=== PATIENT | female | born 1960 | race Caucasian/White ===

== ENCOUNTER 2022-03-18 08:56 | Outpatient (REF) | payer MEDICAID, SELFPAY ==
[2022-03-24 23:27] LABS: HPV mRNA E6/E7 rflx Not Detected (Not Detected)
== END 2022-03-18 08:57 | disposition home or self-care (01) ==
LOC: HO.LAB 08:56
PROVIDERS: Visit Provider Obstetrics & Gynecology
DX: Z01.411 Encounter for gynecological examination (general) (routine) with abnormal findings (principal); Z11.51 Encounter for screening for human papillomavirus (HPV); N95.0 Postmenopausal bleeding; N90.4 Leukoplakia of vulva
CPT/HCPCS: 87624; 88142; 99202

== ENCOUNTER → 2022-03-26 11:15 | Outpatient (REF) | payer MEDICAID, SELFPAY | LOC: HO.CARD 11:15 | PROVIDERS: Visit Provider Internal Medicine | DX: Z13.89 Encounter for screening for other disorder (principal) ==

== ENCOUNTER 2022-03-26 11:23 | Outpatient (REF) | payer MEDICAID, SELFPAY ==
--- NOTE | ~2022-03-26 | MM_ITS ---
EXAMINATION: MM SCREENING DIGITAL BREAST TOMOSYNTHESIS, BILATERAL CLINICAL INFORMATION: Screening. Asymptomatic. The lifetime risk of breast cancer based on the Tyrer-Cuzick Model is 8%. COMPARISON: Mammography: 09/06/2019, 11/09/2015, 10/29/2015 TECHNIQUE: Digital breast tomosynthesis is performed in both the craniocaudal and mediolateral oblique views along with computer-aided detection (CAD). Synthesized 2D images are generated from the tomosynthesis. FINDINGS: There are scattered areas of fibroglandular density (ACR BI-RADS breast composition Category b). There are no significant masses, abnormal calcifications, or other abnormalities. Indication Parenchymal pattern is similar to prior studies. The axilla and skin contours are unremarkable. MM/MM tomosynthesis screening BI IMPRESSION: No mammographic evidence of malignancy. ASSESSMENT: BI-RADS 1: Negative RECOMMENDATION: Routine annual mammography screening. This patient's information was entered into a reminder system with a target due date for their next mammogram.
== END 2022-03-26 11:24 | disposition home or self-care (01) ==
LOC: HO.MAMMO 11:23
PROVIDERS: PCP Family Medicine; Visit Provider Obstetrics & Gynecology
DX: Z12.31 Encounter for screening mammogram for malignant neoplasm of breast (principal); I48.19 Other persistent atrial fibrillation; I10 Essential (primary) hypertension
CPT/HCPCS: 77063; 77067; 93005; 99202

== ENCOUNTER → 2022-04-16 08:44 | Outpatient (REF) | payer MEDICAID, SELFPAY | LOC: HO.SL 08:44 | PROVIDERS: Visit Provider Internal Medicine | DX: Z13.89 Encounter for screening for other disorder (principal) ==

== ENCOUNTER 2022-04-17 09:45 | Outpatient (REF) | payer MEDICAID, SELFPAY | END 2022-04-17 09:46 | disposition home or self-care (01) | LOC: HO.LAB 09:45 | PROVIDERS: PCP Family Medicine; Visit Provider Obstetrics & Gynecology | DX: N95.0 Postmenopausal bleeding (principal); N90.4 Leukoplakia of vulva | CPT/HCPCS: 56605; 58100; 88305 ==

== ENCOUNTER → 2022-05-05 10:54 | Outpatient (REF) | payer MEDICAID, SELFPAY ==
--- NOTE | ~2022-05-05 | US_ITS ---
EXAMINATION: US PELVIS CLINICAL INFORMATION: Postmenopausal bleeding. COMPARISON: Pelvic ultrasound dated 01/10/2022. TECHNIQUE: Ultrasound of the pelvis is performed using both transabdominal and transvaginal transducers along with Doppler. Transvaginal imaging is performed due to inadequate visualization transabdominally. FINDINGS: Uterus: The uterus is anteverted and measures 9.6 x 3.8 x 5.5 cm. The uterus is anteverted and retroflexed. A complex, hypoechoic nabothian cyst is seen measuring 0.8 x 0.6 x 1.0 cm. This is sharply circumscribed and shows no associated color Doppler flow. The double wall endometrial thickness is 1.0 mm. The uterus is smooth in contour and has normal myometrial echogenicity. No visible fibroid. Adnexa: Both ovaries are visualized. There is normal color flow to the adnexa. There is no ovarian torsion. There is no pelvic ascites or fluid collection. Right ovary measures 1.9 x 1.2 x 1.7 cm (volume 2.0 mL). Left ovary measures 1.8 x 1.2 x 1.8 cm (volume 2.0 mL). US/US pelvic and transvaginal IMPRESSION: 1. There is again abnormal postmenopausal thickening of the endometrial stripe. Gynecology evaluation and management are recommended, with consideration for tissue sampling. 2. A complex, hypoechoic nabothian cyst is seen within the cervix, as detailed.
== END ==
LOC: HO.SL 10:54
PROVIDERS: PCP Family Medicine; Visit Provider Obstetrics & Gynecology
DX: N95.0 Postmenopausal bleeding (principal)
CPT/HCPCS: 76830; 76856

== ENCOUNTER → 2022-05-16 10:26 | Outpatient (REF) | payer MEDICAID, SELFPAY ==
--- NOTE | 2022-05-16 10:28 | ECG_ITS ---
Hook-up date: 2022-05-16 10:33:00 Duration: 47:59:00 Test Indications: PALPITATIONS Medications: [id number] QRS complexes 731 Ventricular ectopics which represent <1 % of total QRS comp. * Supraventricular ectopics which represent % of total QRS comp. * Paced QRS complexs which represent % of total QRS comp. VENTRICULAR ECTOPY 709 Isolated 0 Bigeminal Cycles 11 Couplets 0 Runs 0 Beats in Runs * Beats LONGEST at * BPM at :: -- * Beats FASTEST at * BPM at :: -- SUPRAVENTRICULAR ECTOPY * Isolated * Couplets * Runs * Beats in Runs * Beats LONGEST at * BPM at :: -- * Beats FASTEST at * BPM at :: -- HEART RATES 41 MIN at 00:20:26 2022-05-17 92 AVG 217 MAX at 07:02:17 2022-05-17 LONGEST RR 2.2720 secs at 00:03:42 2022-05-18 S-T LEVELS Channel 1 - 128 mm at 10:33:00 2022-05-16 - 128 mm at 10:33:00 2022-05-16 Channel 2 - 128 mm at 10:33:00 2022-05-16 - 128 mm at 10:33:00 2022-05-16 Channel 3 - 128 mm at 02:95:21 -- - 128 mm at 02:95:21 Basic rhythm Atrial fibrillation Average HR of 92 bpm with maximum HR of 217 bpm, with borderline rate control No significant pauses. Occasional Premature ventricular complexes Patient did not report any symptoms in the diary Referred By: Daryn Nair Overread By: CARMEL HUDDLESTON MD
--- NOTE | 2022-05-16 10:28 | CA_ITS ---
Transthoracic Echocardiogram Patient (Last, First, Middle): Kavita Gil M Gender: Female Date of : 1960 Age: 61 Procedure Date: 05/16/2022 Procedure Type: Transthoracic Echocardiogram Location: OP Height: 165.1 cm Weight: 121.56 kg BSA: 2.24 m2 Heart Rate: bpm BP: 145 / 84 mmHg Steam Flattener: Referring MD: Daryn Nair MD Symptoms: I48.19 - Other persistent atrial fibrillation Study Quality: Fair ECG Rhythm: Atrial Fibrillation with rapid rate Conclusions: - LVEF difficult to assess due to atrial fibrillation with rapid rate, but suspect >50%. - No obvious valvular pathology seen on this study. - There is mild dilatation of the ascending aorta measuring 4.20 cm. Findings Left Ventricle Normal left ventricular cavity size. There is moderately increased left ventricular wall thickness. Regional wall motion abnormalities can not be excluded due to suboptimal endocardial definition. Diastolic function is indeterminate on the basis of available data. LVEF difficult to assess due to atrial fibrillation with rapid rate, but suspect >50%. Right Ventricle Normal right ventricular cavity size and systolic function. Atria The left atrium is mildly dilated. The right atrium is normal in size. Aortic Valve The aortic valve was not well visualized. There is no aortic valve stenosis. There is no aortic valve regurgitation. Mitral Valve The mitral valve appears normal. There is trace mitral valve regurgitation. There is no mitral valve stenosis. Pulmonic Valve The pulmonic valve is likely normal. Tricuspid Valve There is trace tricuspid valve regurgitation. There is no evidence of pulmonary hypertension. Great Vessels There is mild dilatation of the ascending aorta measuring 4.20 cm. Venous The inferior vena cava is normal in size and collapses greater than 50% with inspiration. Pericardium/Pleural There is no evidence of pericardial effusion. Prior Study Comparison No prior study available for comparison. Recommendations, Care & Conclusions No obvious valvular pathology seen on this study. Measurements 2D Linear Measurements IVSd: 1.33 0.6-0.9/0.6-1.0 cm LVIDd: 4.85 3.9-5.3/4.2-5.9 cm LVIDd Index: 2.17 2.4-3.2/2.2-3.1 cm/m2 LVIDs: 3.03 2.0-3.6 cm LVPWd: 1.33 0.7-1.1 cm Ao Root: 3.40 2.1-3.5 cm LA Diam: 4.40 2.7-3.8/3.0-4.0 cm LAIDs Index: 1.96 1.5-2.3 cm/m2 LV Mass: 321.86 67-162/88-224 g LV Mass Index: 143.69 43-95/49-115 g/m2 LVOT Diam: 2.10 3.0+(-)1.3 cm 2D Systolic Function EF 4C: 53.30 >55% EF 2C: 47.60 >55% EF BiP: 49.20 >55% Mitral Valve MV Pk E: 1.16 MV Decel Time: 137.00 E'Lateral: 10.10 E'Medial: 8.05 E/E' Med: 14.40 E/E' Lat: 11.50 PHT: 40.00 MVA PHT: 5.50 Decel Mills: 8.42 Aortic Valve AoV Pk Rohit: 1.31 AoV Mn Rohit: 0.95 AoV VTI: 0.31 AoV Pk Grad: 7.00 Aov Mn Grad: 4.00 ELIZ Cont.VTI: 1.94 LVOT LVOT Pk Rohit: 0.90 LVOT Mn Rohit: 0.61 LVOT VTI: 0.18 LVOT Pk Grad: 3.00 LVOT Mn Grad: 2.00 LVOT Diam: 2.10 LVOT Area: 3.46 Diastolic Function MV Pk E: 1.16 E'Medial: 8.05 E/E' Med: 14.40 E' Laterial: 10.10 E/E' Lat: 11.50 Right Ventricle TAPSE (mm): 18.00 Tricuspid Valve TR Pk Rohit: 2.05 TR Pk Grad: 17.00 RA Press: 3.00 RVSP: 20.00 Great Vessels Aorta Ao Root-2D: 3.40 2.0-3.7 cm Ao Asc: 4.20 2.1-3.4 cm Pulmonary Valve PV Pk Rohit: 0.97 Peak PV Grad: 4.00 Updated in Other Vendor System with Status of Final Daryn Nair MD electronically signed on 05/17/2022 1:22:21 PM with status of Final
--- NOTE | 2022-05-16 11:36 | ECG_ITS ---
Test Reason : afib, sob, fatigue Blood Pressure : / mmHG Vent. Rate : 143 BPM Atrial Rate : 000 BPM P-R Int : 000 ms QRS Dur : 074 ms QT Int : 256 ms P-R-T Axes : 000 -04 002 degrees QTc Int : 395 ms Atrial fibrillation with rapid ventricular response with premature ventricular or aberrantly conducted complexes ST & T wave abnormality, consider inferior ischemia Abnormal ECG When compared with ECG of 28-OCT-2011, Atrial fibrillation with rapid ventricular response has replaced Sinus rhythm Heart rate has increased Referred By: Daryn Nair Electronically Signed By:PEÑA ESCALERA
== END ==
LOC: HO.CARD 10:26
PROVIDERS: PCP Family Medicine; Visit Provider Internal Medicine
DX: I48.19 Other persistent atrial fibrillation (principal); R00.2 Palpitations
CPT/HCPCS: 36415; 80053; 83880; 84484; 85025; 87635; 93005; 93225; 93226; 93306; 96374; 99284

== ENCOUNTER 2022-05-16 12:00 | Emergency (ER) | payer MEDICAID, SELFPAY ==
--- NOTE | 2022-05-16 12:02 | ECG_ITS ---
Test Reason : palpitations Blood Pressure : / mmHG Vent. Rate : 123 BPM Atrial Rate : 000 BPM P-R Int : 000 ms QRS Dur : 076 ms QT Int : 354 ms P-R-T Axes : 000 -09 -13 degrees QTc Int : 506 ms Atrial fibrillation with rapid ventricular response with premature ventricular or aberrantly conducted complexes Abnormal ECG When compared with ECG of 16-MAY-2022 11:32, Heart rate has decreased Referred By: Generic ED Physician Electronically Signed By:PEÑA ESCALERA
[2022-05-16 12:04] VITALS: BP 133/81; PULSE 88; RESP 18; TEMP 36.6; O2SAT 97; BMI 52.1
[2022-05-16 12:26] LABS: MANUAL DIFF FLAG NO
[2022-05-16 12:28] VITALS: BP 156/78; PULSE 124; RESP 18; TEMP 36.5; O2SAT 97
[2022-05-16 12:28] LABS: Basophils Percent Auto 0.2 % (0-2); Eosinophils Absolute Auto 0.1 X10*3/uL (0.0-0.4); Eosinophils Percent Auto 0.8 % (0-4); Hematocrit 44.3 % (37.0-47.0); Hemoglobin 13.8 g/dl (12.0-16.0); Imm Gran Abs Auto 0.04 X10*3/uL (0.00-0.03); Imm Gran Pct Auto 0.4 % (0.0-0.4); Lymphocytes Absolute Auto 2.3 X10*3/uL (1.2-4.9); Lymphocytes Percent Auto 21.2 % (20-40); Mean Corpuscular HGB Conc 31.2 g/dl (31.0-35.0); Mean Corpuscular Hemoglobin 26.6 pg (27.0-33.0); Mean Corpuscular Volume 85.5 fL (80.0-98.0); Mean Platelet Volume 10.1 fL (9.4-12.3); Monocytes Absolute Auto 0.8 X10*3/uL (0.1-1.2); Monocytes Percent Auto 7.2 % (2-11); Neutrophils Absolute Auto 7.5 x10*3/uL (2.0-8.3); Neutrophils Percent Auto 70.2 % (45-73); Platelet Count 342 X10*3/uL (160-400); Red Blood Count 5.18 X10*6/uL (4.20-5.50); Red Cell Distribution Width 15.9 % (11.0-16.0); White Blood Count 10.6 X10*3/uL (4.8-10.8)
--- NOTE | 2022-05-16 12:36 | ED_ITS ---
HPI - Arrhythmia/Palpitations General Chief Complaint: Arrhythmia/Palpitations Stated Complaint: heart rate high Time Seen by Provider: 05/16/22 12:19 Source: patient, family and old records reviewed Mode of arrival: ambulatory History of Present Illness HPI narrative: Patient with the relatively recent diagnosis of atrial fibrillation about 2-3 months ago. She is on metoprolol and Eliquis. Today she went for an echocardiogram and Holter monitor placement in her cardiology office and was found have a heart rate in the 160s to 180s range maximum. She was sent to the emergency department for further workup and treatment. She denies chest pain. She does describe palpitations and can feel when her heart is racing. She does not know of any precipitating factors that cause her heart to race today other than social stressors at home. No recent illnesses. No cough. Some dyspnea with exertion. No history of thromboembolic disease. She denies missing medications Related Data Home Medications Medication Instructions Recorded Confirmed albuterol sulfate 90 mcg/actuation 2 puff PO Q4-6H PRN 03/18/22 03/26/22 aerosol inhaler (ProAir HFA) allopurinol 100 mg tablet 100 mg PO 03/18/22 03/26/22 amlodipine 5 mg tablet 5 mg PO QAM 03/18/22 03/26/22 apixaban 5 mg tablet (Eliquis) 5 mg PO BID 03/18/22 03/26/22 atorvastatin 40 mg tablet 40 mg PO BEDTIME 03/18/22 03/26/22 calcium carbonate 600 mg-vitamin 1 tab PO 03/18/22 03/26/22 D3 10 mcg (400 unit) tablet sertraline 25 mg tablet 25 mg PO QAM 03/18/22 03/26/22 valsartan 320 mg tablet 320 mg PO QAM 03/18/22 03/26/22 metoprolol tartrate 50 mg tablet 50 mg PO BID 03/26/22 03/26/22 Previous Rx's Medication Instructions Recorded diltiazem HCl 120 mg 120 mg PO DAILY #30 caps 05/16/22 capsule,extended release 24 hr Allergies Allergy/AdvReac Type Severity Reaction Status Date / Time No Known Allergies Allergy Verified 03/26/22 11:04 Review of Systems Constitutional: Comments: No fevers or chills Cardiovascular: Comments: Palpitations. No chest pain Respiratory: Comments: Dyspnea on exertion only. No cough Gastrointestinal: Comments: No nausea vomiting diarrhea or abdominal pain Musculoskeletal: Comments: No musculoskeletal pain or injuries Integumentary/Breasts: Comments: No rash Neurologic: Comments: No focal neurologic deficits [facility] Past Medical History Medical History (Updated 05/16/22 @ 12:40 by Trae Ziegler MD) HTN (hypertension) Hyperlipidemia Persistent atrial fibrillation Surgical History History of section Hx of tubal ligation Family History Family History Father HTN (hypertension) Mother Epilepsia Alzheimer disease Paternal Uncle HTN (hypertension) Sister HTN (hypertension) Social History Social History Household Members: Spouse Housing: House Alcohol intake: former Patient Tobacco Use Status: Former Tobacco user Advance Directives: No Advance Directives Information Provided: No Physical Exam Vital Signs: Vital Signs: Last Vital Signs Temp 97.7 F 05/16/22 12:28 Pulse 89 05/16/22 12:59 Resp 16 05/16/22 12:59 BP 156/78 H 05/16/22 12:28 Pulse Ox 99 05/16/22 12:59 O2 Del Method 05/16/22 12:59 BMI result Body Mass Index 52.1 Const: Other: Awake alert. No acute distress. Ambulated to room without difficulty Resp: Other: Diminished but clear and equal Cardio: Other: Irregularly irregular and tachycardic to approximately 130 beats per minute on my exam GI: Other: Soft nontender nondistended Skin: Other: Warm pink and dry without rash Neuro: Other: Nonfocal neuro exam Course Course Course Narrative: Atrial fibrillation with RVR Rule out ischemia Patient is on metoprolol but had been on that prior to her diagnosis of atrial fibrillation. Will medicate with calcium channel licha for rate control. Blood pressure is elevated and should tolerate dual therapy without difficulty. Await lab work. EKG shows atrial fibrillation with RVR without evidence of acute ischemia 13:03. Diltiazem, 10 mg IV with good rate control now in the 80-90 range. Will add diltiazem p.o., 30 mg. Will discuss with her clinical data specialist. 13:11. Cardiology agrees with plan. Recommends we stop amlodipine. Stable for discharge home MDM - Arrhythmia/Palpitations Lab Data Result diagrams: 05/16/22 12:21 05/16/22 12:21 Labs: Lab Results 05/16/22 05/16/22 05/16/22 Range/Units 12:21 12:21 12:21 WBC 10.6 (4.8-10.8) X10*3/uL RBC 5.18 (4.20-5.50) X10*6/uL Hgb 13.8 (12.0-16.0) g/dl Hct 44.3 (37.0-47.0) % MCV 85.5 (80.0-98.0) fL MCH 26.6 L (27.0-33.0) pg MCHC 31.2 (31.0-35.0) g/dl RDW 15.9 (11.0-16.0) % Plt Count 342 (160-400) X10*3/uL MPV 10.1 (9.4-12.3) fL Immature Gran % (Auto) 0.4 (0.0-0.4) % Neut % (Auto) 70.2 (45-73) % Lymph % (Auto) 21.2 (20-40) % Dougherty % (Auto) 7.2 (2-11) % Eos % (Auto) 0.8 (0-4) % Baso % (Auto) 0.2 (0-2) % Lymph # (Auto) 2.3 (1.2-4.9) X10*3/uL Dougherty # (Auto) 0.8 (0.1-1.2) X10*3/uL Eos # (Auto) 0.1 (0.0-0.4) X10*3/uL Baso # (Auto) 0.0 (0.0-0.2) X10*3/uL Abs Immat Gran (auto) 0.04 H (0.00-0.03) X10*3/uL Absolute Neuts (auto) 7.5 (2.0-8.3) x10*3/uL Absolute Nucleated RBC 0.000 (0.0-0.012) X10*3/uL Nucleated RBC % (auto) 0.0 (0.0-0.2) /100WBC Sodium 141 (135-145) mmol/L Potassium 3.8 (3.3-5.1) mmol/L Chloride 106 (96-108) mmol/L Carbon Dioxide 24 (22-29) mmol/L Anion Gap 15 (12-20) BUN 12 (9-16) mg/dL Creatinine 1.07 (0.5-1.4) mg/dL Estim Creat Clear Calc 64.3 Estimated GFR 52 Random Glucose 85 (60-115) mg/dL Calcium 9.2 (8.4-10.2) mg/dL Total Bilirubin 0.6 (0.0-1.0) mg/dL AST 15 (5-31) U/L ALT 15 (0-31) U/L Alkaline Phosphatase 90 (39-117) U/L Troponin I High Sens < 3.5 (<3.5-17.0) ng/L Total Protein 7.3 (6.5-8.0) g/dL Albumin 3.9 (3.5-5.0) g/dL COVID-19 ([facility]) (Negative) COVID-19 Clin Com 05/16/22 Range/Units 12:21 WBC (4.8-10.8) X10*3/uL RBC (4.20-5.50) X10*6/uL Hgb (12.0-16.0) g/dl Hct (37.0-47.0) % MCV (80.0-98.0) fL MCH (27.0-33.0) pg MCHC (31.0-35.0) g/dl RDW (11.0-16.0) % Plt Count (160-400) X10*3/uL MPV (9.4-12.3) fL Immature Gran % (Auto) (0.0-0.4) % Neut % (Auto) (45-73) % Lymph % (Auto) (20-40) % Dougherty % (Auto) (2-11) % Eos % (Auto) (0-4) % Baso % (Auto) (0-2) % Lymph # (Auto) (1.2-4.9) X10*3/uL Dougherty # (Auto) (0.1-1.2) X10*3/uL Eos # (Auto) (0.0-0.4) X10*3/uL Baso # (Auto) (0.0-0.2) X10*3/uL Abs Immat Gran (auto) (0.00-0.03) X10*3/uL Absolute Neuts (auto) (2.0-8.3) x10*3/uL Absolute Nucleated RBC (0.0-0.012) X10*3/uL Nucleated RBC % (auto) (0.0-0.2) /100WBC Sodium (135-145) mmol/L Potassium (3.3-5.1) mmol/L Chloride (96-108) mmol/L Carbon Dioxide (22-29) mmol/L Anion Gap (12-20) BUN (9-16) mg/dL Creatinine (0.5-1.4) mg/dL Estim Creat Clear Calc Estimated GFR Random Glucose (60-115) mg/dL Calcium (8.4-10.2) mg/dL Total Bilirubin (0.0-1.0) mg/dL AST (5-31) U/L ALT (0-31) U/L Alkaline Phosphatase (39-117) U/L Troponin I High Sens (<3.5-17.0) ng/L Total Protein (6.5-8.0) g/dL Albumin (3.5-5.0) g/dL COVID-19 ([facility]) Negative (Negative) COVID-19 Clin Com See Note Discharge Plan Discharge Clinical Impression: Atrial fibrillation Patient Disposition: Home, Self-Care Instructions: A-fib (Atrial Fibrillation) (ED), Blood Thinners (ED) Additional Instructions: We are prescribing Cardizem to help keep your heart rate slow. Stop taking amlodipine in the meantime. Follow-up with your clinical data specialist as scheduled Prescriptions: New diltiazem HCl 120 mg capsule,extended release 24hr 120 mg PO DAILY Qty: 30 0RF No Action valsartan 320 mg tablet 320 mg PO QAM amlodipine 5 mg tablet 5 mg PO QAM atorvastatin 40 mg tablet 40 mg PO BEDTIME calcium carbonate-vitamin D3 600 mg-10 mcg (400 unit) tablet 1 tab PO allopurinol 100 mg tablet 100 mg PO Eliquis 5 mg tablet 5 mg PO BID sertraline 25 mg tablet 25 mg PO QAM albuterol sulfate [ProAir HFA] 90 mcg/actuation HFA aerosol inhaler 2 puff PO Q4-6H PRN metoprolol tartrate 50 mg tablet 50 mg PO BID
[2022-05-16 12:43] LABS: COVID-19 Test Negative (Negative); IDNOW Serial# 9DB6401D
[2022-05-16] MEDS: dilTIAZem HCL 50 MG/10 ML VIAL 10 MG IVPUSH (12:45)
[2022-05-16 12:48] LABS: Alanine Aminotransferase 15 U/L (0-31); Albumin Level 3.9 g/dL (3.5-5.0); Alkaline Phosphatase 90 U/L (39-117); Anion Gap 15 (12-20); Aspartate Amino Transferase 15 U/L (5-31); Bilirubin Total 0.6 mg/dL (0.0-1.0); Blood Urea Nitrogen 12 mg/dL (9-16); Calcium 9.2 mg/dL (8.4-10.2); Carbon Dioxide 24 mmol/L (22-29); Chloride 106 mmol/L (96-108); Creatinine Clr Calc Pharmacy 64.3; Estimated Glomerular Filt Rate 52; Glucose Random 85 mg/dL (60-115); Potassium 3.8 mmol/L (3.3-5.1); Sodium 141 mmol/L (135-145); Total Protein 7.3 g/dL (6.5-8.0)
[2022-05-16 12:52] LABS: Troponin-I High Sensitivity < 3.5 ng/L (<3.5-17.0)
[2022-05-16 12:59] VITALS: PULSE 89; RESP 16; O2SAT 99
[2022-05-16] MEDS: dilTIAZem HCL 30 MG TABLET PO (13:18)
[2022-05-16 13:52] LABS: B Type Natriuretic Peptide 128 pg/mL (<100)
== END 2022-05-18 22:40 | disposition home or self-care (01) ==
PROVIDERS: Emergency Provider Emergency Medicine
DX: I48.91 Unspecified atrial fibrillation (principal); R00.2 Palpitations; R06.02 Shortness of breath; Z20.822 Contact with and (suspected) exposure to COVID-19; Z79.899 Other long term (current) drug therapy; Z87.891 Personal history of nicotine dependence
CPT/HCPCS: 36415; 80053; 83880; 84484; 85025; 87635; 93005; 96374; 99284

== ENCOUNTER → 2022-05-19 10:26 | Outpatient (BNVA) | payer MEDICAID, SELFPAY | PROVIDERS: PCP Family Medicine; Visit Provider Obstetrics & Gynecology | DX: N95.0 Postmenopausal bleeding (principal) | CPT/HCPCS: 99212 ==

== ENCOUNTER → 2022-05-27 10:52 | Outpatient (BNVA) | payer MEDICAID, SELFPAY | PROVIDERS: PCP Family Medicine; Visit Provider Internal Medicine | DX: I48.19 Other persistent atrial fibrillation (principal); I10 Essential (primary) hypertension; G47.33 Obstructive sleep apnea (adult) (pediatric); Z79.01 Long term (current) use of anticoagulants; Z79.899 Other long term (current) drug therapy | CPT/HCPCS: 99212 ==

== ENCOUNTER → 2022-09-25 12:59 | Outpatient (REF) | payer MEDICAID, SELFPAY ==
--- NOTE | 2022-09-25 13:03 | HM_ITS ---
* Total monitoring time 2 days. * Underlying rhythm is atrial fibrillation. Average ventricular rate 67/Min. Range 42 to 121/Min. * Most to the ventricular rates are within range. * Rare PVCs with low burden. * No significant pauses or AV blocks. * No patient marker or diary events. * Overall, well controlled atrial fibrillation. MTDD
== END ==
LOC: HO.CARD 12:59
PROVIDERS: Visit Provider Internal Medicine
DX: I48.19 Other persistent atrial fibrillation (principal)
CPT/HCPCS: 93242

== ENCOUNTER 2023-02-23 10:46 | Outpatient (REF) | payer MEDICAID, SELFPAY | END 2023-02-23 10:47 | disposition home or self-care (01) | LOC: HO.HHCX 10:46 | PROVIDERS: Visit Provider Student in an Organized Health Care Education/Training Program | DX: M25.562 Pain in left knee (principal) | CPT/HCPCS: 73560 ==

== ENCOUNTER 2023-03-18 09:23 | Outpatient (REF) | payer MEDICAID, SELFPAY ==
[2023-03-18 11:28] LABS: MANUAL DIFF FLAG NO
[2023-03-18 11:38] LABS: Basophils Percent Auto 0.4 % (0-2); Eosinophils Absolute Auto 0.1 X10*3/uL (0.0-0.4); Eosinophils Percent Auto 1.5 % (0-4); Hematocrit 43.9 % (37.0-47.0); Imm Gran Abs Auto 0.03 X10*3/uL (0.00-0.03); Imm Gran Pct Auto 0.4 % (0.0-0.4); Lymphocytes Absolute Auto 2.2 X10*3/uL (1.2-4.9); Lymphocytes Percent Auto 27.1 % (20-40); Mean Corpuscular HGB Conc 31.9 g/dl (31.0-35.0); Mean Corpuscular Hemoglobin 28.4 pg (27.0-33.0); Mean Platelet Volume 11.4 fL (9.4-12.3); Monocytes Absolute Auto 0.5 X10*3/uL (0.1-1.2); Monocytes Percent Auto 6.1 % (2-11); Neutrophils Absolute Auto 5.3 x10*3/uL (2.0-8.3); Neutrophils Percent Auto 64.5 % (45-73); Platelet Count 287 X10*3/uL (160-400); Red Blood Count 4.93 X10*6/uL (4.20-5.50); Red Cell Distribution Width 13.4 % (11.0-16.0); White Blood Count 8.2 X10*3/uL (4.8-10.8)
[2023-03-18 11:44] LABS: Estimated Average Glucose 108 mg/dL; Hemoglobin A1c % 5.4 %
[2023-03-18 12:02] LABS: Alanine Aminotransferase 12 U/L (0-31); Albumin Level 3.5 g/dL (3.5-5.0); Alkaline Phosphatase 78 U/L (39-117); Anion Gap 10 (12-20); Aspartate Amino Transferase 12 U/L (5-31); Bilirubin Direct 0.2 mg/dL (0.0-0.5); Bilirubin Total 0.6 mg/dL (0.0-1.0); Blood Urea Nitrogen 16 mg/dL (9-16); Calcium 9.2 mg/dL (8.4-10.2); Carbon Dioxide 28 mmol/L (22-29); Chloride 108 mmol/L (96-108); Cholesterol 194 mg/dL; Estimated Glomerular Filt Rate 48; Glucose Random 102 mg/dL (60-115); HDL Cholesterol 42 mg/dL; LDL Cholesterol Calculated 132 mg/dl; Potassium 3.9 mmol/L (3.3-5.1); Sodium 142 mmol/L (135-145); Triglycerides 102 mg/dL
[2023-03-18 12:08] LABS: HIV AB/AG Nonreactive (Nonreactive); HIV Num 1 0.05 S/CO (0.00-0.99)
[2023-03-18 12:14] LABS: ~HepC Num1 0.12 S/CO (0.00-0.79); ~Hepatitis C Antibody Nonreactive (Nonreactive)
[2023-03-18 12:21] LABS: TSH reflex Free T4 0.89 uIU/mL (0.32-4.0)
[2023-03-20 02:48] LABS: Rubella IgG Antibody <0.90 Index
[2023-03-20 10:30] LABS: Rubeola IgG (Measles) >300.00 AU/mL
== END 2023-03-18 09:24 | disposition home or self-care (01) ==
LOC: HO.HHCL 09:23
PROVIDERS: Visit Provider Family Medicine
DX: Z11.4 Encounter for screening for human immunodeficiency virus [HIV] (principal); Z11.3 Encounter for screening for infections with a predominantly sexual mode of transmission; E11.65 Type 2 diabetes mellitus with hyperglycemia; E66.01 Morbid (severe) obesity due to excess calories; I10 Essential (primary) hypertension; Z78.9 Other specified health status
CPT/HCPCS: 36415; 80048; 80061; 80076; 83036; 84443; 85025; 86735; 86762; 86765; 86803; 87389

== ENCOUNTER → 2023-06-03 21:13 | Outpatient (REF) | payer MEDICAID, SELFPAY | LOC: HO.SL 21:13 | PROVIDERS: PCP Family Medicine; Visit Provider Internal Medicine | DX: I48.19 Other persistent atrial fibrillation (principal) | CPT/HCPCS: 95810 ==

== ENCOUNTER → 2023-06-03 21:22 | Outpatient (BNV) | payer MEDICAID, SELFPAY | PROVIDERS: PCP Family Medicine; Visit Provider Internal Medicine | DX: G47.33 Obstructive sleep apnea (adult) (pediatric) (principal) | CPT/HCPCS: 95810 ==

== ENCOUNTER 2023-07-07 12:53 | Outpatient (AMB) | payer MEDICAID, SELFPAY ==
--- NOTE | 2023-07-07 12:59 | A.OFFVIS_ITS ---
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 She has a history of persistent atrial fibrillation, HTN, and now sleep apnea. She reports occasional fast heart rates/palpitations. Denies SOB, swelling, or bleeding issues. Tolerating meds. BPs at home have been 120-130 systolic. [facility] Medical History Persistent atrial fibrillation Hyperlipidemia HTN (hypertension) Surgical History Hx of tubal ligation History of section Family History Father HTN (hypertension) Mother Epilepsia Alzheimer disease Paternal Uncle HTN (hypertension) Sister HTN (hypertension) Social History Household Members: Spouse Housing: House Alcohol intake: former Patient Tobacco Use Status: Former Tobacco user Review of Systems Const Denies chills, Denies fatigue, Denies fever(s), Denies frequent falls, Denies weakness, Denies weight gain and Denies weight loss ENT Denies dizziness Card Denies chest pain, Denies chest pain with activity, Denies syncope, Denies rapid heart rate, Denies pedal edema, Denies irregular heart rhythm, Denies leg edema, Denies lightheadedness, Denies palpitations, Denies dyspnea, Denies dyspnea on exertion, Denies orthopnea and Denies other (LOC) Resp Denies cough, Denies dyspnea and Denies dyspnea on exertion GI Denies hematochezia and Denies change in bowel habits Musc Denies abnormal gait, Denies arthralgias, Denies muscle weakness, Denies numbness, Denies radiating pain into limb and Denies tingling Neuro Denies abnormal gait, Denies dizziness, Denies syncope, Denies frequent falls, Denies numbness, Denies tingling and Denies weakness Endo Denies fatigue and Denies palpitations Physical Exam Vital Signs: Last Vital Signs Pulse 76 07/07/23 13:00 BP 118/60 07/07/23 13:00 BMI result Body Mass Index 52.6 Const General: healthy appearing and no acute distress Orientation/consciousness: patient oriented x3 HEENT Other: Unremarkable Head: Yes normal to inspection Eyes General: appearance normal, both eyes and all related structures Neck Neck: Yes normal visual inspection Chest Chest palpation & inspection: normal inspection of the chest Resp Effort & Inspection: normal respiratory effort Auscultation: clear to auscultation bilaterally Cardio Jugular venous distension: no JVD Palpation: normal PMI Rate: regular rate Rhythm: regular rhythm Heart sounds: S1 normal heart sound present, S2 normal heart sound present, no click, no gallops, no murmurs and no rubs GI Inspection: Yes normal to inspection Palpation (GI): Soft to palpation Back/Spine/Pelvis Other: unremarkable Skin General skin exam: no rashes or lesions noted Neuro General: patient oriented x3 Extrem General: Yes normal to inspection Psych Appearance: grossly normal Mental Status: mental status grossly normal Office Procedures EKG Details: EKG today, Atrial Fibrillation. Rate: 72 bpm QTc 457ms. No significant changes. [id number], Complete Assessment & Plan Assessment & Plan (1) ELENI (obstructive sleep apnea): Code(s): G47.33 - Obstructive sleep apnea (adult) (pediatric) (2) Essential (primary) hypertension: Code(s): I10 - Essential (primary) hypertension (3) Persistent atrial fibrillation: Code(s): I48.19 - Other persistent atrial fibrillation Plan Will refer to pulmonology for CPAP use. Discuss the importance of CPAP use and the effects of poor quality sleep on the heart and body. She agreed. Continue heart healthy diet, reduction of weight. and medications as currently prescribed. Report any new or worsening sysmptoms Will have her return in 6 months to meet with Dr. Nair for a follow-up. Orders: Referrals Pulmonary Medicine Referral G47.33 - Obstructive sleep apnea (adult) (pediatric), I10 - Essential (primary) hypertension, I48.19 - Other persistent atrial fibrillation Coding Level of Care Code Est Pt Level 3 (36596) Diagnoses ELENI (obstructive sleep apnea) G47.33 Essential (primary) hypertension I10 Persistent atrial fibrillation I48.19 CPT Codes EKG - CPT: 34705-[id number], Complete ([id number])
[2023-07-07 13:00] VITALS: BP 118/60; PULSE 76; BMI 52.6
== END 2023-07-07 13:19 | disposition home or self-care (01) ==
PROVIDERS: PCP Family Medicine; Visit Provider Nurse Practitioner
DX: G47.33 Obstructive sleep apnea (adult) (pediatric) (principal); I10 Essential (primary) hypertension; I48.19 Other persistent atrial fibrillation
CPT/HCPCS: 93010; 99213

== ENCOUNTER → 2023-07-07 12:53 | Outpatient (BNVA) | payer MEDICAID, SELFPAY | PROVIDERS: PCP Family Medicine; Visit Provider Nurse Practitioner | DX: I48.19 Other persistent atrial fibrillation (principal); I10 Essential (primary) hypertension; G47.33 Obstructive sleep apnea (adult) (pediatric) | CPT/HCPCS: 93005; 99212 ==

== ENCOUNTER 2023-07-22 14:40 | Outpatient (REF) | payer MEDICARE, MEDICAID, SELFPAY ==
--- NOTE | ~2023-07-22 | XR_ITS ---
EXAMINATION: XR THORACOLUMBAR SPINE CLINICAL INFORMATION: Back pain for 2 days COMPARISON: 03/12/2016 TECHNIQUE: 2 views thoracic spine FINDINGS: Mild degenerative changes are noted throughout the spine with fusion of the anterior longitudinal ligament. There is mild anterior wedging of a midthoracic vertebral body which is unchanged when compared to 2016. No bony destructive lesions or acute fractures. Paraspinal soft tissues appear normal. 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 No interval change when compared to 2016. No acute finding.
== END 2023-07-22 14:41 | disposition home or self-care (01) ==
LOC: HO.HHCX 14:40
PROVIDERS: Visit Provider Internal Medicine Geriatric Medicine
DX: M54.6 Pain in thoracic spine (principal); M25.512 Pain in left shoulder
CPT/HCPCS: 72070

== ENCOUNTER 2023-08-04 13:56 | Outpatient (AMB) | payer MEDICARE, MEDICAID, SELFPAY ==
--- NOTE | 2023-08-04 14:24 | A.OFFVIS_ITS ---
Intake Vital Signs 08/04/23 14:25 Height 5 ft Weight 271 lb 2.697 oz BMI 53.0 BP 124/82 Blood Pressure Location Rt brachial Position Sitting Pulse 76 Pulse Source Doppler Pulse Oximetry (%) 96 Oxygen Delivery Method Room Air Intake Visit Reasons: eleni Health Researcher Required: Yes Health Researcher Name: Iwona MooreRayneEmmett Allergies No Known Allergies Allergy (Verified 08/04/23 14:31) Medication List - Last Reconciled 08/04/23 by Lloyd Anderson MD allopurinol 100 mg PO apixaban (Eliquis) 5 mg PO BID atorvastatin 40 mg PO BEDTIME diltiazem HCl (Cartia XT) 120 mg PO QAM metoprolol tartrate 100 mg PO BID sertraline 25 mg PO QAM valsartan 320 mg PO QAM Do you need a note to return to daycare/school/sports/work: No HPI eleni HPI Details 63 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 PATIENT HAS BEEN REFERRED FOR MANAGEMENT OF HER SLEEP APNEA. SHE HAS HAD RECENT ONSET OF ATRIAL FIBRILLATION AND WAS SEEN BY CARDIOLOGY SERVICE, WHO REFERRED HER FOR SLEEP STUDY. THE PATIENT HAS PUT ON SOME WEIGHT IN DURING THE PAST 1 YEAR BECAUSE SHE HAS DIFFICULTY IN WALKING DUE TO KNEE PROBLEMS. ACCORDING TO HER SHE HAS BEEN SNORING VERY LOUDLY AT NIGHT. HER SLEEP HAS BEEN FRAGMENTED WITH FREQUENT AWAKENINGS , AND SHE HAS HAD DAYTIME SLEEPINESS. SHE DENIES HAVING ANY CHRONIC PULMONARY PROBLEMS. SHE IS NONSMOKER . DURING THE PAST FEW YEARS HER WEIGHT HAS BEEN GRADUALLY GOING UP. [facility] Medical History (Updated 08/04/23 @ 15:00 by Lloyd Anderson MD) Morbid obesity Persistent atrial fibrillation Hyperlipidemia HTN (hypertension) Surgical History Hx of tubal ligation History of section Family History Father HTN (hypertension) Mother Epilepsia Alzheimer disease Paternal Uncle HTN (hypertension) Sister HTN (hypertension) Social History Household Members: Spouse Housing: House Alcohol intake: former Patient Tobacco Use Status: Former Tobacco user Review of Systems Const All systems reviewed & are unremarkable except as noted in HPI and below Reports snoring Eyes Reports no additional complaints ENT Reports no additional complaints Card Denies chest pain, Denies irregular heart rhythm, Denies leg edema and Denies dyspnea Resp Denies cough, Denies dyspnea, Reports snoring and Denies wheezing GI Reports no additional complaints Reports no additional complaints Musc Reports arthralgias (BOTH KNEES) Skin/Breast Reports system reviewed and no additional complaints, except as documented Neuro Reports no additional complaints Psych Reports depression (BEING TREATED WITH MEDS) Endo Reports no additional complaints Chris/Lymph Reports no additional complaints Aller/Immun Reports no additional complaints and Denies wheezing Physical Exam Const General: comfortable, no acute distress, alert and awake Orientation/consciousness: patient oriented x3 HEENT Head: Yes normal to inspection General nose exam: No nasal polyps present and No nasal discharge present Face and sinus: Yes sinuses nontender Mouth: oropharynx abnormals (NARROW AND CROWDED, MALLAMPATI CLASS 4) Teeth and gingiva: other (MILD RETROGANTHIA OF LOWER JAW) Throat: Yes posterior oropharynx normal Eyes General: appearance normal, both eyes and all related structures Neck Neck: Yes normal visual inspection, Yes no lymphadenopathy, Yes trachea midline, Yes no JVD and Yes other (NECK CIRCUMFERENCE 18 IN) Thyroid: Thyroid normal Chest Chest palpation & inspection: normal inspection of the chest, normal palpation of entire chest wall and no tenderness Resp Effort & Inspection: normal respiratory effort Auscultation: clear to auscultation bilaterally, no crackles and no wheezes Cardio Palpation: normal PMI Rate: regular rate Rhythm: regular rhythm Heart sounds: no gallops and no murmurs GI Palpation (GI): Soft to palpation, Tenderness to palpation present (GI), No hepatosplenomegaly present, Palpable mass present and Other GI palpation findings present (ABDOMEN IS MODERATELY OBESE AND PROTUBERANT) Auscultation: normal bowel sounds Back/Spine/Pelvis Thoracic/Lumbar Spine: thoracic and lumbar spine normal to inspection and thoraco-lumbar ROM limited Skin General skin exam: no rashes or lesions noted Neuro General: patient oriented x3 and no focal motor deficits Cranial nerves: Yes CN's II-XII intact bilaterally Extrem General: Yes normal to inspection, Yes no clubbing, cyanosis or edema and Yes no calf tenderness Psych Appearance: grossly normal and well kempt Speech and movement: Normal speech and movement present Results Reviewed Results Reviewed: POLYSOMNOGRAM STUDY ON 06/03/2023 c/w MODERATELY SEVERE OBSTRUCTIVE SLEEP APNEA WITH TOTAL SLEEP TIME AHI 17. THE SLEEP EFFICIENCY AND QUALITY WERE POOR. 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 Code(s): G47.33 - Obstructive sleep apnea (adult) (pediatric) Plan: EXPLAINED TO THE PATIENT AND SHOWED HER THE NUMBERS. PATIENT EDUCATED ABOUT THE USE OF CPAP. WE WILL ORDER A CPAP DEVICE AND PRESSURE SETTING OF 6-20 CM USING FULLFACE MASK. PATIENT UNDERSTANDS WELL. (3) Essential (primary) hypertension: Comment: PATIENT DOES HAVE HYPERTENSION AND USE OF CPAP WOULD MAKE IT EASY TO CONTROL Code(s): I10 - Essential (primary) hypertension Plan: PATIENT BEING FOLLOWED BY PCP AND CARDIOLOGY (4) Persistent atrial fibrillation: Comment: PATIENT BEING TREATED FOR ATRIAL FIBRILLATION, SHE IS ON ANTICOAGULATION Code(s): I48.19 - Other persistent atrial fibrillation Plan: ADVISED TO CONTINUE FOLLOW-UP WITH CARDIOLOGY Coding Level of Care Code New Pt Level 4 (32735) Diagnoses Morbid obesity E66.01 ELENI (obstructive sleep apnea) G47.33 Essential (primary) hypertension I10 Persistent atrial fibrillation I48.19
[2023-08-04 14:25] VITALS: BP 124/82; PULSE 76; O2SAT 96; BMI 53.0
== END 2023-08-04 14:41 | disposition home or self-care (01) ==
PROVIDERS: PCP Family Medicine; Referring Provider Nurse Practitioner; Visit Provider Internal Medicine
DX: G47.33 Obstructive sleep apnea (adult) (pediatric) (principal); E66.01 Morbid (severe) obesity due to excess calories; I10 Essential (primary) hypertension; I48.19 Other persistent atrial fibrillation
CPT/HCPCS: 99214

== ENCOUNTER → 2023-08-04 13:56 | Outpatient (BNVA) | payer MEDICARE, MEDICAID, SELFPAY | PROVIDERS: PCP Family Medicine; Referring Provider Nurse Practitioner; Visit Provider Internal Medicine | DX: G47.33 Obstructive sleep apnea (adult) (pediatric) (principal); I48.19 Other persistent atrial fibrillation; I10 Essential (primary) hypertension; E66.01 Morbid (severe) obesity due to excess calories; Z68.43 Body mass index [BMI] 50.0-59.9, adult | CPT/HCPCS: 99212 ==

== ENCOUNTER 2023-12-28 13:24 | Outpatient (AMB) | payer MEDICARE, MEDICAID, SELFPAY ==
--- NOTE | 2023-12-28 13:33 | A.OFFVIS_ITS ---
Vital Signs 12/28/23 13:34 Height 5 ft Weight 271 lb 2.697 oz BMI 53.0 BP 140/82 H Blood Pressure Location Lt brachial Position Sitting Pulse 68 Pulse Source Pulse Oximeter Pulse Oximetry (%) 98 Oxygen Delivery Method Room Air Intake Visit Reasons: Obstructive sleep apnea Intake Note: pt is here for follow up and a decision needs to be made for compliance to keep cpap. Waste Chopper Required: Yes Allergies No Known Allergies Allergy (Verified 12/28/23 13:37) Medication List - Last Reconciled 12/28/23 by Lloyd Anderson MD allopurinol 100 mg PO apixaban (Eliquis) 5 mg PO BID diltiazem HCl CD (Cartia XT) 120 mg PO QAM metoprolol tartrate 100 mg PO BID rosuvastatin 20 mg PO DAILY sertraline 25 mg PO QAM valsartan 320 mg PO QAM Do you need a note to return to daycare/school/sports/work: No HPI HPI Obstructive sleep apnea: Details: THIS 63 YEARS OLD FEMALE WITH SUPER MORBID OBESITY, IS A CASE OF MODERATELY SEVERE OBSTRUCTIVE SLEEP APNEA ALONG WITH HYPERTENSION AND ATRIAL FIBRILLATION. SHE HAD POLYSOMNOGRAM STUDY IN THE SLEEP LAB ON 06/10/23 AND WAS FOUND TO HAVE SAYS MODERATELY SEVERE OBSTRUCTIVE SLEEP APNEA WITH TOTAL SLEEP TIME AHI 17. CPAP DEVICE WITH AUTO PAP MODE WAS ORDERED, SHE TRIED IN THE BEGINNING BUT AFTER THAT HAS NOT BEEN USING THE CPAP, EXCEPT ON RARE NIGHTS. SO PRACTICALLY SHE HAS BEEN NONCOMPLIANT AND SHE HAS COME TODAY TO DISCUSS THE NEXT STEP. WITHOUT CPAP SHE HAS DIFFICULTY IN SLEEPING, SHE WAKES UP AND REMAINS TIRED DURING THE DAYTIME. SHE DOES SNORE EVERY. SHE DENIES ANY WHEEZING COUGH OR EXPECTORATION. SHE HAS NOT BEEN ABLE TO LOSE ANY WEIGHT AND DID NOT IN ANY ORGANIZED WEIGHT MANAGEMENT PROGRAM. [facility] [place] Medical History (Updated 12/28/23 @ 13:57 by Lloyd Anderson MD) Morbid obesity Persistent atrial fibrillation Hyperlipidemia HTN (hypertension) Surgical History Hx of tubal ligation History of section Family History Father HTN (hypertension) Mother Epilepsia Alzheimer disease Paternal Uncle HTN (hypertension) Sister HTN (hypertension) Social History Household Members: Spouse Housing: House Alcohol intake: former Patient Tobacco Use Status: Former Tobacco user Review of Systems Const All systems reviewed & are unremarkable except as noted in HPI and below Reports snoring Eyes Reports no additional complaints ENT Reports no additional complaints Card Denies chest pain, Denies irregular heart rhythm, Denies leg edema and Denies dyspnea Resp Denies cough, Denies dyspnea, Reports snoring and Denies wheezing GI Reports no additional complaints Reports no additional complaints Musc Reports arthralgias (BOTH KNEES) Skin/Breast Reports system reviewed and no additional complaints, except as documented Neuro Reports no additional complaints Psych Reports depression (BEING TREATED WITH MEDS) Endo Reports no additional complaints Chris/Lymph Reports no additional complaints Aller/Immun Reports no additional complaints and Denies wheezing Physical Exam Vital Signs: Last Vital Signs Pulse 68 12/28/23 13:34 BP 140/82 H 12/28/23 13:34 Pulse Ox 98 12/28/23 13:34 Oxygen Delivery Method Room Air 12/28/23 13:34 BMI result Body Mass Index 53.0 Const General: comfortable, no acute distress, alert and awake Orientation/consciousness: patient oriented x3 HEENT Head: Yes normal to inspection General nose exam: No nasal polyps present and No nasal discharge present Face and sinus: Yes sinuses nontender Mouth: oropharynx abnormals (NARROW AND CROWDED, MALLAMPATI CLASS 4) Teeth and gingiva: other (MILD RETROGANTHIA OF LOWER JAW) Throat: Yes posterior oropharynx normal Eyes General: appearance normal, both eyes and all related structures Neck Neck: Yes normal visual inspection, Yes no lymphadenopathy, Yes trachea midline, Yes no JVD and Yes other (NECK CIRCUMFERENCE 18 IN) Thyroid: Thyroid normal Chest Chest palpation & inspection: normal inspection of the chest, normal palpation of entire chest wall and no tenderness Resp Effort & Inspection: normal respiratory effort Auscultation: clear to auscultation bilaterally, no crackles and no wheezes Cardio Palpation: normal PMI Rate: regular rate Rhythm: regular rhythm Heart sounds: no gallops and no murmurs GI Palpation (GI): Soft to palpation, Tenderness to palpation present (GI), No hepatosplenomegaly present, Palpable mass present and Other GI palpation findings present (ABDOMEN IS MODERATELY OBESE AND PROTUBERANT) Auscultation: normal bowel sounds Back/Spine/Pelvis Thoracic/Lumbar Spine: thoracic and lumbar spine normal to inspection and thoraco-lumbar ROM limited Skin General skin exam: no rashes or lesions noted Neuro General: patient oriented x3 and no focal motor deficits Cranial nerves: Yes CN's II-XII intact bilaterally Extrem General: Yes normal to inspection, Yes no clubbing, cyanosis or edema and Yes no calf tenderness Psych Appearance: grossly normal and well kempt Speech and movement: Normal speech and movement present Results Reviewed Results Reviewed: WE PRINTED THE COMPLIANCE DATA FOR THE LAST 30 NIGHTS AND SHE HAS USED ONLY 5 NIGHTS OUT OF 120 NIGHTS. ON THE NIGHTS THAT SHE USED THE CPAP HER RESIDUAL AHI WAS ONLY 0.5 Assessment & Plan Assessment & Plan (1) Morbid obesity: Comment: BMI= 53 HE HAS NOT BEEN ABLE TO LOSE ANY WEIGHT. Code(s): E66.01 - Morbid (severe) obesity due to excess calories Category: Medical Plan: DISCUSS ABOUT THE WEIGHT, THAT BEING THE MAIN PROBLEM. SHE NEEDS TO JOIN. A WEIGHT MANAGEMENT PROGRAM IN THE MEANTIME SHE SHOULD RESTRICT THE CALORIES INTAKE AND ALSO TRY TO WALK AROUND DURING THE DAYTIME MUCH POSSIBLE. (2) ELENI (obstructive sleep apnea): Comment: PATIENT HAS MODERATELY SEVERE OBSTRUCTIVE SLEEP APNEA CAUSING FRAGMENTED AND POOR SLEEP, WITH DAYTIME SLEEPINESS. HAS BEEN NON COMPLIANT TO THE USE OF CPAP. NO SPECIAL REASON. SHE SAY IS SHE JUST CAN NOT TOLERATE THE CPAP. Code(s): G47.33 - Obstructive sleep apnea (adult) (pediatric) Category: Medical Plan: I HAD A DETAILED DISCUSSION WITH HER THROUGH THE PLATER HELPER, MADE HER FULLY AWARE THAT IT IS RISKY FOR HER HEALTH NOT USE THE CPAP. ALSO TO LOSE WEIGHT SHE SHOULD THINK ABOUT JOINING A WEIGHT MANAGEMENT PROGRAM. BECAUSE SHE HAS BEEN NONCOMPLIANT, SO THE NEXT STEP IS TO ORDER A CPAP TITRATION STUDY IN THE SLEEP LAB. AFTER DISCUSSION SHE HAS AGREED TO UNDERGO THE REPEAT SLEEP STUDY. (3) Essential (primary) hypertension: Comment: PATIENT DOES HAVE HYPERTENSION AND USE OF CPAP WOULD MAKE IT EASY TO CONTROL Code(s): I10 - Essential (primary) hypertension Category: Medical Plan: ABOVE (4) Persistent atrial fibrillation: Comment: PATIENT BEING TREATED FOR ATRIAL FIBRILLATION, SHE IS ON ANTICOAGULATION USE OF CPAP IS IMPORTANT IN HER CASE. Code(s): I48.19 - Other persistent atrial fibrillation Category: Medical Plan: AGAIN FOR HER TO KEEP HER CPAP DEVICE AT HOME, I A.M. GOING TO ORDER A SLEEP LAB BASED CPAP TITRATION STUDY. AND WILL CONTINUE TO MONITOR HER , TO MAKE SURE THAT SHE STARTS USING THE CPAP REGULARLY. Orders: Orders RT PSG in-lab sleep titration Today E66.01 - Morbid (severe) obesity due to excess calories, G47.33 - Obstructive sleep apnea (adult) (pediatric), I10 - Essential (primary) hypertension, I48.19 - Other persistent atrial fibrillation Coding Level of Care Code Est Pt Level 3 (22522) Diagnoses Morbid obesity E66.01 ELENI (obstructive sleep apnea) G47.33 Essential (primary) hypertension I10 Persistent atrial fibrillation I48.19
[2023-12-28 13:34] VITALS: BP 140/82; PULSE 68; O2SAT 98; BMI 53.0
== END 2023-12-28 13:49 | disposition home or self-care (01) ==
PROVIDERS: PCP Family Medicine; Visit Provider Internal Medicine
DX: E66.01 Morbid (severe) obesity due to excess calories (principal); G47.33 Obstructive sleep apnea (adult) (pediatric); I10 Essential (primary) hypertension; I48.19 Other persistent atrial fibrillation
CPT/HCPCS: 99213

== ENCOUNTER → 2023-12-28 13:24 | Outpatient (BNVA) | payer MEDICARE, MEDICAID, SELFPAY | PROVIDERS: PCP Family Medicine; Visit Provider Internal Medicine | DX: G47.33 Obstructive sleep apnea (adult) (pediatric) (principal); E66.01 Morbid (severe) obesity due to excess calories; I10 Essential (primary) hypertension; I48.19 Other persistent atrial fibrillation; Z68.43 Body mass index [BMI] 50.0-59.9, adult | CPT/HCPCS: 99212 ==

== ENCOUNTER 2024-01-07 13:10 | Outpatient (AMB) | payer MEDICARE, MEDICAID, SELFPAY ==
[2024-01-07 13:54] VITALS: BP 140/62; PULSE 61; O2SAT 97; BMI 52.4
--- NOTE | 2024-01-07 13:54 | MHC.OFFVIS ---
Vital Signs 01/07/24 13:54 Height 5 ft Weight 268 lb 1.314 oz BMI 52.4 BP 140/62 H Blood Pressure Location Lt brachial Position Sitting Pulse 61 Pulse Source Pulse Oximeter Pulse Oximetry (%) 97 Intake Visit Reasons: 6 mth f/up Eye Technician Required: Yes Eye Technician Name: [email or web address] Accompanied by: Self / Same As Patient Allergies No Known Allergies Allergy (Verified 12/28/23 13:37) Medication List - Last Reconciled 01/07/24 by Daryn Nair MD allopurinol 100 mg PO apixaban (Eliquis) 5 mg PO BID diltiazem HCl CD (Cartia XT) 120 mg PO QAM metoprolol tartrate 100 mg PO BID rosuvastatin 20 mg PO DAILY sertraline 25 mg PO QAM valsartan 320 mg PO QAM HPI Comments Details: Kavita is here for follow up regarding atrial fibrillation. In the past, a routine EKG had showed atrial fibrillation. She denies any known cardiac issues like coronary artery disease or myocardial infarction. Otherwise, described to have type 2 diabetes, hypertension, chronic kidney disease. Morbid obesity. Nonspecific tiredness but otherwise, no clear-cut cardiac symptoms. No angina, shortness of breath or palpitations. [facility] Medical History (Updated 01/07/24 @ 14:21 by Daryn Nair MD) Morbid obesity Persistent atrial fibrillation Hyperlipidemia HTN (hypertension) Surgical History Hx of tubal ligation History of section Family History Father HTN (hypertension) Mother Epilepsia Alzheimer disease Paternal Uncle HTN (hypertension) Sister HTN (hypertension) Social History Household Members: Spouse Housing: House Alcohol intake: former Patient Tobacco Use Status: Former Tobacco user Review of Systems Const Denies chills, Denies fatigue, Denies fever(s), Denies frequent falls, Denies weakness, Denies weight gain and Denies weight loss ENT Denies dizziness Card Denies chest pain, Denies leg edema, Denies lightheadedness, Denies palpitations, Denies dyspnea and Denies dyspnea on exertion Resp Denies cough, Denies dyspnea and Denies dyspnea on exertion GI Denies hematochezia Musc Denies abnormal gait, Denies muscle weakness, Denies numbness, Denies radiating pain into limb and Denies tingling Neuro Denies abnormal gait, Denies dizziness, Denies frequent falls, Denies numbness, Denies tingling and Denies weakness Endo Denies fatigue and Denies palpitations Physical Exam Vital Signs: Last Vital Signs Pulse 61 01/07/24 13:54 BP 140/62 H 01/07/24 13:54 Pulse Ox 97 01/07/24 13:54 BMI result Body Mass Index 52.4 Const General: comfortable and no acute distress Orientation/consciousness: patient oriented x3 HEENT Other: Unremarkable Head: Yes normal to inspection Neck Neck: Yes normal visual inspection Chest Chest palpation & inspection: normal inspection of the chest Resp Auscultation: clear to auscultation bilaterally Cardio Palpation: normal PMI Heart sounds: S1 normal heart sound present, S2 normal heart sound present, no gallops, no murmurs and no rubs GI Palpation (GI): Soft to palpation Back/Spine/Pelvis Other: unremarkable Skin General skin exam: no rashes or lesions noted Neuro General: patient oriented x3 Extrem General: Yes normal to inspection Psych Mental Status: mental status grossly normal Assessment & Plan Assessment & Plan (1) Persistent atrial fibrillation: Code(s): I48.19 - Other persistent atrial fibrillation Category: Medical Plan: With obesity and poorly treated sleep apnea, unlikely she would be a candidate for rhythm control. Continue rate control meds. Continue anticoagulation. Recheck Holter before next visit. (2) Essential (primary) hypertension: Code(s): I10 - Essential (primary) hypertension Category: Medical Plan: Borderline high blood pressures. Stable. (3) ELENI (obstructive sleep apnea): Code(s): G47.33 - Obstructive sleep apnea (adult) (pediatric) Category: Medical Plan: Noncompliant with CPAP. She already goes to pulmonary. Because of this, will be difficult to manage atrial fibrillation. Most likely, just rate control only. Orders: Orders ECG 3 day holter monitor 6 Months I48.19 - Other persistent atrial fibrillation CA echo transthoracic complete 6 Months I48.19 - Other persistent atrial fibrillation Coding Level of Care Code Est Pt Level 4 (57041) Diagnoses Persistent atrial fibrillation I48.19 Essential (primary) hypertension I10 ELENI (obstructive sleep apnea) G47.33
== END 2024-01-07 14:10 | disposition home or self-care (01) ==
PROVIDERS: PCP Family Medicine; Visit Provider Internal Medicine
DX: I48.19 Other persistent atrial fibrillation (principal); I10 Essential (primary) hypertension; G47.33 Obstructive sleep apnea (adult) (pediatric)
CPT/HCPCS: 99214

== ENCOUNTER → 2024-01-07 13:10 | Outpatient (BNVA) | payer MEDICARE, MEDICAID, SELFPAY | PROVIDERS: PCP Family Medicine; Visit Provider Internal Medicine | DX: I48.19 Other persistent atrial fibrillation (principal); I10 Essential (primary) hypertension; G47.33 Obstructive sleep apnea (adult) (pediatric) | CPT/HCPCS: 99212 ==

== ENCOUNTER → 2024-02-28 19:30 | Outpatient (REF) | payer MEDICARE, MEDICAID, SELFPAY | LOC: HO.SL 19:30 | PROVIDERS: PCP Family Medicine; Visit Provider Internal Medicine | DX: G47.33 Obstructive sleep apnea (adult) (pediatric) (principal); E66.01 Morbid (severe) obesity due to excess calories | CPT/HCPCS: 95811 ==

== ENCOUNTER → 2024-02-28 20:55 | Outpatient (BNV) | payer MEDICARE, MEDICAID, SELFPAY | PROVIDERS: PCP Family Medicine; Visit Provider Psychiatry & Neurology Neurology | DX: G47.33 Obstructive sleep apnea (adult) (pediatric) (principal) | CPT/HCPCS: 95811 ==

== ENCOUNTER 2024-03-02 13:16 | Outpatient (AMB) | payer MEDICARE, MEDICAID, SELFPAY ==
[2024-03-02 13:51] VITALS: BP 110/82; PULSE 55; O2SAT 96; BMI 52.7
--- NOTE | 2024-03-02 13:51 | A.OFFVIS_ITS ---
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 SHE HAS SYMPTOMS OF LOUD SNORING AT NIGHT AND FREQUENT AWAKENINGS, . WITH DAYTIME SLEEPINESS THIS PATIENT HAD BEEN STARTED ON CPAP THERAPY AFTER A HOME-BASED SLEEP STUDY, BUT AFTER A WHILE SHE WAS NONCOMPLIANT. HENCE SHE COULD NOT GET SUPPLIES FOR HER CPAP. NOW SHE UNDERWENT CPAP TITRATION STUDY IN THE SLEEP LAB, AND COMES HERE FOR FOLLOW-UP. TITRATION WAS SUCCESSFUL WITH PRESSURE OF 11 CM. [facility] Medical History Morbid obesity Persistent atrial fibrillation Hyperlipidemia HTN (hypertension) Surgical History Hx of tubal ligation History of section Family History Father HTN (hypertension) Mother Epilepsia Alzheimer disease Paternal Uncle HTN (hypertension) Sister HTN (hypertension) Social History Household Members: Spouse Housing: House Alcohol intake: former Patient Tobacco Use Status: Former Tobacco user Review of Systems Const All systems reviewed & are unremarkable except as noted in HPI and below Reports snoring Eyes Reports no additional complaints ENT Reports no additional complaints Card Denies chest pain, Denies irregular heart rhythm, Denies leg edema and Denies dyspnea Resp Denies cough, Denies dyspnea, Reports snoring and Denies wheezing GI Reports no additional complaints Reports no additional complaints Musc Reports arthralgias (BOTH KNEES) Skin/Breast Reports system reviewed and no additional complaints, except as documented Neuro Reports no additional complaints Psych Reports depression (BEING TREATED WITH MEDS) Endo Reports no additional complaints Chris/Lymph Reports no additional complaints Aller/Immun Reports no additional complaints and Denies wheezing Physical Exam Vital Signs: Last Vital Signs Pulse 55 03/02/24 13:51 BP 110/82 03/02/24 13:51 Pulse Ox 96 03/02/24 13:51 Oxygen Delivery Method Room Air 03/02/24 13:51 BMI result Body Mass Index 52.7 Const General: comfortable, no acute distress, alert and awake Orientation/consciousness: patient oriented x3 HEENT Head: Yes normal to inspection General nose exam: No nasal polyps present and No nasal discharge present Face and sinus: Yes sinuses nontender Mouth: oropharynx abnormals (NARROW AND CROWDED, MALLAMPATI CLASS 4) Teeth and gingiva: other (MILD RETROGANTHIA OF LOWER JAW) Throat: Yes posterior oropharynx normal Eyes General: appearance normal, both eyes and all related structures Neck Neck: Yes normal visual inspection, Yes no lymphadenopathy, Yes trachea midline, Yes no JVD and Yes other (NECK CIRCUMFERENCE 18 IN) Thyroid: Thyroid normal Chest Chest palpation & inspection: normal inspection of the chest, normal palpation of entire chest wall and no tenderness Resp Effort & Inspection: normal respiratory effort Auscultation: clear to auscultation bilaterally, no crackles and no wheezes Cardio Palpation: normal PMI Rate: regular rate Rhythm: regular rhythm Heart sounds: no gallops and no murmurs GI Palpation (GI): Soft to palpation, Tenderness to palpation present (GI), No hepatosplenomegaly present, Palpable mass present and Other GI palpation findings present (ABDOMEN IS MODERATELY OBESE AND PROTUBERANT) Auscultation: normal bowel sounds Back/Spine/Pelvis Thoracic/Lumbar Spine: thoracic and lumbar spine normal to inspection and thoraco-lumbar ROM limited Skin General skin exam: no rashes or lesions noted Neuro General: patient oriented x3 and no focal motor deficits Cranial nerves: Yes CN's II-XII intact bilaterally Extrem General: Yes normal to inspection, Yes no clubbing, cyanosis or edema and Yes no calf tenderness Psych Appearance: grossly normal and well kempt Speech and movement: Normal speech and movement present Results Reviewed Results Reviewed: RESULTS OF CPAP TITRATION STUDY REVIEWED. SHE DID VERY WELL AND ALL THE OBSTRUCTIVE EVENTS WERE ELIMINATED WITH PRESSURE OF 11 CM. A FULLFACE MASK OF MEDIUM SIZE WAS USED IN THE SLEEP LAB. Assessment & Plan Assessment & Plan (1) Morbid obesity: Comment: BMI= 52.7 HE HAS NOT BEEN ABLE TO LOSE ANY WEIGHT. Code(s): E66.01 - Morbid (severe) obesity due to excess calories Category: Medical Plan: PATIENT ENCOURAGED TO MAKE APPOINTMENT WITH THE WEIGHT MANAGEMENT . OR WITH THE DIETITIAN (2) ELENI (obstructive sleep apnea): Comment: PATIENT DOES HAVE HISTORY OF OBSTRUCTIVE SLEEP APNEA AND INITIALLY DID WELL WITH USE OF CPAP. THEN SHE WAS NONCOMPLIANT, AND COULD NOT GET THE SUPPLIES. TO QUALIFY HER FOR THE SUPPLIES SHE HAD TO UNDERGO CPAP TITRATION IN THE SLEEP LAB. THE CPAP TITRATION WAS SUCCESSFUL AND, OPTIMAL RESULTS OBTAINED WITH PRESSURE OF 11 CM Code(s): G47.33 - Obstructive sleep apnea (adult) (pediatric) Category: Medical Plan: EXPLAINED THE RESULTS. TO THE PATIENT SHE UNDERSTANDS VERY WELL ALSO EXPLAINED THAT SHE HAS TO BE COMPLIANT, BY USING EVERY NIGHT FOR AT LEAST 4-5 HOURS. ORDER FOR SUPPLIES IS BEING SENT TO HER DME PROVIDER. Medications: Discontinued diltiazem HCl CD (Cartia XT) Discontinued Reason: Patient Completed Course 120 mg PO QAM 90 caps 3RF Coding Level of Care Code Est Pt Level 3 (87000) Diagnoses Morbid obesity E66.01 ELENI (obstructive sleep apnea) G47.33
== END 2024-03-02 14:10 | disposition home or self-care (01) ==
PROVIDERS: PCP Family Medicine; Visit Provider Internal Medicine
DX: E66.01 Morbid (severe) obesity due to excess calories (principal); G47.33 Obstructive sleep apnea (adult) (pediatric)
CPT/HCPCS: 99213

== ENCOUNTER → 2024-03-02 13:16 | Outpatient (BNVA) | payer MEDICARE, MEDICAID, SELFPAY | PROVIDERS: PCP Family Medicine; Visit Provider Internal Medicine | DX: G47.33 Obstructive sleep apnea (adult) (pediatric) (principal); E66.01 Morbid (severe) obesity due to excess calories; Z68.43 Body mass index [BMI] 50.0-59.9, adult | CPT/HCPCS: 99212 ==

== ENCOUNTER 2024-06-24 15:12 | Outpatient (REF) | payer MEDICARE, MEDICAID, SELFPAY | END 2024-06-24 15:13 | disposition home or self-care (01) | LOC: HO.HHCL 15:12 | PROVIDERS: Visit Provider Family Medicine | DX: I10 Essential (primary) hypertension (principal) | CPT/HCPCS: 36415 ==

== ENCOUNTER 2024-08-04 12:54 | Outpatient (REF) | payer MEDICARE, MEDICAID, SELFPAY | END 2024-08-04 12:55 | disposition home or self-care (01) | LOC: HO.MAMMO 12:54 | PROVIDERS: PCP Family Medicine; Visit Provider Family Medicine | DX: Z12.31 Encounter for screening mammogram for malignant neoplasm of breast (principal) | CPT/HCPCS: 77063; 77067 ==

== ENCOUNTER → 2024-08-04 13:45 | Outpatient (BNV) | payer MEDICARE, MEDICAID, SELFPAY | PROVIDERS: PCP Family Medicine; Visit Provider Internal Medicine | DX: Z12.31 Encounter for screening mammogram for malignant neoplasm of breast (principal) | CPT/HCPCS: 77063; 77067 ==

== ENCOUNTER → 2025-01-30 12:34 | Outpatient (REF) | payer MEDICARE, MEDICAID, SELFPAY ==
--- NOTE | 2025-01-30 12:38 | CA_ITS ---
Transthoracic Echocardiogram Amended Patient (Last, First, Middle): Kavita Gil M Gender: Female Date of : 1960 Age: 64 Procedure Date: 01/30/2025 Procedure Type: Transthoracic Echocardiogram Location: OP Height: 152.4 cm Weight: 122.47 kg BSA: 2.12 m2 Heart Rate: 71 bpm BP: 116 / 74 mmHg Harnessmaker: ANGELITA Referring MD: Magdy Galo TANK CLEANING SUPERVISOR Business Development Officer: Harshal Hagan MD Symptoms: I48.19 - Other persistent atrial fibrillation Study Quality: Adequate w contrast ECG Rhythm: Atrial Fibrillation Conclusions: - 1. Hyperdynamic LV ejection fraction greater than 70% 2. Cardiac valvular Dopplers within normal limits 3. Mildly dilated ascending aorta at 4.2 cm 4. No gross pericardial effusion Findings Procedure Information Contrast agent, definity, is being given per protocol without apparent complications. Left Ventricle Normal left ventricular cavity size. There is normal left ventricular wall thickness. The left ventricular systolic function is hyperdynamic. The visually estimated ejection fraction is >70%. Diastolic function is indeterminate on the basis of available data. Right Ventricle Normal right ventricular cavity size and systolic function. Atria The left atrium was not well visualized. Interatrial shunt cannot be excluded. The right atrium was not well visualized. Aortic Valve The aortic valve was not well visualized. There is no aortic valve stenosis. There is no aortic valve regurgitation. Mitral Valve Normal mitral valve structure and function. There is no mitral valve regurgitation. There is no mitral valve stenosis. Pulmonic Valve The pulmonic valve was not well visualized. Tricuspid Valve The tricuspid valve was not well visualized. Tricuspid regurgitation envelope is inadequate for calculation of right ventricular systolic pressure. Mildly elevated right atrial pressure. Great Vessels The pulmonary artery was not well visualized. There is mild dilatation of the ascending aorta measuring 4.20 cm. Small plaque is seen in the sino tubular ridge. Venous The inferior vena cava is mildly dilated and collapses less than 50% with inspiration. Pericardium/Pleural There is no evidence of pericardial effusion. Prior Study Comparison No significant change compared to prior study dated: 05/16/2022. Measurements 2D Linear Measurements IVSd: 0.82 0.6-0.9/0.6-1.0 cm LVIDd: 3.76 3.9-5.3/4.2-5.9 cm LVIDd Index: 1.77 2.4-3.2/2.2-3.1 cm/m2 LVIDs: 2.85 2.0-3.6 cm LVPWd: 0.98 0.7-1.1 cm LA Diam: 4.40 2.7-3.8/3.0-4.0 cm LAIDs Index: 2.08 1.5-2.3 cm/m2 LV Mass: 124.05 67-162/88-224 g LV Mass Index: 58.51 43-95/49-115 g/m2 LVOT Diam: 2.20 3.0+(-)1.3 cm 2D Volumes LA Vol: 34.10 2D Systolic Function EF 4C: 71.00 >55% EF 2C: 71.20 >55% EF BiP: 71.60 >55% Mitral Valve MV Pk E: 1.00 E'Lateral: 9.94 E'Medial: 6.59 E/E' Med: 15.20 E/E' Lat: 10.10 Aortic Valve AoV Pk Rohit: 1.09 AoV Pk Grad: 5.00 ELIZ: 3.52 LVOT LVOT Pk Rohit: 1.01 LVOT Mn Rohit: 0.66 LVOT VTI: 0.21 LVOT Pk Grad: 4.00 LVOT Mn Grad: 2.00 LVOT Diam: 2.20 LVOT Area: 3.80 Diastolic Function MV Pk E: 1.00 E'Medial: 6.59 E/E' Med: 15.20 E' Laterial: 9.94 E/E' Lat: 10.10 Right Ventricle TAPSE (mm): 22.50 TVS' Rohit: 11.40 Great Vessels Aorta Sinus of Valsalva: 3.20 2.0-3.5 cm Ao Asc: 4.20 2.1-3.4 cm Ao Arch: 3.10 Ao Desc: 2.10 Pulmonary Valve PV Pk Rohit: 0.66 Peak PV Grad: 2.00 Updated in Other Vendor System with Status of Final Harshal Hagan MD electronically signed on 01/31/2025 5:25:58 PM with status of Final
--- OUTSIDE RECORDS SUMMARY | 2025-01-30 14:11 | XMS_ITS | Encounter Summary ---
Author Organization [employer] Address [address] [address] Care Team Providers Care Advanced Practice Provider Name Role Phone Nilda Chew MD Primary Care Provider +- [phone] Zayra Cooley PharmD Unavailable Reason for Visit * Reason Onset Date Comments Referral 01/12/2023 Encounter Details Date Type Department Care Team (Late st Contact Info) Description 01/12/2023 Telephone [facility] MEDICINE [address] [place], [place] [phone] Nilda Chew MD [address] [place], [place] [phone] Referral Social History Tobacco Use Types Packs/Day Years Used Date Smoking Tobacco: Never Smokeless Tobacco: Never Depression Answer Date Recorded Patient Health Questionnaire-9 Score 5 10/30/2022 Depression Answer Date Recorded Patient Health Questionnaire-2 Score 2 10/30/2022 Comments Unknown Sex and Gender Information Value Date Recorded Sex Assigned at Female 06/23/2022 10:14 AM EDT Legal Sex Female 10:14 AM EDT Gender Identity Female 06/23/2022 10:14 AM EDT Sexual Orientation Straight 06/23/2022 10 :14 AM EDT COVID-19 Exposure Response Date Recorded In the last 10 days, have yo u been in contact with someone who was confirmed or suspected to have Coronavirus/COVID-19? No / Unsure 12/29/2022 1:56 PM EDT documented as of this encounter Miscellaneous Notes * Telephone Encounter - Francisco Aleman - 01/12/2023 11:14 AM EDT Tc from pt requesting a [facility]. Please contact pt at [phone] documented in this encounter Plan of Treatment Upcoming Encounters Date Type Department Care Team (Late st Contact Info) Description 03/08/2025 2:00 PM EDT Office Visit [facility] [address] [place] [address] Nilda Chew MD [address] [place] [address] 05/16/2025 1:00 PM EDT Office Visit [facility] OPTOMETRY [address] [place] [address] Milton, Shellie, OD [address] [place] [address] documented as of this encounter Goals Goal Patient Goal Type Associated Problems Recent Progress Patient-Stated? Author Blood Pressure < 140/90 Blood Pressure 128/80( 025 1:30 PM EDT) No Zayra Schneider PharmD documented as of this encounter Visit Diagnoses Diagnosis Routine adult health maintenance documented in this encounter Additional Health Concerns Assessment Noted Time PHQ-9 Depression Total Score: 5 10/31/19 23 2:24 PM EST documented as of this encounter Care Teams Advanced Practice Provider Relationship Specialty Start Date End Date Nilda Chew MD [address] [place] [address] PCP - General Family Medicine 08/06/12 Zayra Cooley PharmD [address] [place] [id number] Pharmacist Internal Medicine 11/20/22 11/18/24 documented as of this encounter
== END ==
LOC: HO.CARD 12:34
PROVIDERS: PCP Family Medicine; Visit Provider Internal Medicine
DX: I48.19 Other persistent atrial fibrillation (principal)
CPT/HCPCS: 93242; 93306; Q9957

== ENCOUNTER → 2025-01-30 12:38 | Outpatient (BNV) | payer MEDICARE, MEDICAID, SELFPAY | PROVIDERS: PCP Family Medicine; Visit Provider Internal Medicine Cardiovascular Disease | DX: I77.810 Thoracic aortic ectasia (principal); I48.19 Other persistent atrial fibrillation; I70.0 Atherosclerosis of aorta | CPT/HCPCS: 93306 ==

== ENCOUNTER 2025-02-21 08:26 | Outpatient (AMB) | payer MEDICARE, MEDICAID, SELFPAY ==
--- OUTSIDE RECORDS SUMMARY | 2025-02-21 08:31 | XMS_ITS | Clinical Summary ---
Author Organization [employer] [facility] Address [address] [place] [address] Care Team Providers Care Debt Management Counselor Name Role Phone Unavailable Primary Care Provider Unavailabl e Social History Tobacco Use Types Packs/Day Years Used Date Smoking Tobacco: Never Assessed Comments Unknown Sex and Gender Information Value Date Recorded Sex Assigned at Not on file Legal Sex Female 6:34 AM EST Gender Identity Not on file Sexual Orientation Not on file Plan of Treatment Health Maintenance Due Date Last Done Comments Breast Cancer Screening 1960 DTaP,Tdap,and Td Vaccines (1 - Tdap) 1977 Pneumococcal Vaccine: 50+ Ye ars (1 of 1 - PCV) 2008 Zoster Vaccines (1 of 2) 2008 Colorectal Cancer Screening: Colonoscopy 09/22/2023 Depression Screening 09/22/2023 Falls Risk Assessment 09/22/2023 Hepatitis C Screening 09/22/2023 Osteoporosis Screening (Bone Density Screening) 09/22/2023 Social Influencers of Health Screening 09/22/2023 COVID-19 Vaccine ( - 2023-2 5 season) 2024 Influenza Vaccine (Season Ended) 2025 RSV Immunization Adult Patie nts (1 - 1-dose 75+ series) 2033 HIB Vaccines Aged Out No longer eligi ble based on patient's age to complete this topic HPV Vaccines Aged Out No longer eligi ble based on patient's age to complete this topic Hepatitis A Vaccines Aged Out No long er eligible based on patient's age to complete this topic Hepatitis B Vaccines Aged Out No long er eligible based on patient's age to complete this topic IPV Vaccines Aged Out No longer eligi ble based on patient's age to complete this topic MMR Vaccines Aged Out No longer eligi ble based on patient's age to complete this topic Meningococcal ACWY Vaccine Aged Out N o longer eligible based on patient's age to complete this topic Meningococcal B Vaccine Aged Out No l onger eligible based on patient's age to complete this topic RSV Immunization Patients Un osman 20 months Aged Out No longer eligible b ased on patient's age to complete this topic Varicella Vaccines Aged Out No longer eligible based on patient's age to complete this topic
--- OUTSIDE RECORDS SUMMARY | 2025-02-21 08:31 | XMS_ITS | Encounter Summary ---
Author Organization [employer] Address [address] [facility] [address], [place] [address] Care Team Providers Care Communications Marketing Intern Name Role Phone Nilda Chew MD Primary Care Provider +- [phone] Zayra Cooley PharmD Unavailable Reason for Visit * Reason Onset Date Comments Referral 01/12/2023 Encounter Details Date Type Department Care Team (Late st Contact Info) Description 01/12/2023 Telephone [facility] MEDICINE [address] [place], [place] [phone] Nilda Chew MD [address] [place], [place] [phone] Referral Social History Tobacco Use Types Packs/Day [...] [facility]. Please contact pt at [phone] documented in this encounter Plan of Treatment Upcoming Encounters Date Type Department Care Team (Late st Contact Info) Description 03/08/2025 2:00 PM EDT Office Visit [facility] MEDICINE [address] [place] [address] Nilda Chew MD [address] [place] [address] 05/16/2025 1:00 PM EDT Office Visit [facility] OPTOMETRY [address] [place] [address] Milton, Shellie, OD [address] [place] [address] documented as of this encounter Goals Goal [...] documented as of this encounter Care Teams Communications Marketing Intern Relationship Specialty Start Date End Date Nilda Chew MD [address] [place] [address] PCP - General Family Medicine 08/06/12 Zayra Cooley PharmD [address] [place] [address] Pharmacist Internal Medicine 11/20/22 11/18/24 documented as of this encounter
--- NOTE | 2025-02-21 08:43 | MHC.OFFVIS ---
Vital Signs 02/21/25 08:46 Height 5 ft Weight 267 lb 3.204 oz BMI 52.2 BP 120/72 Blood Pressure Location Lt brachial Position Sitting Pulse 68 Pulse Source Monitor Intake Visit Reasons: follow up echo holter Secure Software Assessor Required: Yes Secure Software Assessor Language: Compressor Station Engineer Chief Name: rich/ann marie/[id number] Accompanied by: Self / Same As Patient Allergies No Known Allergies Allergy (Verified 03/02/24 16:14) Medication List - Last Reconciled 02/21/25 by Daryn Nair MD allopurinol 100 mg PO apixaban (Eliquis) 5 mg PO BID diltiazem HCl 60 mg PO BID metoprolol tartrate 100 mg PO BID rosuvastatin 20 mg PO DAILY sertraline 25 mg PO QAM valsartan 320 mg PO QAM HPI Comments Details: Kavita is here for follow up regarding atrial fibrillation. In the past, a routine EKG had showed atrial fibrillation. No known issues like coronary artery disease or myocardial infarction. Has many comorbidities including obesity, hypertension, dyslipidemia, obstructive sleep apnea. Overall, she states she feels well. No clear-cut complaints like chest pains or shortness of breath or palpitations extra. Noncompliant with CPAP. [facility] Medical History Morbid obesity Persistent atrial fibrillation Hyperlipidemia HTN (hypertension) Surgical History Hx of tubal ligation History of section Family History Father HTN (hypertension) Mother Epilepsia Alzheimer disease Paternal Uncle HTN (hypertension) Sister HTN (hypertension) Social History Household Members: Spouse Housing: House Alcohol intake: former Patient Tobacco Use Status: Former Tobacco user Review of Systems Const Denies chills, Denies fatigue, Denies fever(s), Denies frequent falls, Denies weakness, Denies weight gain and Denies weight loss ENT Denies dizziness Card Denies chest pain, Denies leg edema, Denies lightheadedness, Denies palpitations, Denies dyspnea and Denies dyspnea on exertion Resp Denies cough, Denies dyspnea and Denies dyspnea on exertion GI Denies hematochezia Musc Denies abnormal gait, Denies muscle weakness, Denies numbness, Denies radiating pain into limb and Denies tingling Neuro Denies abnormal gait, Denies dizziness, Denies frequent falls, Denies numbness, Denies tingling and Denies weakness Endo Denies fatigue and Denies palpitations Physical Exam Vital Signs: Last Vital Signs Pulse 68 02/21/25 08:46 BP 120/72 02/21/25 08:46 BMI result Body Mass Index 52.2 Const General: comfortable and no acute distress Orientation/consciousness: patient oriented x3 HEENT Other: Unremarkable Head: Yes normal to inspection Neck Neck: Yes normal visual inspection Chest Chest palpation & inspection: normal inspection of the chest Resp Auscultation: clear to auscultation bilaterally Cardio Palpation: normal PMI Heart sounds: S1 normal heart sound present, S2 normal heart sound present, no gallops, no murmurs and no rubs GI Palpation (GI): Soft to palpation Back/Spine/Pelvis Other: unremarkable Skin General skin exam: no rashes or lesions noted Neuro General: patient oriented x3 Extrem General: Yes normal to inspection Psych Mental Status: mental status grossly normal Office Procedures EKG Details: EKG with atrial fibrillation at a rate of 68/Min. [id number], Complete Assessment & Plan Assessment & Plan (1) Persistent atrial fibrillation: Code(s): I48.19 - Other persistent atrial fibrillation Category: Medical Plan: Because of obesity, noncompliance with CPAP, treated by rate control only. Clinically, she has got no symptoms. Continue diltiazem/metoprolol. Continue anticoagulation. There is no recent lab work in our system. We will need to contact PCP. If none, then needs CBC/BMP. Discussed about this today. Echocardiogram-LVEF > 70%. No significant valvular issues. Holter-well controlled atrial fibrillation with an average rate of 67/Min. (2) Essential (primary) hypertension: Code(s): I10 - Essential (primary) hypertension Category: Medical Plan: Stable. No changes. (3) Ascending aorta dilatation: Code(s): I77.810 - Thoracic aortic ectasia Category: Medical Plan: Ascending aortic size 4.2 cm. Can be monitored on echocardiogram. (4) ELENI (obstructive sleep apnea): Code(s): G47.33 - Obstructive sleep apnea (adult) (pediatric) Category: Medical Plan: Intermittent news. Advised to use it regularly. Plan Discussion Notes I discussed with the patient the importance of regular blood work to monitor her condition, especially due to her use of blood thinners. We talked about the necessity of using the CPAP mask daily to prevent complications related to sleep apnea and its impact on heart health. I advised her to contact us if she experiences any symptoms such as chest pain or breathing difficulties. Patient was informed and verbally consented to the use of an ambient scribe for clinic note documentation during this visit. Patient Instructions: - Use the CPAP mask daily to help with sleep apnea and heart health. - Contact the clinic if you experience chest pain or breathing difficulties. - Follow up in one year or sooner if needed. - We will contact your PCP for recent labs. If none, then you will need lab work. Coding Level of Care Code Est Pt Level 4 (50556) Complex EM visit Add On G2211 Diagnoses Persistent atrial fibrillation I48.19 Essential (primary) hypertension I10 Ascending aorta dilatation I77.810 ELENI (obstructive sleep apnea) G47.33 CPT Codes EKG - CPT: 10606-[id number], Complete ([id number])
[2025-02-21 08:46] VITALS: BP 120/72; PULSE 68; BMI 52.2
== END 2025-02-21 09:05 | disposition home or self-care (01) ==
LOC: HO.HCS 08:27
PROVIDERS: PCP Family Medicine; Visit Provider Internal Medicine
DX: I48.19 Other persistent atrial fibrillation (principal); I10 Essential (primary) hypertension; I77.810 Thoracic aortic ectasia; G47.33 Obstructive sleep apnea (adult) (pediatric)
CPT/HCPCS: 93010; 99214; G2211

== ENCOUNTER → 2025-02-21 08:26 | Outpatient (BNVA) | payer MEDICARE, MEDICAID, SELFPAY | PROVIDERS: PCP Family Medicine; Visit Provider Internal Medicine | DX: I48.19 Other persistent atrial fibrillation (principal); I10 Essential (primary) hypertension; I77.810 Thoracic aortic ectasia; G47.33 Obstructive sleep apnea (adult) (pediatric); Z99.89 Dependence on other enabling machines and devices; Z79.01 Long term (current) use of anticoagulants | CPT/HCPCS: 93005; 99212 ==

== ENCOUNTER 2025-06-26 09:04 | Outpatient (REF) | payer MEDICARE, MEDICAID, SELFPAY ==
--- OUTSIDE RECORDS SUMMARY | 2025-06-26 09:45 | XMS_ITS | Encounter Summary ---
Author Organization [employer] Address [address] [facility] 7 [place] [address] Care Team Providers Care Bottle Dealer Name Role Phone Nilda Chew MD Primary Care Provider [phone]- [phone] Daryn Nair MD Unavailable [phone] Encounter Details Date Type Department Care Team (Late st Contact Info) Description 06/26/2025 9:45 AM EST Office Visit [facility] MEDICINE [address] [place], [place] [phone] Nilda Chew MD [address] [place], [place] [phone] Arrived Social History Tobacco Use Types Packs/Day Years Used Date Smoking Tobacco: Former Cigarettes Passive Smoke Exposure: Never Smokeless Tobacco: Never Depression Answer Date Recorded Patient Health Questionnaire-9 Score 0 01/26/2025 Patient Health Questionnaire-9 Score 0 01/26/2025 Last PHQ-9: Questionnaire Data Not on file 0 01/26/2025 Housing Stability Answer Date Recorded What is your housing situation today? I have ernie zambrano 01/26/[address] you li ve. Do you have problems with any of the following? None of the above 01/26/2025 Food Insecurity Answer Date Recorded Within the past 12 months, y ou worried that your food would run out before you got money to buy more: Never True 01/26/2025 Within the past 12 months,th e food you bought just didn't last and you didn't have enough money to get more: Never True 12/2024 Transportation Answer Date Recorded In the past 12 months, has l ack of transportation kept you from medical appts, meetings, work or from getting things needed for daily living? No 01/26/2025 Utilities Answer Date Recorded In the past 12 months, has t he electric, gas, oil or water company threatened to shut off services in your home? No 01/26/2025 Depression Answer Date Recorded Patient Health Questionnaire-2 Score 0 01/26/2025 Internet Access Answer Date Recorded Internet Access Q1 Yes 08/19/2024 Internet Access Q2 Not on file 08/19/2024 Comments No Sex and Gender Information Value Date Recorded Sex Assigned at Female 06/23/2022 10:14 AM EDT Legal Sex Female 10:14 AM EDT Gender Identity Female 06/23/2022 10:14 AM EDT Sexual Orientation Straight 06/23/2022 10 :14 AM EDT documented as of this encounter Last Filed Vital Signs Vital Sign Reading Time Taken Comments Blood Pressure 146/90 06/26/2025 9:27 AM EST Pulse 99 06/26/2025 9:27 AM EST Temperature 35.4 C (95.7 F) 06/26/2025 9:27 AM EST Respiratory Rate 16 06/26/2025 9:27 AM EST Oxygen Saturation - - Inhaled Oxygen Concentration - - Weight 123 kg (271 lb 1.6 oz) 06/26/2025 9:27 AM EST Height 152.4 cm (5') 06/26/2025 9:27 AM EST Body Mass Index 52.95 06/26/2025 9:27 AM EST documented in this encounter Plan of Treatment Upcoming Encounters Date Type Department Care Team (Late st Contact Info) Description 10/25/2025 11:00 AM EST Office Visit [facility] OPTOMETRY [address] [place], [place] [phone] Shellie Rose, OD [address] [place] [address] documented as of this encounter Goals Goal Patient Goal Type Associated Problems Recent Progress Patient-Stated? Author Blood Pressure < 140/90 Blood Pressure 146/90( 025 9:27 AM EST) No Zayra Schneider PharmD Record your blood pressure once per day Blood Pressure No Zayra Schneider PharmD documented as of this encounter Visit Diagnoses Not on filedocumented in this encounter Additional Health Concerns Assessment Noted Time PHQ-9 Depression Total Score: 0 01/27/20 25 1:31 PM EDT documented as of this encounter Care Teams Bottle Dealer Relationship Specialty Start Date End Date Nilda Chew MD [address] [place] [address] PCP - General Family Medicine 08/06/12 Daryn Nair MD [address] [place] [address] 3rd [place] [address] Cardiology 02/23/25 documented as of this encounter
--- OUTSIDE RECORDS SUMMARY | 2025-06-26 10:02 | XMS_ITS | Encounter Summary ---
Author Organization [employer] Address [address] [facility] 7 [place] [address] Care Team Providers Care Business Instructor Name Role Phone Nilda Chew MD Primary Care Provider [phone] Daryn Nair MD Unavailable Reason for Visit * Reason Onset Date Comments blood work before the appt 06/23/2025 Encounter Details Date Type Department Care Team (Late st Contact Info) Description 06/23/2025 Telephone [facility] MEDICINE [address] [place] [address] Nilda Chew MD [address] [place], [place] [phone] blood work before the appt Social History Tobacco Use Types Packs/Day Years [...] AM EDT documented as of this encounter Miscellaneous Notes * Telephone Encounter - Isela Ellis MA - 06/23/2025 1:41 PM EDT I spoke with the pt to do blood work before the appointment 06/26/2025. documented in this encounter Plan of Treatment Upcoming Encounters Date Type Department Care Team (Late st Contact Info) Description 10/25/2025 11:00 AM EST Office Visit [facility] OPTOMETRY [address] [place] [address] Shellie Rose, OD [address] [place] [address] documented as of this encounter Goals Goal Patient Goal Type Associated Problems Recent Progress Patient-Stated? Author Blood Pressure < 140/90 Blood Pressure 146/90( 025 9:27 AM EST) No Piers-Gambl e, Zayra, PharmD Record your blood pressure once per day Blood Pressure No Piers-Gambl e, Zayra, PharmD documented as of this encounter Visit Diagnoses Not on filedocumented in this encounter Additional Health Concerns Assessment Noted Time PHQ-9 Depression Total Score: 0 01/27/20 25 1:31 PM EDT documented as of this encounter Care Teams Business Instructor Relationship Specialty Start Date End Date Nilda Chew MD [address] [place] [id number] PCP - General Family Medicine 08/06/12 Daryn Nair MD [address] [place] [address] 3rd [place] [address] Cardiology 02/23/25 documented as of this encounter
--- OUTSIDE RECORDS SUMMARY | 2025-06-26 10:02 | XMS_ITS | Encounter Summary ---
Author Organization [employer] Address [address] [facility] 7t [place] [address] Care Team Providers Care Inspector Casing Name Role Phone Nilda Chew MD Primary Care Provider +1- [phone] Daryn Nair MD Unavailable [phone] Encounter Details Date Type Department Care Team (Late st Contact Info) Description 06/22/2025 Telephone [facility] [address] [place], [place] [phone] Nilda Chew MD [address] [place], [place] [phone] Social History Tobacco Use Types Packs/Day Years [...] encounter Miscellaneous Notes * Telephone Encounter - Nilda Chew MD - 06/22/2025 2:57 PM EDT Please remind pt we ordered fasting labs she can get them done at [facility] if she canonly go on Saturdays. Or can come to [facility] if can come tomorrow. Thank you. documented in this encounter Plan of Treatment Upcoming Encounters Date Type Department Care Team (Late st Contact Info) Description 10/25/2025 11:00 AM EST Office Visit [facility] OPTOMETRY [address] [place] [address] Shellie Rose, OD [address] [place] [address] documented as of this encounter Goals Goal Patient Goal Type Associated Problems Recent Progress Patient-Stated? Author Blood Pressure < 140/90 Blood Pressure 146/90( 025 9:27 AM EST) No Zayra Schneider, PharmHector Record your blood pressure once per day Blood Pressure No Zayra Schneider PharmD documented as of this encounter Visit Diagnoses Not on filedocumented in this encounter Additional Health Concerns Assessment Noted Time PHQ-9 Depression Total Score: 0 01/27/20 25 1:31 PM EDT documented as of this encounter Care Teams Inspector Casing Relationship Specialty Start Date End Date Nilda Chew MD [address] [place] [address] PCP - General Family Medicine 08/06/12 Daryn Nair MD [address] [place] [address] 3rd [place] [address] Cardiology 02/23/25 documented as of this encounter
--- OUTSIDE RECORDS SUMMARY | 2025-06-26 10:02 | XMS_ITS | Encounter Summary ---
Author Organization [place] Address [address] [facility] [address] [place] [address] Care Team Providers Care [place] Name Role Phone Nilda Chew MD Primary Care Provider [phone] Daryn Nair MD Unavailable [phone] Encounter Details Date Type Department Care Team (Latest Contact Info) Description 06/26/2025 Travel Social History Tobacco Use Types Packs/Day Years [...] AM EDT documented as of this encounter Plan of Treatment Upcoming Encounters Date Type Department Care Team (Late st Contact Info) Description 10/25/2025 11:00 AM EST Office Visit [facility] [address] [place] [address] MiltonShellie jimenez, OD [address] [place] [address] documented as of this encounter Goals Goal [...] documented as of this encounter Care Teams [place] Relationship Specialty Start Date End Date Nilda Chew MD [address] [place] [address] PCP - General Family Medicine 08/06/12 Daryn Nair MD [address] [place] [address] Cardiology 02/23/25 documented as of this encounter
--- OUTSIDE RECORDS SUMMARY | 2025-06-26 10:02 | XMS_ITS | Clinical Summary ---
Author Organization [employer] Address [address] [facility] 7 [place] [address] Care Team Providers Care Supervisor Dental Laboratory Name Role Phone Nilda Chew MD Primary Care Provider [phone] Daryn Nair MD Unavailable [phone] Allergies No known active allergies Medications valsartan (Diovan) 320 MG tabletIndications :Primary hypertension TAKE 1 TABLET BY MOUTH ONCE DAILY 90 tablet 4 Active allopurinol (Zyloprim) 100 MG tabletIndications :History of gout TAKE 1 TABLET BY MOUTH TWICE DAILY IN THE MORNING AND IN THE EVENING 180 tablet 3 4 Active apixaban (Eliquis) 5 MG tabletIndications :Paroxysmal atrial fibrillation (CMS/HCC) (HCC) Take 1 tablet (5 mg) by mouth 2 times daily. 180 tablet 3 4 Active metoprolol tartrate (Lopressor) 100 MG tabletIndications :Paroxysmal atrial fibrillation (CMS/HCC) (HCC) Take 100 mg by mouth 2 times daily. Active rosuvastatin (Crestor) 20 MG tabletIndications :Dyslipidemia,Typ e 2 diabetes mellitus with hyperglycemia, without long-term current use of insulin (HCC) TAKE 1 TABLET BY MOUTH EVERY EVENING 60 tablet 5 5 Active sertraline (Zoloft) 50 MG tabletIndications :Depression, unspecified depression type TAKE 1 TABLET BY MOUTH EVERY MORNING 30 tablet 3 5 Active Calcium Carb-Cholecalcife rol 600-10 MG-MCG tabletIndications :Adequate nutrition TAKE 1 TABLET BY MOUTH TWICE DAILY IN THE MORNING AND IN THE EVENING 180 tablet 5 Active dilTIAZem SR (Cardizem SR) 60 MG 12 hr capsuleIndication s:Paroxysmal atrial fibrillation (CMS/HCC) (HCC) TAKE 1 CAPSULE BY MOUTH TWICE DAILY IN THE MORNING AND IN THE EVENING 120 capsule 2 5 Active Ventolin HFA 108 (90 Base) MCG/ACT inhaler inhale 2 puffs by mouth every 4 hours as needed for wheezing or shortness of breath 5 Active Active Problems Patient Care Coordination No te Formatting of this note migh t be different from the original. 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 [facility] [phone] Problem Noted Date Diagnosed Date Preoperative examination 01/26/2025 Assessment & Plan (01/26/2025 1:40 PM EDT): Patient is here for a preoperative exam Patient is scheduled for: Cataracts Right Eye Date of Surgery: 02/02/25 Type of anesthesia: MAC Lab needed: No EKG: No Surgeon's name: Mehul Amaya Facility name: [facility] Surgeon's office number: [phone] ext [phone] Surgeon's office fax number: [phone] After careful review of patient's most recent laboratory tests: And today's Physical examination I do not see any contraindication for patient to undergo this: low Risk surgical intervention. Patient has been advised to follow up after the procedure has been completed In regards to her HTN, pt is to take her Blood pressure medications with a small sip of water prior to the procedure to prevent her Blood pressure from going up. Encounter for screening mamm ogram for malignant neoplasm of breast 08/31/2024 Overview (08/31/2024): 08/04/24 BI-RADS 1 - Negative, continue annual screening. Assessment & Plan (08/31/2024 2:45 PM EST): 08/04/24 BI-RADS 1 - Negative, continue annual screening. Anxiety 08/31/2024 Overview (08/31/2024): recently about 3 months ago. Needs her dog to live with her to keep her company. Discussed going to Medical Records to get letter since this will help control pt's anxiety and BP. Assessment & Plan (08/31/2024 2:55 PM EST): recently about 3 months ago. Needs her dog to live with her to keep her company. Discussed going to Medical Records to get letter since this will help control pt's anxiety and BP. Obstructive sleep apnea 12/29/2023 Overview (12/29/2023): Followed by concrete vibrator operator, Dr. Anderson. Sleep study 06/10/23 noted moderately severe ELENI with total sleep time AHI 17. CPAP was ordered but she was not compliant -sleep study reordered by Dr. Anderson 12/29/23 to assist in insurance cover as pt very symptomatic Assessment & Plan (08/31/2024 2:49 PM EST): Followed by concrete vibrator operator, Dr. Anderson. Sleep study 06/10/23 noted moderately severe ELENI with total sleep time AHI 17. CPAP was ordered but she was not compliant -sleep study reordered by Dr. Anderson 12/29/23 to assist in insurance cover as pt very symptomatic Other specified health status 03/25/2023 Overview (08/31/2024): -next comprehensive annual evaluation due after 08/31/25 -eye care facilitated by [facility], referral done 01/12/2023. -dental home is [place]. -Health care proxy filed 11/25/2023 Assessment & Plan (08/31/2024 2:46 PM EST): -next comprehensive annual evaluation due after 08/31/25 -eye care facilitated by [facility], referral done 01/12/2023. -dental home is [place]. -Health care proxy filed 11/25/2023 Assessment & Plan (11/25/2023 3:45 PM EDT): -next physical exam due after 03/25/2024. -eye care facilitated by [facility], referral done 01/12/2023. -dental home is [place]. -Health care proxy filed 11/25/2023 Assessment & Plan (03/25/2023 3:45 PM EDT): -next physical exam due after 03/25/2024. -eye care facilitated by [facility], referral done 01/12/2023. -dental home is [place]. Right knee pain 03/25/2023 Overview (03/25/2023): Referral for PT done 03/25/2023. Assessment & Plan (03/25/2023 3:49 PM EDT): Referral for PT done 03/25/2023. Colon cancer screening 12/25/2022 Overview (03/08/2025): Pt did not get the colo guard. She agrees to GI referral done 03/25/2023. Number given to call on 11/25/2023. Re-referred to GI for colonoscopy 08/31/24, apt scheduled for 03/10/25 Assessment & Plan (08/31/2024 2:44 PM EST): Pt did not get the colo guard. She agrees to GI referral done 03/25/2023. Number given to call on 11/25/2023. Re-referred to GI for colonoscopy 08/31/24 Assessment & Plan (11/25/2023 3:42 PM EDT): Pt did not get the colo guard. She agrees to GI referral done 03/25/2023. Number given to call on 11/25/2023 Assessment & Plan (03/25/2023 3:52 PM EDT): Pt did not get the colo guard. She agrees to GI referral done 03/25/2023. Assessment & Plan (12/25/2022 3:28 PM EDT): Pt agrees to ColoGaurd. Fibromyalgia 12/25/2022 Overview (12/25/2022): Pt is going to medical records to requst a a WET END SUPERVISOR. Assessment & Plan (03/25/2023 2:23 PM EDT): Pt is going to medical records to requst a a WET END SUPERVISOR. Assessment & Plan (12/25/2022 3:32 PM EDT): Pt is going to medical records to requst a a WET END SUPERVISOR. Paroxysmal atrial fibrillation (CMS/HCC) 023 Overview (02/23/2025): Diagnosed on 02/12/22 when she reported SOB on her routine visit, irregular heart beat found on exam. Because of obesity, noncompliance with CPAP, treated by rate control only. -EKG on 02/12/22 shows A FIB -[id number] 3. -Eliquis 5mg PO BID started 02/12/2022 -Currently rate controlled on beta licha Metoprolol 50mg BID also on Amlodipine 5mg, Valsartan 320 daily, diltiazem 60mg -Followed by Dr. Daryn Nair of [facility], note from 02/21/25 reviewed, Clinically, she has got no symptoms. Continue diltiazem/metoprolol. Continue anticoagulation. -Echocardiogram-LVEF > 70%. No significant valvular issues. -Holter-well controlled atrial fibrillation with an average rate of 67/Min. -She does have a h/o bradycardia with increasing her betablocker. Assessment & Plan (01/26/2025 1:55 PM EDT): Pt with A.fib, cataract surgery is considered a low bleeding risk procedure and the use of MAC anesthesia does not significantly increase bleeding risk. Based on current clinical guidelines and expert consensus continuation of Eliquis is appropriate and recommended in a patient with no Hx of bleeding complications, no coagulopathy or other risk factors Assessment & Plan (08/31/2024 2:48 PM EST): Diagnosed on 02/12/22 when she reported SOB on her routine visit, irregular heart beat found on exam. -EKG on 02/12/22 shows A FIB -[id number] 3. - Eliquis 5mg PO BID started 02/12/2022 -Currently rate controlled on beta licha Metoprolol 50mg BID also on Amlodipine 5mg, Valsartan 320 daily, diltiazem 60mg -Followed by Dr. Daryn Nair of [facility], note from 01/07/24 reviewed, Holtor monitor ordered before 6 month follow up -She does have a h/o bradycardia with increasing her betablocker. Assessment & Plan (03/25/2023 2:23 PM EDT): Diagnosed on 02/12/22 when she reported SOB on her routine visit, irregular heart beat found on exam. -EKG on 02/12/22 shows A FIB -[id number] 3. - Eliquis 5mg PO BID started 02/12/2022 -Currently rate controlled on beta licha Metoprolol 50mg BID also on Amlodipine 5mg, Valsartan 320 daily. -Seen by cardiology 03/26/2022, and was in NSR at that time. echo, Holter and sleep study ordered -She does have a h/o bradycardia with increasing her betablocker. Assessment & Plan (10/30/2022 2:33 PM EST): Diagnosed on 02/12/22 when she reported SOB on her routine visit, irregular heart beat found on exam. -EKG on 02/12/22 shows A FIB -[id number] 3. - Eliquis 5mg PO BID started 02/12/2022 -Currently rate controlled on beta licha Metoprolol 50mg BID also on Amlodipine 5mg, Valsartan 320 daily. -Seen by cardiology 03/26/2022, and was in NSR at that time. echo, Holter and sleep study ordered -She does have a h/o bradycardia with increasing her betablocker. 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 -Has biopsy of the vulva scheduled for 03/[address] Garcia to r/o ELISE given continued leukoplakea of the vulva -Pt had biopsy of the vulve with dr Garcia. No neoplasm. Assessment & Plan (03/25/2023 3:39 PM EDT): -Biopsy done on 10/23/2017 consistent with partially treated lichen sclerosus, no evidence of malignancy or neoplasm. -Has biopsy of the vulva scheduled for 03/[address] Garcia to r/o ELISE given continued leukoplakea of the vulva. -Pt had biopsy of the vulve with dr Garcia. No neoplasm. Post-menopausal bleeding 09/30/2022 Overview (03/25/2023): On 12/29/2021 pt reproted bleeding requiring 5 pads a day for 10 days, she under went menopause at age 56. She had a normal pap in 2017. Pt had a transvaginal ultrasound in 12/2021 that showed endometrial stripe upper limits normal of age. -no longer bleeding. Pt seen Dr Garcia on 05/19/22, endometrial biopsy had no atypia and vulva biopsy no neoplasm. She had a polyp in endometrium and offered hysteroscopy and possible polypectomy verses expected management. Advised to follow up if bleeding occurs. Assessment & Plan (03/25/2023 3:38 PM EDT): On 12/29/2021 pt reproted bleeding requiring 5 pads a day for 10 days, she under went menopause at age 56. She had a normal pap in 2017. Pt had a transvaginal ultrasound in 12/2021 that showed endometrial stripe upper limits normal of age. -no longer bleeding. -She was referred to a Dance Master but they were not able to get in touch with her. Apt scheduled today and given to pt for later this month Pt seen Dr Garcia on 05/19/22, endometrial biopsy had no atypia and vulva biopsy no neoplasm. She had a polyp in endometrium and offered hysteroscopy and possible polypectomy verses expected management. Advised to follow up if bleeding occurs. Does mobilize using cane 09/30/2022 History of gout 09/30/2022 Right hip pain 09/30/2022 Morbid (severe) obesity due to excess calories ( [facility]) 03/25/2022 Cyst of kidney, acquired 03/12/2022 Overview (03/25/2023): On 01/08/2022 pt reproted right flank pain. CT on 01/10/22 showed a small right kidney, bilateral kidney stones, mild right hydronephrosis and ureteral dilation, left renal cyst, and small right plural effusion. -She was referred to Urology and referral was faxed on 01/21/2022. left sided Assessment & Plan (03/25/2023 2:23 PM EDT): On 01/08/2022 pt reproted right flank pain. CT on 01/10/22 showed a small right kidney, bilateral kidney stones, mild right hydronephrosis and ureteral dilation, left renal cyst, and small right plural effusion. -She was referred to Urology and referral was faxed on 01/21/2022. left sided Dyslipidemia 03/12/2022 Overview (08/31/2024): Lab Results Component Value Date CHOL 194 03/18/2023 TRIG 102 03/18/2023 HDL 42 03/18/2023 LDLCHOLCAL 132 03/18/2023 -continue lifestyle modification -ordered repeat FLP 08/31/24 Assessment & Plan (08/31/2024 2:45 PM EST): Lab Results Component Value Date CHOL 194 03/18/2023 TRIG 102 03/18/2023 HDL 42 03/18/2023 LDLCHOLCAL 132 03/18/2023 -continue lifestyle modification -ordered repeat FLP 08/31/24 Assessment & Plan (03/25/2023 2:28 PM EDT): Lab Results Component Value Date CHOLESTEROL 175 08/08/2020 LDLCHOL 108 (H) 08/08/2020 TRIG 102 03/18/2023 HDLCHOL 46 (L) 08/08/2020 CHOLHDLRAT 3.8 08/08/2020 -continue lifestyle modifications Mild intermittent asthma 11/18/2021 Overview (10/30/2022): Well controlled on albuterol prn alone. Assessment & Plan (08/31/2024 2:49 PM EST): Well controlled on albuterol prn alone. Assessment & Plan (03/25/2023 2:23 PM EDT): Well controlled on albuterol prn alone. Assessment & Plan (10/30/2022 11:32 AM EST): Well controlled on albuterol prn alone. Major depressive disorder 11/18/2021 Renal calculus 07/12/2021 Stage 2 chronic kidney disease 07/07/2012 Overview (03/08/2025): -Ma/Cr ration 05/2021 1,454 ug/mg/cr -Cr 1.05 10/04/2021 -PT thought she had nepthrology but it was urology Will refer to nephrology. -She had a nephrology appointment on 03/25/22 and we will request the note. -She saw , notes requested 03/31/22. Assessment & Plan (03/25/2023 2:24 PM EDT): -Ma/Cr ration 05/2021 1,454 ug/mg/cr -Cr 1.05 10/04/2021 -PT thought she had nepthrology but it was urology Will refer to nephrology. -She had a nephrology appointment on 03/25/22 and we will request the note. -She saw , notes requested 03/31/22. Assessment & Plan (10/30/2022 2:20 PM EST): -Ma/Cr ration 05/2021 1,454 ug/mg/cr -Cr 1.05 10/04/2021 -PT thought she had nepthrology but it was urology Will refer to nephrology. -She had a nephrology appointment on 03/25/22 and we will request the note. -She saw , notes requested 03/31/22. Hypertension 07/07/2012 Overview (11/18/2024): Well controlled. -Graduated from CDTM program 11/18/24 -continue Valsartan 320mg once daily -continue Metoprolol tartrate 100mg bid -continue Diltiazem ER 120mg once daily decreased to 60mg 01/06/24 due to bradycardia -Ordered labs 08/31/24 Assessment & Plan (08/31/2024 2:49 PM EST): Well controlled. -Followed by CDTM. -continue Valsartan 320mg once daily -continue Metoprolol tartrate 100mg bid -continue Diltiazem ER 120mg once daily decreased to 60mg 01/06/24 due to bradycardia -Due to patient report of not taking hydralazine for more than one week and BP within goal along with improvement in home BP readings, hydralazine to remain off of treatment plan and discontinued; patient agrees with plan. -Ordered labs 08/31/24 Assessment & Plan (03/25/2023 2:23 PM EDT): Well controlled. -Followed by CDTM. -continue Valsartan 320mg once daily -continue Metoprolol tartrate 100mg bid -continue Diltiazem ER 120mg once daily -Due to patient report of not taking hydralazine for more than one week and BP within goal along with improvement in home BP readings, hydralazine to remain off of treatment plan and discontinued; patient agrees with plan. Assessment & Plan (12/25/2022 3:33 PM EDT): Well controlled. -Followed by CDTM. -continue Valsartan 320mg once daily -continue Metoprolol tartrate 100mg bid -continue Diltiazem ER 120mg once daily -Due to patient report of not taking hydralazine for more than one week and BP within goal along with improvement in home BP readings, hydralazine to remain off of treatment plan and discontinued; patient agrees with plan. Assessment & Plan (10/30/2022 2:19 PM EST): Not controlled. Followed br DR. Multani Continue dilt CD 180 daily. Continue metoprolol 50mg daily. Cont valsartan 320mg daily. Start Hydralazine 50mg QHS. She will check home BP. Will f/u with cardiology. Type 2 diabetes mellitus 04/20/2012 Overview (03/08/2025): Diabetes is controlled. Lab Results Component Value Date HGBA1C 5.6 08/31/2024 HGBA1C 5.4 11/25/2023 HGBA1C 5.4 03/18/2023 Lab Results Component Value Date MICROALBUR 110.5 05/31/2021 CREATININE 1.14 03/18/2023 -Abdoulaye/Arb:valsartan 320mg -Statin therapy: Atorvastatin 40mg daily. -Diabetic eye exam: Referral done 01/12/2023. -Diabetic foot exam: done 08/31/24 -Continue lifestyle modifications -Continue current medications -Continue ARB calsartan 160mg daily -Ordered labs 08/31/24 Assessment & Plan (01/26/2025 1:53 PM EDT): In terms of her DM She is diet controlled, currently on no meds Assessment & Plan (08/31/2024 2:48 PM EST): Diabetes is controlled. - Lab Results Component Value Date HGBA1C 5.6 08/31/2024 HGBA1C 5.4 11/25/2023 HGBA1C 5.4 03/18/2023 -No results found for: POCA1C - Lab Results Component Value Date MICROALBUR 110.5 05/31/2021 CREATININE 1.14 03/18/2023 -Abdoulaye/Arb:valsartan 320mg -Statin therapy: Atorvastatin 40mg daily. -Diabetic eye exam: Referral done 01/12/2023. -Diabetic foot exam: done 08/31/24 -Continue lifestyle modifications -Continue current medications -Continue ARB calsartan 160mg daily -Ordered labs 08/31/24 Assessment & Plan (03/25/2023 3:45 PM EDT): Diabetes is controlled. - Lab Results Component Value Date HGBA1C 5.4 03/18/2023 HGBA1C 5.7 10/30/2022 HGBA1C 5.6 05/31/2021 -No results found for: POCA1C - Lab Results Component Value Date MICROALBUR 110.5 05/31/2021 CREATININE 1.14 03/18/2023 -Changes: -Abdoulaye/Arb: -Statin therapy: Atorvastatin 40mg daily. -Diabetic eye exam: Referral done 01/13/23. -Diabetic foot exam: -Continue lifestyle modifications -Continue current medications -Continue ARB calsartan 160mg daily Assessment & Plan (12/25/2022 3:25 PM EDT): - Diabetes is controlled on diet alone. Hemoglobin A1c is at goal of <7. - Urine microalbumin/creatinine ratio is NOT at goal of <35ug/mg/cr. foot - Flu shot and pneumovax are up-to-date. - Continue Atorvastatin 40mg daily. - Continue ARB calsartan 160mg daily - Yearly foot exam done/current - Yearly ophthalmologic exam done/current - Importance of low-fat, low cholesterol, ADA diet discussed. Importance of moderate physical activity discussed. Assessment & Plan (10/30/2022 3:51 PM EST): - Diabetes is controlled on diet alone. Hemoglobin A1c is at goal of <7. - Urine microalbumin/creatinine ratio is NOT at goal of <35ug/mg/cr. foot - Flu shot and pneumovax are up-to-date. - Continue Atorvastatin 40mg daily. - Continue ARB calsartan 160mg daily - Yearly foot exam done/current - Yearly ophthalmologic exam done/current - Importance of low-fat, low cholesterol, ADA diet discussed. Importance of moderate physical activity discussed. -A1c 5.7% 10/30/2022. Resolved Problems Problem Noted Date Diagnosed Date Resolved Date Weakness 10/30/2022 10/30/2022 Paresthesias 10/30/2022 10/30/2022 Walker as ambulation aid 10/30/202204/2023 Pleural effusion 09/30/2022 08/18/2024 Overview (09/30/2022): CT scan 01/12/22 done for flank pain showed a small right pleural effusion. Check CXR. Chest X-ray ordered but not done yet. Assessment & Plan (03/25/2023 2:24 PM EDT): CT scan 01/12/22 done for flank pain showed a small right pleural effusion. Check CXR. Chest X-ray ordered but not done yet. Unspecified menopausal and p erimenopausal disorder 03/25/2022 03/25/2023 Edema 03/25/2022 08/18/2024 Stage 3a chronic kidney disease ([facility]) 03/17/2022 10/30/2022 Hydronephrosis 03/12/2022 08/18/2024 Other proteinuria 03/12/2022 08/18/2024 Gout 03/12/2022 08/18/2024 Thoracic back pain 03/12/2016 3 Encounters Date Type Department Care Team Description 06/26/2025 9:45 AM EST Office Visit [facility] [address] [place] [id number] Nilda Chew MD Arrived 06/26/2025 Travel 06/24/2025 Refill [facility] [address] [place] [address] Nilda Chew MD Depression, unspecified depression type 06/23/2025 Telephone [facility] [address] [place] [id number] Nilda Chew MD chartprep 06/23/2025 Telephone [facility] [address] [place] [address] Nilda Chew MD blood work before the appt 06/22/2025 Telephone [facility] [address] [place] [address] Nilda Chew MD 06/19/2025 1:00 PM EDT Office Visit [facility] [address] [place] [address] Shellie Rose, OD Glaucoma 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 (Primary Dx); Pseudophakia of both eyes 06/19/2025 Travel 05/16/2025 Telephone [facility] [address] [place] [address] Shellie Rose, OD 05/10/2025 9:15 AM EDT Office Visit [facility] [address] [place] [address] Shellie Rose, OD Presbyopia (Primary Dx) 05/10/2025 Travel 04/29/2025 Refill [facility] [address] [place], [place] [phone] Nilda Chew MD Paroxysmal atrial fibrillation ([facility]) 03/27/2025 Refill [facility] [address] [place], [place] [phone] Mariella Lara MD Adequate nutrition from Last 3 Months Immunizations Immunization Administration Dates Next Due Hep B, adult 04/20/2012,05/29/2010,05/07/2010 Influenza Injectable Quadriv alant Preservative Free IIV4 MDCK 06/24/2023 Influenza injectable quadriv alent IIV4 with preservative 06/01/2017,07/11/2015 Influenza injectable quadriv alent preservative free 06/12/2022,05/31/2021 Influenza, High Dose Seasona l, Preservative Free 08/31/2024,08/18/2019 Influenza, IIV3, injectable 05/12/2014, 1 Influenza, Split (incl. helen fied surface antigen) 06/17/2013,04/20/2012 Pfizer Covid-19 Vaccine 12+ 08/31/2024,0 11/25/2023,06/03/2021,05/13 Pfizer Covid-19 Vaccine 12+ Bivalent 12/25/2022 Pneumococcal Conjugate PCV 20 03/25/2023 Pneumococcal Polysaccharide PPSV23 09/02/2006 RSV Bivalent 12/02/2024 TD (adult), 2 Lf tetanus tox oid, preservative free, adsorbed 03/11/2006 Tdap 11/25/2023,06/17/2013 Zoster, Recombinant 06/24/2023,03/25/2023 Family History Medical History Relation Name Comments Diabetes Father Hypertension Father Prostate cancer Father Dementia Mother Parkinsonism Mother Diabetes Paternal Grandmother Hypertension Paternal Grandmother Relation Name Status Comments Father Mother Paternal Grandmother Social History Tobacco Use Types Packs/Day Years Used Date Smoking Tobacco: Former Cigarettes Passive Smoke Exposure: Never Smokeless Tobacco: Never Tobacco Cessation:Counseling Given: Not Answered Depression Answer Date Recorded Patient Health Questionnaire-9 [...] Orientation Straight 06/23/2022 10 :14 AM EDT Last Filed Vital Signs Vital Sign Reading Time Taken Comments Blood Pressure 146/90 06/26/2025 9:27 AM EST Pulse 99 06/26/2025 9:27 AM EST Temperature 35.4 C (95.7 F) 06/26/2025 9:27 AM EST Respiratory Rate 16 06/26/2025 9:27 AM EST Oxygen Saturation 97% 01/26/2025 1:25 PM EDT Inhaled Oxygen Concentration - - Weight 123 kg (271 lb 1.6 oz) 06/26/2025 9:27 AM EST Height 152.4 cm (5') 06/26/2025 9:27 AM EST Body Mass Index 52.95 06/26/2025 9:27 AM EST Plan of Treatment Upcoming Encounters Date Type Department Care Team (Late st Contact Info) Description 10/25/2025 11:00 AM EST Office Visit [facility] [address] [place], [place] [phone] Milton, Megan, OD [address] [place] [address] Health Maintenance Due Date Last Done Comments CT Colonography 1958 FIT DNA/Cologuard 1958 FIT 1958 FOBT 1960 Sigmoidoscopy 1960 Colonoscopy 10/22/2021 10/23/2011 Colorectal Cancer Screening 10/22/2021 Diabetes: Urine Protein Screening 05/31/2022 05/31/2021, 08/08/2020 Lipid Panel 03/18/2024 03/18/2023, 08/08/2020 COVID-19 Vaccine ( season) 2025 08/31/2024, 11/25/2023, 12/25/2022, Additional history exists Influenza Vaccine (#1) 2025 , 06/24/2023, 06/12/2022, Additional history exists Diabetes: Hemoglobin A1C 07/28/2025 025, 08/31/2024, 11/25/2023, Additional history exists Depression Screening 01/26/2026 01/26/2025, 01/27/20 25 SDOH Screening 01/26/2026 01/26/2025 Alcohol/Substance Use Screening 06/26/2026 06/26/2025 Diabetes: Foot Exam 06/26/2026 06/26/2025, 06/26/2025, 06/26/2025, Additional history exists Tobacco Screening 06/26/2026 06/26/2025 Eye Exam 07/29/2026 07/29/2024, 120 01/2024, 07/29/2024, Additional history exists Mammogram 08/04/2026 08/04/2024, 080 10/2021, 09/06/2019, Additional history exists DTaP/Tdap/Td Vaccines (3 - Td or Tdap) 11/24/2033 11/25/2023, 06/17/2013, 03/11/2006 Hepatitis B Vaccines Discontinued 04/20/2012, 05/29/2010, 05/07/2010 Pap Smear Discontinued 12/22/2016 Cervical Cancer Screening Discontinued HPV/Cotest Discontinued 03/18/2022, 02/22, 01/16/2017 Hepatitis C Screening Completed 03/18/2023 Pneumococcal Vaccine: 50+ Years Completed 03/25/2023, 09/02/2006 Zoster Vaccines Completed 06/24/2023, 03/25/2023 RSV Patients and Patients Aged 60 years or older Completed 12/02/2024 HIB Vaccines Aged Out No longer eligi [...] patient's age to complete this topic Meningococcal Vaccine Aged Out No booker israel eligible based on patient's age to complete this topic RSV under 20 months Aged Out No longe r eligible based on patient's age to complete this topic Rotavirus Vaccines Aged Out No longer eligible based on patient's age to complete this topic Goals Goal Patient Goal Type Associated Problems Recent Progress Patient-Stated? Author Blood Pressure < 140/90 Blood Pressure 146/90( 025 9:27 AM EST) No Zayra Schneider, PharmD Record your blood pressure once per day Blood Pressure No Zayra Schneider, PharmD Procedures Procedure Name Priority Date/Time Associated Diagnosis Comments AUTOMATED VISUAL FIELD, EXTENDED - OU - BOTH EYES Routine 06/19/2025 2:48 PM EDT Glaucoma 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 POCT GLYCATED HEMOGLOBIN, TOTAL Routine 01/26/2025 1:29 PM EDT Type 2 diabetes mellitus with hyperglycemia, without long-term current use of insulin (CMS/HCC) BI MAMMOGRAM SCREENING TOMOSYNTHESIS BILATERAL Routine 08/04/2024 1:45 PM EST Screening mammogram for breast cancer HEPATITIS C ANTIBODY REFLEX Routine 03/18/2023 9:30 AM EDT LIPID PANEL, STANDARD Routine 03/18/2023 9:30 AM EDT Type 2 diabetes mellitus with hyperglycemia, without long-term current use of insulin (CMS/HCC) Routine adult health maintenance Hypertension, unspecified type ZZZ HISTORICAL HPV E6/E7 RFLX ROBERTA 16 Routine 03/18/2022 8:56 AM EDT ALBUMIN, RANDOM URINE W/CREATININE Routine 05/31/2021 11:39 AM EDT PAP SMEAR Routine 12/22/2016 12:00 AM EDT HM COLONOSCOPY Routine 10/23/2011 from Last 3 Months or Most Recently Relevant to Health Maintenance Results * Automated Visual Field, Extended - OU - Both Eyes (06/19/2025 2:48 PM EDT) Narrative Shellie Rose, OD - 06/19/2025 2:48 PM EDT VISUAL FIELD INTERPRETATION Visual Field Interpretation Test Details: Octopus G P Pulsar/200/TOP Reliability Indices: False positive errors OD: 0/7 OS: 0/7 False negative errors OD: 0/7 OS: 0/7 Statistical Indices: MS [src]: OD: 21.7 OS: 20.2 MD [< 2.0 src]: OD: -0.2 OS: 1.2 sLV [< 2.5 src]: OD: 1.8 OS: 2.2 Impression: Reason for testing: Suspicion for glaucoma in both eyes due to large optic nerve cupping and borderline intraocular pressure. Past visual cesar were not reliable due to cataracts. The patient has had cataract surgery in both eyes since her last visit. Test Reliability: Good reliability. Good fixation, no false negatives/positives. Impression: Right eye (OD): Few shallow superior defects Left eye (OS): Shallow nasal defect straddling the horizontal midline Progression: Much improved in both eyes secondary to cataract surgery. This test is the baseline post cataract extraction. Management Plan: No treatment recommended at this time. Will have the patient return in Aug- for a dilated eye exam. Will obtain updated OCT of optic nerves at that visit. Will repeat visual field test following that exam. Shellie Milton OD OPHTH VISUAL FIELD Final Resu lt * POCT HGB A1C (01/26/2025 1:29 PM EDT) Hemoglobin A1C 5.7 4.0 - 6.0 % QC Media Lot # [id number] Lot# Expiration Date Blood 01/26/2025 1:29 PM EDT Gustavo Ellis MD POINT OF CARE TEST EN TER/EDIT ORDERABLES Final Result * BI Mammogram Screening Tomosynthesis Bilateral (08/04/2024 1:45 PM EST) Anatomical Region Laterality Modality Breast Bilateral Mammography 08/04/2024 1:45 PM EST Narrative 08/11/2024 2:53 PM EST [facility] [address] [place] [address] Mammography Report Signed Patient: Kavita Gil MR#: [id number] : 1960 Acct:[id number] Age/Sex: 64 / F ADM Date: 08/04/24 Loc: HO.MAMMO Attending Dr: Nilda Chew MD Ordering Physician: Nilda Chew MD Results: 1N egative Date of Service: 08/04/24 Follow Up: 1 Year From Orig inal Mammogram Procedure(s): MM tomosynthesis screening BI Accession Number(s): [id number] cc: Nilda Chew MD EXAMINATION: MM SCREENING DIGITAL BREAST TOMOSYNTHESIS, BILATERAL CLINICAL INFORMATION: Screening. Asymptomatic. COMPARISON: Mammography: Comparison is made with available priors TECHNIQUE: Digital breast mammography with tomosynthesis is performed in both the craniocaudal and mediolateral oblique views along with computer-aided detection (CAD). FINDINGS: There are scattered areas of fibroglandular density (ACR BI-RADS breast composition Category b). There are no significant masses, abnormal calcifications, or other abnormalities. MM/MM tomosynthesis screening BI IMPRESSION: No mammographic evidence of malignancy. ASSESSMENT: BI-RADS BI-RADS 1 - Negative RECOMMENDATION: Routine annual mammography screening. 1 year F/U This examination should not preclude the clinical evaluation of a suspicious palpable abnormality. This patient's information was entered into a reminder system with a target due date for their next mammogram. Electronically signed by: Naomi Galloway DO 08/11/2024 02:50 PM [facility] [place] Dictated By: Naomi Galloway DO Signed By: <Electronically signed by Naomi Galloway DO in OV> 08/11/24 1450 DD/ 1345 TD/TT: 08/04/24 1400 [employer]: Procedure Note Donotuseinterpreter, Image - 08/11/2024 [facility] [address] [place] [address] Mammography Report Signed Patient: Kavita Gil [facility]#: [id number] : 8Acct:[id number] Age/Sex: 64 / FADM Date: 08/04/24 Loc: HO.MAMMO Attending Dr: Nilda Chew MD Ordering Physician: Nilda Chew MDResults: 1N egative Date of Service: 08/04/24Follow Up: 1 Year From Orig inal Mammogram Procedure(s): MM tomosynthesis screening BI Accession Number(s): [id number] cc: Nilda Chew MD EXAMINATION: MM SCREENING DIGITAL BREAST TOMOSYNTHESIS, BILATERAL CLINICAL INFORMATION: Screening. Asymptomatic. COMPARISON: Mammography: Comparison is made with available priors TECHNIQUE: Digital breast mammography with tomosynthesis is performed in both the craniocaudal and mediolateral oblique views along with computer-aided detection (CAD). FINDINGS: There are scattered areas of fibroglandular density (ACR BI-RADS breast composition Category b). There are no significant masses, abnormal calcifications, or other abnormalities. MM/MM tomosynthesis screening BI IMPRESSION: No mammographic evidence of malignancy. ASSESSMENT: BI-RADS BI-RADS 1 - Negative RECOMMENDATION: Routine annual mammography screening. 1 year F/U This examination should not preclude the clinical evaluation of a suspicious palpable abnormality. This patient's information was entered into a reminder system with a target due date for their next mammogram. Electronically signed by: Naomi Galloway DO 08/11/2024 02:50 PM EST Dictated By: Naomi Galloway DO Signed By: <Electronically signed by Naomi Galloway DO in OV> 08/11/24 1450 DD/ 1345 TD/TT: 08/04/24 1400 Forester [employer]: Nilda Chew MD IMG BI PROCEDURES Final Re sult * Hepatitis C Antibody Reflex (03/18/2023 9:30 AM EDT) Hepatitis C Antibody Nonreactive Nonreactive [facility] Comment:Antibodies to HCV no t detected; does not exclude early acuteHCV infection. 03/18/2023 9:30 AM EDT 03/18/2023 11:24 AM EDT Nilda Chew MD LAB BLOOD ORDERABLES Final Result [facility] [address] [place] [address] [phone] * Lipid Panel, Standard (03/18/2023 9:30 AM EDT) Triglycerides 102 mg/dL [facility] Comment:Desirable Triglyceri de: less than 150 mg/dLBorderline High Triglyceride 150-199 mg/dLHigh Triglyceride: 200-499 mg/dLVery High Triglyceride: greater than or equal to 5OO mg/dL Cholesterol 194 mg/dL [facility] Comment:Desirable Cholestero l: less than 200 mg/dLBorderline High Cholesterol: 200-239 mg/dLHigh Cholesterol: greater than 239 mg/dL LDL Cholesterol Calculated 132 mg/dl [facility] Comment:Desirable LDL: less than 100 mg/dLNear Optimal/Above Optimal LDL: 110- 129 mg/dLBorderline High LDL: 130-159 mg/dLHigh LDL: 160-189 mg/dLVery High LDL: greater than or equal to 190 mg/dL HDL Cholesterol 42 mg/dL [facility] Comment:Desirable HDL: great er than 40 mg/dL Note: This HDL assay may give artificially low results in patients with liver disease. Blood Venous blood specimen / Unknown 03/18/2023 9:30 AM EDT 03/18/2023 11:24 AM EDT Nilda hCew MD LAB BLOOD ORDERABLES Final Result [facility] [address] [place] [phone] * HPV E6/E7 RFLX ROBERTA 16 18/45 (03/18/2022 8:56 AM EDT) HPV 16 RNA [facility] HPV 18/45 RNA [facility] HPV E6 E7 ADD [facility] HPV mRNA E6/E7 rflx Not Detected Not Detected [facility] Comment: Methodology: Truck Driver Teamster-Mediated Amplification This assay detects E6/E7 viral messenger RNA (mRNA) from 14 high-risk HPV types (16,18,31,33,35,39,45,51,52,56,58,59,66,68). Cervical sources are required for HPV testing. If a vaginal source from a patient who has had a total hysterectomy with removal of cervix was submitted, please contact the testing laboratory for alternative testing options. For additional information, please refer to http://education.Ameri-tech 3D/faq/LHJ495f3 (This link if provided for information/ educational purposes only.) THIS TEST WAS PERFORMED AT: [facility] [address] [place] [address] [address]LO[address],[place] [address] ATA BLAND MD 03/18/2022 8:56 AM EDT Peng Garcia MD HISTORICAL/NON ORDERABLE LABS Fi nal Result Performing Organization Address [facility]/ZIP Co de Phone Number [facility] [address] [place] [address], * (ABNORMAL) ALBUMIN, RANDOM URINE W/CREATININE (05/31/2021 11:39 AM EDT) Microalbumin Urine 110.5 See Note: mg/dL [facility] Comment: Reference Range: Reference Range Not established Verified by repeat analysis. Microalb/Creat Ratio 1,454(H) <30 mcg/mg creat [facility] Comment: The ADA defines abnormalities in albumin excretion as follows: Albuminuria Category Result (mcg/mg creatinine) Normal to Mildly increased <30 Moderately increased 30-299 Severely increased > OR = 300 The ADA recommends that at least two of three specimens collected within a 3-6 month period be abnormal before considering a patient to be within a diagnostic category. Creatinine, Urine 76 20 - 275 mg/dL [facility] 05/31/2021 11:3 9 AM EDT Nilda Chew MD LAB URINE ORDERABLES Final Result Performing Organization Address [facility] Co de Phone Number [facility] [address] [place] [address], * Pap Smear (12/22/2016 12:00 AM EDT) Swab Historical Provider LAB CYTOLOGY ORDERABLES F inal Result Performing Organization Address City/[facility]/ZIP Co de Phone Number IMAGING * Hm Colonoscopy (10/23/2011) Colonoscopy Dr. 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
--- OUTSIDE RECORDS SUMMARY | 2025-06-26 10:02 | XMS_ITS | Encounter Summary ---
Author Organization [employer] Address [address] [facility] 7 [place] [address] Care Team Providers Care Computer Field Technician Name Role Phone Nilda Chew MD Primary Care Provider + [phone] Zayra Cooley PharmD Unavailable [phone] Daryn Nair MD Unavailable [phone] Reason for Visit * Reason Onset Date Comments LABORATORY PHLEBOTOMIST Services 12/29/2022 I called frandy to the patient's request for LABORATORY PHLEBOTOMIST services. She stated that she needs assistance with housekeeping, shopping, medications, bathing, and getting dressed. I informed her that after she is referred, she will receive a call to schedule an evaluation. She verbalized understanding. Encounter Details Date Type Department Care Team (Late st Contact Info) Description 12/29/2022 Telephone [facility] MEDICINE [address] [place] [address] Nilda Chew MD [address] [place] [address] LABORATORY PHLEBOTOMIST Services (I called regarding the patient's request for LABORATORY PHLEBOTOMIST services. She stated that she needs assistance with housekeeping, shopping, medications, bathing, and getting dressed. I informed her that after she is referred, she will receive a call to schedule an evaluation. She verbalized understanding.) Social History Tobacco Use Types Packs/Day Years [...] encounter Miscellaneous Notes * Telephone Encounter - Danna Gonzalez LPN - 01/07/2023 11:09 AM EDT Received auth to release, TC to [facility] piter gifford/Vivi, given all information for referral for LABORATORY PHLEBOTOMIST services, given dtr information to contact her for set up. * Telephone Encounter - Danna Gonzalez LPN - 12/30/2022 9:10 AM EDT Piter w/dtr on what programs we have, she would like to go through [facility] so that her mom can be eval. for what she needs. She will let her know we are sending auth to release form to be completed and sent back for us to do referral. Mailing today, Pend return documented in this encounter Plan of Treatment Upcoming Encounters Date Type Department Care Team (Late st Contact Info) Description 10/25/2025 11:00 AM EST Office Visit [facility] OPTOMETRY [address] [place] [address] MiltonShellie jimenez, OD [address] [place] [address] documented as of this encounter Goals Goal Patient Goal Type Associated Problems Recent Progress Patient-Stated? Author Blood Pressure < 140/90 Blood Pressure 146/90( 025 9:27 AM EST) No Zayra Schneider PharmD documented as of this encounter Visit Diagnoses Not on filedocumented in this encounter Additional Health Concerns Assessment Noted Time PHQ-9 Depression Total Score: 5 10/31/19 23 2:24 PM EST documented as of this encounter Care Teams Computer Field Technician Relationship Specialty Start Date End Date Nilda Chew MD [address] [place] [address] PCP - General Family Medicine 08/06/12 Zayra Cooley, Maria LuisaD [address] [place] [address] Pharmacist Internal Medicine 11/20/22 11/18/24 Daryn Nair MD [address] [place] [address] 3rd [place] [address] Cardiology 02/23/25 documented as of this encounter
--- OUTSIDE RECORDS SUMMARY | 2025-06-26 10:02 | XMS_ITS | Encounter Summary ---
Author Organization [facility] Address [address] [facility] 7 [place] [address] Care Team Providers Care Support Services Tech Name Role Phone Nilda Chew MD Primary Care Provider +- [phone] Zayra Cooley PharmD Unavailable [phone] Daryn Nair MD Unavailable [phone] Encounter Details Date Type Department Care Team (Late st Contact Info) Description 07/15/2023 Abstract [facility] MEDICINE [address] [place], [place] [phone] Nilda Chew MD [address] [place], [place] [phone] Social History Tobacco Use Types Packs/Day Years Used Date Smoking Tobacco: Never Passive Smoke Exposure: Never Smokeless Tobacco: Never Depression Answer Date Recorded Patient Health Questionnaire-9 Score 5 10/30/2022 Housing Stability Answer Date Recorded What is your housing situation today? I have ernie kenya 06/10/[address] you li ve. Do you have problems with any of the following? None of the above 06/10/2023 Food Insecurity Answer Date Recorded Within the past 12 months, y ou worried that your food would run out before you got money to buy more: Never True 06/10/2023 Within the past 12 months,th e food you bought just didn't last and you didn't have enough money to get more: Never True Transportation Answer Date Recorded In the past 12 months, has l ack of transportation kept you from medical appts, meetings, work or from getting things needed for daily living? No 06/10/2023 Utilities Answer Date Recorded In the past 12 months, has t he electric, gas, oil or water company threatened to shut off services in your home? No 06/10/2023 Depression Answer Date Recorded Patient Health Questionnaire-2 [...] Description 10/25/2025 11:00 AM EST Office Visit [facility] OPTOMETRY [address] [place] [address] Milton, Shellie, OD [address] [place] [address] documented as of this encounter Goals Goal Patient Goal Type Associated Problems Recent Progress Patient-Stated? Author Blood Pressure < 140/90 Blood Pressure 146/90( 025 9:27 AM EST) No Zayra Schneider, PharmD documented as of this encounter Procedures Procedure Name Priority Date/Time Associated Diagnosis Comments MAMMOGRAPHY Routine 03/26/2022 documented in this encounter Results * Mammography (03/26/2022) Mammogram bi-rads 1 Anatomical Region Laterality Modality Other us Historical Provider HEALTH MAINTENANCE Final Result documented in this encounter Visit Diagnoses Not on filedocumented in this encounter Additional Health Concerns Assessment Noted Time PHQ-9 Depression Total Score: 5 10/31/19 23 2:24 PM EST documented as of this encounter Care Teams Support Services Tech Relationship Specialty Start Date End Date Nilda Chew MD [address] [place] [address] PCP - General Family Medicine 08/06/12 Zayra Cooley, Evangelina [address] [place] [phone] Pharmacist Internal Medicine 11/20/22 11/18/24 Daryn Nair MD [address] [place] [address] 3rd [place] [address] Cardiology 02/23/25 documented as of this encounter
--- OUTSIDE RECORDS SUMMARY | 2025-06-26 10:02 | XMS_ITS | Encounter Summary ---
Author Organization [employer] Address [address] [facility] 7 [place] [address] Care Team Providers Care Test Department Helper Name Role Phone Nilda Chew MD Primary Care Provider [phone] Daryn Nair MD Unavailable Reason for Visit * Reason Onset Date Comments chartprep 06/23/2025 Encounter Details Date Type Department Care Team (Late st Contact Info) Description 06/23/2025 Telephone [facility] MEDICINE [address] [place], [place] [phone] Nilda Chew MD [address] [place], [place] [phone] chartprep Social History Tobacco Use Types Packs/Day Years [...] Encounter - Isela Ellis MA - 06/23/2025 4:19 PM EDT ..Chart Prep Labs: done Images: not applicable Vaccines due: Covid Due and Flu Due Referrals: Not Applicable Screenings: Colonoscopy Overdue care gaps: Sbirt documented in this encounter Plan of Treatment Upcoming Encounters Date Type Department Care Team (Late st Contact Info) Description 10/25/2025 11:00 AM EST Office Visit [facility] OPTOMETRY [address] [place] [address] Milton, Shellie, OD [address] [place] [address] documented as of this encounter Goals Goal Patient Goal Type Associated Problems Recent Progress Patient-Stated? Author Blood Pressure < 140/90 Blood Pressure 146/90( 025 9:27 AM EST) No Zayra Schneider, PharmHector Record your blood pressure once per day Blood Pressure No Zayra Schneider, PharmD documented as of this encounter Visit Diagnoses Not on filedocumented in this encounter Additional Health Concerns Assessment Noted Time PHQ-9 Depression Total Score: 0 01/27/20 25 1:31 PM EDT documented as of this encounter Care Teams Test Department Helper Relationship Specialty Start Date End Date Nilda Chew MD [address] [place] [address] PCP - General Family Medicine 08/06/12 Daryn Nair MD [address] [place] [address] 3rd [place] [address] Cardiology 02/23/25 documented as of this encounter
--- OUTSIDE RECORDS SUMMARY | 2025-06-26 10:02 | XMS_ITS | Encounter Summary ---
Author Organization [employer] Address [address] [facility] 7 [place] [address] Care Team Providers Care Glass Designer Name Role Phone Nilda Chew MD Primary Care Provider +- [phone] Zayra Cooley PharmD Unavailable [phone] Daryn Nair MD Unavailable Reason for Visit * Reason Comments Med Refill Encounter Details Date Type Department Care Team (Late st Contact Info) Description 06/24/2023 Refill [facility] MEDICINE [address] [place], [place] [phone] Nilda Chew MD [address] [place], [place] [phone] Social History Tobacco Use Types Packs/Day Years Used Date Smoking Tobacco: Never Passive Smoke Exposure: Never Smokeless Tobacco: Never Depression Answer Date Recorded Patient Health Questionnaire-9 Score 5 10/30/2022 Housing Stability Answer Date Recorded What is your housing situation today? I have ernie zambrano 06/10/[address] you li [...] Description 10/25/2025 11:00 AM EST Office Visit [facility] OPTOMETRY [address] [place], [place] [phone] Milton, Shellie, OD [address] [place] [address] documented as of this encounter Goals Goal [...] documented as of this encounter Care Teams Glass Designer Relationship Specialty Start Date End Date Nilda Chew MD [address] [place] [address] PCP - General Family Medicine 08/06/12 Zayra Cooley PharmD [address] [place], [place] [phone] Pharmacist Internal Medicine 11/20/22 11/18/24 Daryn Nair MD [address] [place] [address] Drive 3rd [place] [address] Cardiology 02/23/25 documented as of this encounter
--- OUTSIDE RECORDS SUMMARY | 2025-06-26 10:02 | XMS_ITS | Encounter Summary ---
Author Organization [facility] Address [address] [place] [address], [place] [address] Care Team Providers Care Executive Chef Name Role Phone Nilda Chew MD Primary Care Provider +1- [phone] Zayra Cooley PharmD Unavailable [phone] Daryn Nair MD Unavailable [phone] Encounter Details Date Type Department Care Team (Late st Contact Info) Description 10/21/2022 Abstract [facility] MEDICINE [address] [place], [place] [phone] Nilda Chew MD 230 [place], [place] [phone] Social History Tobacco Use Types Packs/Day Years [...] Encounters Date Type Department Care Team (Late Contact Info) Description 10/25/2025 11:00 AM EST Office Visit [facility] OPTOMETRY [address] [place], [place] [phone] Shellie Rose OD 230 [place] [address] documented as of this encounter Procedures Procedure Name Priority Date/Time Associated Diagnosis Comments MAMMOGRAPHY Routine 09/06/2019 PAP SMEAR Routine 12/22/2016 12:00 AM EDT COLONOSCOPY Routine 10/23/2011 documented in this encounter Results * Mammography (09/06/2019) Mammogram BIRADS 1 Anatomical Region Laterality Modality Other Historical Provider HEALTH MAINTENANCE Final Result * Pap Smear (12/22/2016 12:00 AM EDT) Swab Historical Provider LAB CYTOLOGY ORDERABLES F inal Result IMAGING * Colonoscopy (10/23/2011) Colonoscopy Dr. Abbasi Historical Provider HEALTH MAINTENANCE Final Result documented in this encounter Visit Diagnoses Not on filedocumented in this encounter Care Teams Executive Chef Relationship Specialty Start Date End Date Nilda Chew MD [address] [place] [address] PCP - General Family Medicine 08/06/12 Zayra Cooley, PharmD [address] [place] [address] Pharmacist Internal Medicine 11/20/22 11/18/24 Daryn Nair MD [address] [place] [address] Drive 3rd [place] [address] Cardiology 02/23/25 documented as of this encounter
--- OUTSIDE RECORDS SUMMARY | 2025-06-26 10:02 | XMS_ITS | Encounter Summary ---
Author Organization [employer] Address 75 [facility] 7 [place] [address] Care Team Providers Care Director Of Research Name Role Phone Nilda Chew MD Primary Care Provider [phone]- [phone] Daryn Nair MD Unavailable Reason for Visit * Reason Comments Med Refill Encounter Details Date Type Department Care Team (Late st Contact Info) Description 06/24/2025 Refill [facility] MEDICINE 230 [place], [place] [phone] Nilda Chew MD 230 [place], [place] [phone] Depression, unspecified depression type Social History Tobacco Use Types Packs/Day Years [...] Description 10/25/2025 11:00 AM EST Office Visit [facility] OPTOMETRY [address] [place] [address] Shellie Rose, OD 230 [place] [address] documented as of this encounter Goals Goal Patient Goal Type Associated Problems Recent Progress Patient-Stated? Author Blood Pressure < 140/90 Blood Pressure 146/90( 025 9:27 AM EST) No Piers-Gambl e, Zayra, PharmD Record your blood pressure once per day Blood Pressure No Piers-Gambl e, Zayra, PharmD documented as of this encounter Visit Diagnoses Diagnosis Depression, unspecified depression type documented in this encounter Additional Health Concerns Assessment Noted Time PHQ-9 Depression Total Score: 0 01/27/20 25 1:31 PM EDT documented as of this encounter Care Teams Director Of Research Relationship Specialty Start Date End Date Nilda Chew MD 230 [place] [address] PCP - General Family Medicine 08/06/12 Daryn Nair MD [address] [place] [address] Drive 3rd [place] [address] Cardiology 02/23/25 documented as of this encounter
--- OUTSIDE RECORDS SUMMARY | 2025-06-26 10:02 | XMS_ITS | Encounter Summary ---
Author Organization [employer] Address 75 [facility] 7 [place] [address] Care Team Providers Care Tobacco Sorter Name Role Phone Nilda Chew MD Primary Care Provider Zayra Cooley PharmD Unavailable [phone] Daryn Nair MD Unavailable Encounter Details Date Type Department Care Team (Late st Contact Info) Description 09/01/2022 Orders Only [facility] CHC MED & PEDS [address] [place], [place] [phone] Iwona Brandt LPN Social History Tobacco Use Types Packs/Day Years [...] Description 10/25/2025 11:00 AM EST Office Visit [facility] OPTOMETRY [address] [place], [place] [phone] Shellie Rose, OD [address] [place], [place] [phone] documented as of this encounter Visit Diagnoses Not on filedocumented in this encounter Care Teams Tobacco Sorter Relationship Specialty Start Date End Date Nilda Chew MD [address] [place] [address] PCP - General Family Medicine 08/06/12 Zayra Cooley, Evangelina [address] [place] [address] Pharmacist Internal Medicine 11/20/22 11/18/24 Daryn Nair MD [address] [place] [address] 3rd [place] [address] Cardiology 02/23/25 documented as of this encounter
--- OUTSIDE RECORDS SUMMARY | 2025-06-26 10:02 | XMS_ITS | Encounter Summary ---
Author Organization [employer] Address 75 [facility] 7 [place] [address] Care Team Providers Care Livestock Yard Supervisor Name Role Phone Nilda Chew MD Primary Care Provider [phone]- [phone] Zayra Cooley PharmD Unavailable Daryn Nair MD Unavailable Reason for Visit * Reason Onset Date Comments Referral 01/12/2023 Encounter Details Date Type Department Care Team (Late st Contact Info) Description 01/12/2023 Telephone [facility] MEDICINE 230 [place] [address] Nilda Chew MD 230 [place] [address] Referral Social History Tobacco Use Types Packs/Day [...] [facility]. Please contact pt at [phone] documented in this encounter Plan of Treatment Upcoming Encounters Date Type Department Care Team (Late st Contact Info) Description 10/25/2025 11:00 AM EST Office Visit [facility] OPTOMETRY [address] [place], [place] [phone] MiltonShellie jimenez, OD 230 [place] [address] documented as of this encounter Goals Goal [...] documented as of this encounter Care Teams Livestock Yard Supervisor Relationship Specialty Start Date End Date Nilda Chew MD 230 [place] [address] PCP - General Family Medicine 08/06/12 Zayra Cooley, PharmD 230 [place] [address] Pharmacist Internal Medicine 11/20/22 11/18/24 Daryn Nair MD [address] 3rd [place] [address] Cardiology 02/23/25 documented as of this encounter
--- OUTSIDE RECORDS SUMMARY | 2025-06-26 10:02 | XMS_ITS | Clinical Summary ---
Author Organization [employer] [facility] Address [address] [place] [address] Care Team Providers Care Casket Upholsterer Name Role Phone Unavailable Primary Care Provider [...] Last Done Comments Breast Cancer Screening 1960 Colorectal Cancer Screening: Colonoscopy 1958 DTaP,Tdap,and Td Vaccines (1 - Tdap) 1977 Pneumococcal Vaccine: 50+ Ye ars (1 of 1 - PCV) 2008 Zoster Vaccines (1 of 2) 2008 Falls Risk Assessment 09/22/2023 Hepatitis C Screening 09/22/2023 Osteoporosis Screening (Bone Density Screening) 09/22/2023 Social Influencers of Health Screening 09/22/2023 Depression Screening 08/24/2024 COVID-19 Vaccine (1 - 2023-2 5 season) 2025 Influenza Vaccine (#1) 2025 RSV Immunization Adult Patie nts (1 [...]
--- OUTSIDE RECORDS SUMMARY | 2025-06-26 10:02 | XMS_ITS | Encounter Summary ---
Author Organization [employer] Address 75 [facility] 7 [place] [address] Care Team Providers Care Data Visualization Developer Name Role Phone Nilda Chew MD Primary Care Provider [phone]- [phone] Zayra Cooley PharmD Unavailable Daryn Nair MD Unavailable Reason for Visit * Reason Comments Med Refill Encounter Details Date Type Department Care Team (Late st Contact Info) Description 01/31/2024 Refill [facility] MEDICINE 230 [place], [place] [phone] Nilda Chew MD 230 [place], [place] [phone] Dyslipidemia; Type 2 diabetes mellitus with hyperglycemia, without long-term current use of insulin ([facility]) Social History Tobacco Use Types Packs/Day Years Used Date Smoking Tobacco: Former Cigarettes Passive Smoke Exposure: Never Smokeless Tobacco: Never Depression Answer Date Recorded Patient Health Questionnaire-9 Score 4 11/25/2023 Patient Health Questionnaire-9 Score 4 11/25/2023 Last PHQ-9: Questionnaire Data Not on file 0 11/25/2023 Housing Stability Answer Date Recorded What is your housing situation today? I have ernie zambrano 11/25/[address] you li ve. Do you have problems with any of the following? None of the above 11/25/2023 Food Insecurity Answer Date Recorded Within the past 12 months, y ou worried that your food would run out before you got money to buy more: Never True 11/25/2023 Within the past 12 months,th e food you bought just didn't last and you didn't have enough money to get more: Never True 10/2023 Transportation Answer Date Recorded In the past 12 months, has l ack of transportation kept you from medical appts, meetings, work or from getting things needed for daily living? No 11/25/2023 Utilities Answer Date Recorded In the past 12 months, has t he electric, gas, oil or water company threatened to shut off services in your home? No 11/25/2023 Depression Answer Date Recorded Patient Health Questionnaire-2 Score 2 11/25/2023 Comments Unknown Sex and Gender Information Value [...] Description 10/25/2025 11:00 AM EST Office Visit [facility] OPTOMETRY [address] [place], [place] [phone] Shellie Rose, OD 230 [place] [address] documented as of this encounter Goals Goal Patient Goal Type Associated Problems Recent Progress Patient-Stated? Author Blood Pressure < 140/90 Blood Pressure 146/90( 025 9:27 AM EST) No Baldevs-Zayra Pereira, PharmD documented as of this encounter Visit Diagnoses Diagnosis Dyslipidemia Other and unspecified hyperlipidemia Type 2 diabetes mellitus with hyperglycemia, without long-term current use of insulin (HCC) documented in this encounter Additional Health Concerns Assessment Noted Time PHQ-9 Depression Total Score: 4 11/25/19 24 3:17 PM EDT documented as of this encounter Care Teams Data Visualization Developer Relationship Specialty Start Date End Date Nilda Chew MD 230 [place] [address] PCP - General Family Medicine 08/06/12 Zayra Cooley, Evangelina [address] [place] [address] Pharmacist Internal Medicine 11/20/22 11/18/24 Daryn Nair MD [address] [place] [address] 3rd [place] [address] Cardiology 02/23/25 documented as of this encounter
[2025-06-26 12:30] LABS: Alanine Aminotransferase 11 U/L (0-31); Albumin Level 3.9 g/dL (3.5-5.0); Alkaline Phosphatase 77 U/L (39-117); Anion Gap 11 (12-20); Aspartate Amino Transferase 21 U/L (5-31); Blood Urea Nitrogen 25 mg/dL (9-16); Calcium 9.0 mg/dL (8.4-10.2); Carbon Dioxide 27 mmol/L (22-29); Chloride 109 mmol/L (96-108); Cholesterol 166 mg/dL (<200); Estimated Glomerular Filt Rate 48; HDL Cholesterol 49 mg/dL (>40); Potassium 4.1 mmol/L (3.3-5.1); Sodium 143 mmol/L (135-145); Total Protein 7.3 g/dL (6.5-8.0); Triglycerides 69 mg/dL (<150)
[2025-06-26 12:38] LABS: Microalbum/Creatinine Ratio Ur 1765.2 ug/mg cr (<30)
== END 2025-06-26 09:05 | disposition home or self-care (01) ==
LOC: HO.HHCL 09:04
PROVIDERS: PCP Family Medicine; Visit Provider Family Medicine
DX: E11.65 Type 2 diabetes mellitus with hyperglycemia (principal)
CPT/HCPCS: 36415; 80048; 80061; 80076; 82043; 82570; 83036

== ENCOUNTER 2025-07-12 14:05 | Outpatient (AMB) | payer MEDICARE, MEDICAID, SELFPAY ==
--- NOTE | 2025-07-12 14:07 | HO.NEPHOV ---
Vital Signs 07/12/25 14:08 Height 5 ft Weight 270 lb BMI 52.7 BP 136/90 H Blood Pressure Location Lt radial Position Sitting Pulse 82 Pulse Source Pulse Oximeter Pulse Oximetry (%) 97 Oxygen Delivery Method Room Air Intake Visit Reasons: ENP: Albuminuria Quality Assurance Supervisor Chassis Required: No Quality Assurance Supervisor Chassis Services: Quality Assurance Supervisor Chassis Offered & Declined (Son will translate ) Accompanied by: Son Allergies No Known Allergies Allergy (Verified 07/12/25 14:10) Medication List - Last Reconciled 07/12/25 by Levi Ramirez MD albuterol sulfate 90 mcg/actuation (Ventolin HFA) 2 puffs inhalation Q4H PRN allopurinol 100 mg PO DAILY apixaban (Eliquis) 5 mg PO BID calcium carbonate-vitamin D3 600 mg-10 mcg (400 unit) 1 tab PO diltiazem HCl 60 mg PO BID metoprolol tartrate 100 mg PO BID rosuvastatin 20 mg PO DAILY sertraline 50 mg PO QAM valsartan 320 mg PO QAM HPI Comments Details: The patient is a 64-year-old female presenting for a nephrology consultation to evaluate her kidney function and proteinuria. She has a history of a CKD , history of obstructive uropathy and status post stent placement few years ago. Recent lab work from two weeks prior showed her kidney function was at 48%, which has been stable from a measurement taken two years ago. Serum creatinine is around 1.13 mg/dL and remains relatively stable The patient has a history of hypertension, which is reportedly under control with blood pressure readings around 120/72 mmHg to 136/90 mmHg. She is currently taking valsartan. She is considered to have borderline diabetes but takes no medication for it, and her recent blood sugar levels have been normal. The patient reports swelling in her legs but denies any trouble breathing, nausea, vomiting, or blood in the urine. She has experienced some recent weight loss. The patient reports no known drug allergies. [facility] Medical History Morbid obesity Persistent atrial fibrillation Hyperlipidemia HTN (hypertension) Surgical History Hx of tubal ligation History of section Family History Father HTN (hypertension) Mother Epilepsia Alzheimer disease Paternal Uncle HTN (hypertension) Sister HTN (hypertension) Social History Household Members: Spouse Housing: House Alcohol intake: former Patient Tobacco Use Status: Former Tobacco user Physical Exam Vital Signs: Last Vital Signs Pulse 82 07/12/25 14:08 BP 136/90 H 07/12/25 14:08 Pulse Ox 97 07/12/25 14:08 Oxygen Delivery Method Room Air 07/12/25 14:08 BMI result Body Mass Index 52.7 Results Reviewed Nephrology Results: Sodium, (135-145) 143 mmol/L 06/26/25 Potassium, (3.3-5.1) 4.1 mmol/L 06/26/25 Chloride, (96-108) 109 mmol/L H 06/26/25 Carbon Dioxide, (22-29) 27 mmol/L 06/26/25 BUN, (9-16) 25 mg/dL H 06/26/25 Creatinine, (0.5-1.4) 1.13 mg/dL 06/26/25 Calcium, (8.4-10.2) 9.0 mg/dL 06/26/25 Urine Creatinine 79.31 mg/dL 06/26/25 Assessment & Plan Assessment & Plan (1) Chronic kidney disease: Code(s): N18.9 - Chronic kidney disease, unspecified Category: Medical (2) Essential (primary) hypertension: Code(s): I10 - Essential (primary) hypertension Category: Medical Plan Proteinuria, and Chronic Kidney Disease stage III -in the setting of Hypertension and obesity - The patient's kidney function is at 48%, which has been stable for the past two years. Proteinuria most likely due to combination of obesity and hypertension. - The goal is to maintain the current kidney function and prevent further decline. - Diabetes is an unlikely cause of the proteinuria given her normal blood sugars. - Blood pressure is reasonably controlled - Ordered blood and urine tests to investigate the cause of the proteinuria. - An ultrasound of the kidneys will be scheduled. Serological workup has been ordered. - Continue all current medications without changes, specifically noting that valsartan is beneficial for reducing proteinuria and controlling blood pressure. - The patient was advised to follow a low-salt diet and drink plenty of water. - The patient was counseled to avoid all NSAIDs, including Aleve, Advil, Motrin, naprosyn, and ibuprofen, as they can negatively affect kidney function, especially with valsartan. - Tylenol is considered safe for use. - A follow-up appointment is scheduled in three weeks to review the results. Based on results of the serological tests and workup she might require a kidney biopsy for definite diagnosis Orders: Orders US renal BI Today N18.9 - Chronic kidney disease, unspecified BUD Reflex Titer and Pattern Today I10 - Essential (primary) hypertension, N18.9 - Chronic kidney disease, unspecified UA and rflx microscopic Today I10 - Essential (primary) hypertension, N18.9 - Chronic kidney disease, unspecified Neutrophil Cytoplasma Ab Today I10 - Essential (primary) hypertension, N18.9 - Chronic kidney disease, unspecified Complement C3 Today I10 - Essential (primary) hypertension, N18.9 - Chronic kidney disease, unspecified Complement C4 Today I10 - Essential (primary) hypertension, N18.9 - Chronic kidney disease, unspecified Protein Electrophoresis, Serum Today I10 - Essential (primary) hypertension, N18.9 - Chronic kidney disease, unspecified Phospholipase A2 Receptor Pnl Today I10 - Essential (primary) hypertension, N18.9 - Chronic kidney disease, unspecified Creatinine Urine Today I10 - Essential (primary) hypertension, N18.9 - Chronic kidney disease, unspecified Total Protein Urine Random Today I10 - Essential (primary) hypertension, N18.9 - Chronic kidney disease, unspecified Patient Instructions: - Please get the blood and urine tests done today at the lab here in the clinic. - Someone will call you to schedule an ultrasound of your kidneys. - Continue taking all of your medications as prescribed. Do not make any changes. - Follow a diet with less salt and make sure to drink plenty of water. - Do not take pain medicines like Aleve, Advil, Motrin, or ibuprofen. You can take Tylenol if needed. - Please return for a follow-up visit in about 3 weeks to go over your test results. Coding Level of Care Code New Pt Level 4 (24485) Diagnoses Chronic kidney disease N18.9 Essential (primary) hypertension I10
[2025-07-12 14:08] VITALS: BP 136/90; PULSE 82; O2SAT 97; BMI 52.7
--- OUTSIDE RECORDS SUMMARY | 2025-07-13 02:26 | XMS_ITS | Encounter Summary ---
Author Organization [employer] Address 75 [facility] 7 [place] [address] Care Team Providers Care Optics Manufacturing Technician Name Role Phone Nilda Chew MD Primary Care Provider [phone]- [phone] Zayra Cooley PharmD Unavailable Daryn Nair MD Unavailable Reason for Visit * Reason Onset Date Comments Referral 01/12/2023 Encounter Details Date Type Department Care Team (Late st Contact Info) Description 01/12/2023 Telephone [facility] MEDICINE [address] [place] [address] Nilda Chew MD [address] [place] [address] Referral Social History Tobacco Use [...] eye vision center. Please contact pt at [phone] documented in this encounter Plan of Treatment Upcoming Encounters Date Type Department Care Team (Late st Contact Info) Description 09/06/2025 2:15 PM EST Office Visit [facility] MEDICINE [address] [place] [address] Nilda Chew MD [address] [place] [address] 10/25/2025 11:00 AM EST Office Visit [facility] OPTOMETRY [address] [place] [address] Milton, Shellie, OD [address] [place] [address] documented as of this encounter Goals Goal [...] documented as of this encounter Care Teams Optics Manufacturing Technician Relationship Specialty Start Date End Date Nilda Chew MD [address] [place] [address] PCP - General Family Medicine 08/06/12 Zayra Cooley, PharmD [address] [place] [address] Pharmacist Internal Medicine 11/20/22 11/18/24 Daryn Nair MD [address] [place] [address] 3rd [place] [address] Cardiology 02/23/25 documented as of this encounter
--- OUTSIDE RECORDS SUMMARY | 2025-07-13 02:27 | XMS_ITS | Encounter Summary ---
Author Organization [employer] Address [address] [place] [address] 7 [place] [address] Care Team Providers Care Linux System Engineer Name Role Phone Nilda Chew MD Primary Care Provider +1- [phone] Zayra Cooley PharmD Unavailable Daryn Nair MD Unavailable Encounter Details Date Type Department Care Team (Late st Contact Info) Description 10/21/2022 Abstract [facility] MEDICINE [address] [place] [address] [phone] Nilda Chew MD [address] [place] [address] [phone] Social History Tobacco Use Types Packs/Day Years [...] Description 09/06/2025 2:15 PM EST Office Visit [facility] MEDICINE 230 [place], [place] [phone] Nilda Chew MD 230 [place] [address] 10/25/2025 11:00 AM EST Office Visit [facility] OPTOMETRY [address] [place] [address] Shellie Rose, OD 230 [place] [address] documented as of this encounter Procedures Procedure Name Priority Date/Time Associated Diagnosis Comments MAMMOGRAPHY Routine 09/06/2019 PAP SMEAR Routine 12/22/2016 12:00 AM EDT COLONOSCOPY Routine 10/23/2011 documented in this encounter Results * Mammography (09/06/2019) Mammogram BIRADS 1 Anatomical Region Laterality Modality Other Historical Provider HEALTH MAINTENANCE Final Result * Pap Smear (12/22/2016 12:00 AM EDT) Swab [facility] Provider LAB CYTOLOGY ORDERABLES F inal Result IMAGING * Colonoscopy (10/23/2011) Colonoscopy Dr. Abbasi Historical Provider HEALTH MAINTENANCE Final Result documented in this encounter Visit Diagnoses Not on filedocumented in this encounter Care Teams Linux System Engineer Relationship Specialty Start Date End Date Nilda Chew MD [address] [place] [address] PCP - General Family Medicine 08/06/12 Zayra Cooley, Maria LuisaD [address] [place] [address] Pharmacist Internal Medicine 11/20/22 11/18/24 Daryn Nair MD [address] 3rd [place] [address] Cardiology 02/23/25 documented as of this encounter
--- OUTSIDE RECORDS SUMMARY | 2025-07-13 02:27 | XMS_ITS | Encounter Summary ---
Author Organization [employer] Address 75 [facility] 7 [place] [address] Care Team Providers Care Licensed Nurse Practitioner Name Role Phone Nilda Chew MD Primary Care Provider +- [phone] Zayra Cooley PharmD Unavailable Daryn Nair MD Unavailable [phone] Reason for Visit * Reason Comments Med Refill Encounter Details Date Type Department Care Team (Late st Contact Info) Description 06/24/2023 Refill [facility] MEDICINE [address] [place], [place] [phone] Nilda Chew MD 230 [place], [place] [phone] Social History Tobacco Use Types Packs/Day Years [...] Description 09/06/2025 2:15 PM EST Office Visit [facility] MEDICINE [address] [place] [address] Nilda Chew MD 230 [place] [address] 10/25/2025 11:00 AM EST Office Visit [facility] OPTOMETRY [address] [place] [address] Milton, Shellie, OD 230 [place] [address] documented as of this encounter Goals Goal [...] documented as of this encounter Care Teams Licensed Nurse Practitioner Relationship Specialty Start Date End Date Nilda Chew MD [address] [place] [address] PCP - General Family Medicine 08/06/12 Zayra Cooley, Maria LuisaD [address] [place] [address] Pharmacist Internal Medicine 11/20/22 11/18/24 Daryn Nair MD [address] [place] [address] 3rd [place] [address] Cardiology 02/23/25 documented as of this encounter
--- OUTSIDE RECORDS SUMMARY | 2025-07-13 02:27 | XMS_ITS | Encounter Summary ---
Author Organization [employer] Address 75 [facility] [address] [place] [address] Care Team Providers Care Dye Mixer Name Role Phone Nilda Chew MD Primary Care Provider Zayra Cooley PharmD Unavailable Daryn Nair MD Unavailable Encounter Details Date Type Department Care Team (Late st Contact Info) Description 09/01/2022 Orders Only [facility] CHC MED & PEDS [address] [place] [address] Iwona Brandt LPN Social History Tobacco Use [...] Description 09/06/2025 2:15 PM EST Office Visit [facility] MEDICINE 230 [place], [place] [phone] Nilda Chew MD 230 [place] [address] 10/25/2025 11:00 AM EST Office Visit [facility] OPTOMETRY [address] [place] [address] Shellie Rose OD [address] [place] [address] documented as of this encounter Visit Diagnoses Not on filedocumented in this encounter Care Teams Dye Mixer Relationship Specialty Start Date End Date Nilda Chew MD 230 [place] [address] PCP - General Family Medicine 08/06/12 Zayra Cooley, Maria LuisaD [address] [place] [address] Pharmacist Internal Medicine 11/20/22 11/18/24 Daryn Nair MD [address] [place] [address] Drive 3rd [place] [address] Cardiology 02/23/25 documented as of this encounter
--- OUTSIDE RECORDS SUMMARY | 2025-07-13 02:27 | XMS_ITS | Clinical Summary ---
Author Organization [employer] Address [address] [facility] [facility] 7 [place] [address] Care Team Providers Care Training Development Specialist Name Role Phone Nilda Chew MD Primary Care Provider [phone] Daryn Nair MD Unavailable [phone] Allergies No known active allergies Medications allopurinol (Zyloprim) 100 MG tabletIndicatio ns:History of gout TAKE 1 TABLET BY MOUTH TWICE DAILY IN THE MORNING AND IN THE EVENING 180 tablet 3 08/18/20 24 Active apixaban (Eliquis) 5 MG tabletIndicatio ns:Paroxysmal atrial fibrillation (CMS/HCC) (HCC) Take 1 tablet (5 mg) by mouth 2 times daily. 180 tablet 3 08/18/20 24 Active metoprolol tartrate (Lopressor) 100 MG tabletIndicatio ns:Paroxysmal atrial fibrillation (CMS/HCC) (HCC) Take 100 mg by mouth 2 times daily. Active rosuvastatin (Crestor) 20 MG tabletIndicatio ns:Dyslipidemia ,Type 2 diabetes mellitus with hyperglycemia, without long-term current use of insulin (HCC) TAKE 1 TABLET BY MOUTH EVERY EVENING 60 tablet 5 12/30/19 25 Active Calcium Carb-Cholecalci ferol 600-10 MG-MCG tabletIndicatio ns:Adequate nutrition TAKE 1 TABLET BY MOUTH TWICE DAILY IN THE MORNING AND IN THE EVENING 180 tablet 03/28/20 25 Active dilTIAZem SR (Cardizem SR) 60 MG 12 hr capsuleIndicati ons:Paroxysmal atrial fibrillation (CMS/HCC) (HCC) TAKE 1 CAPSULE BY MOUTH TWICE DAILY IN THE MORNING AND IN THE EVENING 120 capsule 2 05/01/20 25 Active Ventolin HFA 108 (90 Base) MCG/ACT inhaler inhale 2 puffs by mouth every 4 hours as needed for wheezing or shortness of breath 05/31/20 25 Active sertraline (Zoloft) 50 MG tabletIndicatio ns:Depression, unspecified depression type TAKE 1 TABLET BY MOUTH EVERY MORNING 90 tablet 3 06/26/20 25 Active Emollient (eucerin) lotionIndicatio ns:Dry skin Apply topically if needed for dry skin. 240 mL 3 06/26/20 25 026 Active valsartan (Diovan) 320 MG tabletIndicatio ns:Primary hypertension TAKE 1 TABLET BY MOUTH ONCE DAILY 90 tablet 3 06/27/20 25 Active valsartan (Diovan) 320 MG tabletIndicatio ns:Primary hypertension TAKE 1 TABLET BY MOUTH ONCE DAILY 90 tablet 04/22/20 24 025 Discontinued(Re order (will not trigger notification to Pharmacy)) sertraline (Zoloft) 50 MG tabletIndicatio ns:Depression, unspecified depression type TAKE 1 TABLET BY MOUTH EVERY MORNING 30 tablet 3 03/08/20 25 025 Discontinued Active Problems Patient Care Coordination No te Formatting of this note migh t be different from the original. 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 weekly with [facility] [phone] Problem Noted Date Diagnosed Date Preoperative examination 01/26/2025 Assessment & Plan (01/26/2025 1:40 PM EDT): Patient is here for a preoperative exam Patient is scheduled for: Cataracts Right Eye Date of Surgery: 02/02/25 Type of anesthesia: MAC Lab needed: No EKG: No Surgeon's name: Mehul Conde Facility name: [facility] Surgeon's office number: [phone] ext [phone] Surgeon's office fax number: [phone] After careful review of patient's most recent [...] sleep apnea 12/29/2023 Overview (12/29/2023): Followed by mmi teacher, Dr. Anderson. Sleep study 06/10/23 noted moderately severe ELENI with total sleep time AHI 17. CPAP was ordered but she was not compliant -sleep study reordered by Dr. Anderson 12/29/23 to assist in insurance cover as pt very symptomatic Assessment & Plan (08/31/2024 2:49 PM EST): Followed by mmi teacher, Dr. Anderson. Sleep study 06/10/23 noted moderately severe ELENI with total sleep time AHI 17. CPAP was ordered but she was not compliant -sleep study reordered by Dr. Anderson 12/29/23 to assist in insurance cover as pt very symptomatic Other specified health status 03/25/2023 Overview (08/31/2024): -next comprehensive annual evaluation due after 08/31/25 -eye care facilitated by [facility], referral done 01/12/2023. -dental home is [place]. -Health care proxy filed 11/25/2023 Assessment & Plan (08/31/2024 2:46 PM EST): -next comprehensive annual evaluation due after 08/31/25 -eye care facilitated by [facility], referral done 01/12/2023. -dental home is [place]. -Health care proxy filed 11/25/2023 Assessment & Plan (11/25/2023 3:45 PM EDT): -next physical exam due after 03/25/2024. -eye care facilitated by [facility], referral done 01/12/2023. -dental home is [place]. -Health care proxy filed 11/25/2023 Assessment & Plan (03/25/2023 3:45 PM EDT): -next physical exam due after 03/25/2024. -eye care facilitated by [facility], referral done 01/12/2023. -dental home is [place]. Right knee pain 03/25/2023 Overview (03/25/2023): Referral [...] to medical records to requst a a SHOP MANAGER. Assessment & Plan (03/25/2023 2:23 PM EDT): Pt is going to medical records to requst a a SHOP MANAGER. Assessment & Plan (12/25/2022 3:32 PM EDT): Pt is going to medical records to requst a a SHOP MANAGER. Paroxysmal atrial fibrillation (CMS/HCC) 023 Overview (02/23/2025): Diagnosed on 02/12/22 when she reported SOB on her routine visit, irregular heart beat found on exam. Because of obesity, noncompliance with CPAP, treated by rate control only. -EKG on 02/12/22 shows A FIB -[id number] 3. -Eliquis 5mg PO BID started 02/12/2022 -Currently rate controlled on beta licha Metoprolol 50mg BID also on Amlodipine 5mg, Valsartan 320 daily, diltiazem 60mg -Followed by Dr. Daryn Nair of [facility], note from 02/21/25 reviewed, Clinically, she has got no symptoms. Continue diltiazem/metoprolol. Continue anticoagulation. -Echocardiogram-LVEF > 70%. No significant valvular issues. -Holter-well controlled atrial fibrillation with an average rate of 67/Min. -She does have a h/o bradycardia with increasing her betablocker. Assessment & Plan (01/26/2025 1:55 PM EDT): Pt with Kely, cataract surgery is considered a low bleeding [...] exam. -EKG on 02/12/22 shows A FIB -[id number] 3. - Eliquis 5mg PO BID started 02/12/2022 -Currently rate controlled on beta licha Metoprolol 50mg BID also on Amlodipine 5mg, Valsartan 320 daily, diltiazem 60mg -Followed by Dr. Daryn Nair of [facility], note from 01/07/24 reviewed, Holtor monitor ordered before 6 month follow up -She does have a h/o bradycardia with increasing her betablocker. Assessment & Plan (03/25/2023 2:23 PM EDT): Diagnosed on 02/12/22 when she reported SOB on her routine visit, irregular heart beat found on exam. -EKG on 02/12/22 shows A FIB -[id number] 3. - Eliquis 5mg PO BID started [...] exam. -EKG on 02/12/22 shows A FIB -[id number] 3. - Eliquis 5mg PO BID started [...] longer bleeding. -She was referred to a Refrigerating Oiler but they were not able to get [...] (severe) obesity due to excess calories ( [facility]) 03/25/2022 Cyst of kidney, acquired 03/12/2022 Overview [...] EST): Well controlled on albuterol prn alone. Recurrent major depressive disorder, in partial remission 11/18/2021 Renal calculus 07/12/2021 Stage 3a chronic kidney disease (CMS/HCC) 2011 Overview (06/28/2025): Lab Results Component Value Date CREATININE 1.13 06/26/2025 CREATININE 1.14 03/18/2023 EGFR 48 06/26/2025 EGFR 48 03/18/2023 MICROALBCREU 1,765.2 (H) 06/26/2025 -PT thought she had nepthrology but it [...] , notes requested 03/31/22. Hypertension 07/07/2012 Overview (06/26/2025): Well controlled at home. She did not take her meds today because she thought she needed to skip them for fasting labs. -Graduated from [employer] program 11/18/24 -continue Valsartan 320mg once daily -continue Metoprolol tartrate 100mg bid -continue Diltiazem ER 120mg once daily decreased to 60mg 01/06/24 due to bradycardia Assessment & Plan (06/26/2025 11:31 AM EST): Well controlled at home. She did not take her meds today because she thought she needed to skip them for fasting labs. -Graduated from [employer] program 11/18/24 -continue Valsartan 320mg once daily -continue Metoprolol tartrate 100mg bid -continue Diltiazem ER 120mg once daily decreased to 60mg 01/06/24 due to bradycardia Assessment & Plan (08/31/2024 2:49 PM EST): [...] f/u with cardiology. Type 2 diabetes mellitus wit h diabetic microalbuminuria, without long-term current use of insulin 04/20/2012 Overview (06/27/2025): Diabetes is controlled. Lab Results Component Value Date HGBA1C 5.7 06/26/2025 HGBA1C 5.7 01/26/2025 HGBA1C 5.6 08/31/2024 Lab Results Component Value Date CREATININE 1.13 06/26/2025 EGFR 48 06/26/2025 MICROALBCREU 1,765.2 (H) 06/26/2025 LDLCHOLCAL 104 (H) 06/26/2025 -Abdoulaye/Arb:valsartan 320mg -Statin therapy: Atorvastatin 40mg daily. [...] 03/25/2022 08/18/2024 Stage 3a chronic kidney disease ([facility]/HCC) 03/17/2022 10/30/2022 Hydronephrosis 03/12/2022 08/18/2024 Other proteinuria 03/12/2022 08/18/2024 Gout 03/12/2022 08/18/2024 Thoracic back pain 03/12/2016 Encounters Date Type Department Care Team Description 06/28/2025 Orders Only [facility] [address] [place] [phone] Nilda Chew MD Albuminuria (Primary Dx); Type 2 diabetes mellitus with diabetic microalbuminuria, without long-term current use of insulin ([facility]); Stage 3a chronic kidney disease ([facility]) (HCC) 06/27/2025 Orders Only [facility] [address] [place] [phone] Nilda Chew MD Primary hypertension 06/27/2025 Telephone [facility] [address] [place] [phone] Nilda Chew MD 06/27/2025 [facility] [address] [place] [address] Nilda Chew MD Primary hypertension 06/27/2025 Telephone [facility] [address] [place] [address] Nilda Chew MD Results; Appointment Confirmation 06/27/[address] [address] Nilda Chew MD Medication Question 06/26/2025 9:45 AM EST Office Visit [address] [address] Nilda Chew MD Primary hypertension (Primary Dx); Dry skin; Encounter for immunization; Encounter for vaccination; Screening for colon cancer 06/26/2025 Travel 06/24/[address] [place] [address] Nilda Chew MD Depression, unspecified depression type 06/23/2025 Telephone [facility] [address] [place] [phone] Nilda Chew MD chartprep 06/23/2025 Telephone [facility] [address] [place] [phone] Nilda Chew MD blood work before the appt 06/22/2025 Telephone [facility] [address] [place] [phone] Nilda Chew MD 06/19/2025 1:00 PM EDT Office Visit [facility] [address] [place] [address] Shellie Rose, OD Glaucoma 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 (Primary Dx); Pseudophakia of both eyes 06/19/2025 Travel 05/16/2025 Telephone [facility] [address] [place] [address] Shellie Rose, OD 05/10/2025 9:15 AM EDT Office Visit [facility] [address] [place] [address] Shellie Rose, OD Presbyopia (Primary Dx) 05/10/2025 Travel 04/29/2025 Refill [facility] [address] [place] [address] Nilda Chew MD Paroxysmal atrial fibrillation ([facility]) from Last 3 Months Immunizations Immunization Administration Dates Next Due Hep B, adult 04/20/2012,05/29/2010,05/07/2010 Influenza Injectable Quadriv alant Preservative Free IIV4 MDCK 06/24/2023 Influenza injectable quadriv alent IIV4 with preservative 06/01/2017,07/11/2015 Influenza injectable quadriv alent preservative free 06/12/2022,05/31/2021 Influenza, High Dose Seasona l, Preservative Free 06/26/2025,08/31/2024,08/18/2019 Influenza, IIV3, injectable 05/12/2014, 1 Influenza, Split (incl. helen f[place] surface antigen) 06/17/2013,04/20/2012 Pfizer Covid-19 Vaccine 12+ 06/26/2025,0 08/31/2024,11/25/2023,06/03,05/13/2021 Pfizer Covid-19 Vaccine 12+ Bivalent 12/25/2022 Pneumococcal [...] Description 09/06/2025 2:15 PM EST Office Visit [facility] [address] [place] [address] Nilda Chew MD [address] [place] [address] 10/25/2025 11:00 AM EST Office Visit [facility] [address] [place] [address] MiltonShellie jimenez, OD [address] [place] [address] Health Maintenance Due Date Last Done Comments CT Colonography 1960 FIT DNA/Cologuard 1960 FIT 1960 FOBT 1960 Sigmoidoscopy 1960 Colonoscopy 10/22/2021 10/23/2011 Colorectal Cancer Screening 10/22/2021 COVID-19 Vaccine ( season) 2025 06/26/2025, 08/31/2024, 11/25/2023, Additional history exists Diabetes: Hemoglobin A1C 12/24/2025 025, 01/26/2025, 08/31/2024, Additional history exists Depression Screening 01/26/2026 01/26/2025, 01/27/20 SDOH Screening 01/26/2026 01/26/2025 Alcohol/Substance Use Screening 06/26/2026 06/26/2025 Diabetes: Foot Exam 06/26/2026 06/26/2025, 06/26/2025, 06/26/2025, Additional history exists Diabetes: Urine Protein Screening 06/26/2026 06/26/2025, 05/31/2021, 08/08/2020 Lipid Panel 06/26/2026 06/26/2025, 072 01/2023, 08/08/2020 Tobacco Screening 06/26/2026 06/26/2025 Eye Exam 07/29/2026 07/29/2024, 12/0 01/2024, 07/29/2024, Additional history exists Mammogram 08/04/2026 08/04/2024, 08/0 10/2021, 09/06/2019, Additional history exists DTaP/Tdap/Td Vaccines [...] Aged 60 years or older Completed 12/02/2024 Influenza Vaccine Completed 06/26/2025, , 06/24/2023, Additional history exists HIB Vaccines Aged Out No longer eligi [...] day Blood Pressure No Zayra Schneider PharmD Procedures Procedure Name Priority Date/Time Associated Diagnosis Comments BASIC METABOLIC PANEL Routine 06/26/2025 9:09 AM EST Type 2 diabetes mellitus with hyperglycemia, without long-term current use of insulin (HCC) HEMOGLOBIN A1C Routine 06/26/2025 9:09 AM EST Type 2 diabetes mellitus with hyperglycemia, without long-term current use of insulin (HCC) LIPID PANEL, STANDARD Routine 06/26/2025 9:09 AM EST Type 2 diabetes mellitus with hyperglycemia, without long-term current use of insulin (HCC) HEPATIC FUNCTION PANEL Routine 9:09 AM EST Type 2 diabetes mellitus with hyperglycemia, without long-term current use of insulin (HCC) ALBUMIN, RANDOM URINE W/CREATININE Routine 06/26/2025 9:09 AM EST Type 2 diabetes mellitus with hyperglycemia, without long-term current use of insulin (HCC) AUTOMATED VISUAL FIELD, EXTENDED - OU - BOTH EYES Routine 06/19/2025 2:48 PM EDT Glaucoma 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 BI MAMMOGRAM SCREENING TOMOSYNTHESIS BILATERAL Routine 08/04/2024 1:45 PM EST Screening mammogram for breast cancer HEPATITIS C ANTIBODY REFLEX Routine 03/18/2023 9:30 AM EDT ZZZ HISTORICAL HPV E6/E7 RFLX ROBERTA 16 18/45 Routine 03/18/2022 8:56 AM EDT PAP SMEAR Routine 12/22/2016 12:00 AM EDT HM COLONOSCOPY Routine 10/23/2011 from Last 3 Months or Most Recently Relevant to Health Maintenance Results * (ABNORMAL) Albumin, Random Urine W/Creatinine (06/26/2025 9:09 AM EST) Creatinine, Urine 79.31 mg/dL [facility] Microalbumin Urine 1,400.0 mg/L [facility] Microalbum Creatinine Ratio Ur 1,765.2(H ) <30 ug/mg cr LABS Comment:Albumin/Creatinine R atio Reference Ranges: Normal: < 30 ug/mg creatinine Microalbuminuria: 30 - 300 ug/mg creatinineClinical Albuminuria: > 300 ug/mg creatinine Urine 06/26/2025 9:09 AM EST 06/26/2025 11:12 AM EST us Nilda Chew MD LAB URINE ORDERABLES Final Result LABS [address] [place] [phone] * Hemoglobin A1c (06/26/2025 9:09 AM EST) Hemoglobin A1c 5.7 <6.0 % [facility] Comment:Hemoglobin A1C Refer ence Range Adults: 4.8 - 6.0 % Non diabetic: < 6.0 % Goal: < 7.0 %Additional Action Suggested: > 8.0 %Note: Hemoglobin A1c results are invalid for patients with abnormal amounts of HbF. Blood transfusions may impact the HbA1c concentration in the patient sample. Estimated Average Glucose 117 mg/dL LABS Comment:eAG = Estimated ave rage glucose which is %A1C expressed asaverage glucose, using the formula of the [id number] Glucose study (ADAG), Diabetes Care, Vol.31,#8,Mar. 2007 Blood Venous blood specimen / Unknown 06/26/2025 9:09 AM EST 06/26/2025 11:27 AM EST Nilda Chew MD LAB BLOOD ORDERABLES Final Result Performing Organization Address [facility] Co de Phone Number LABS [address] [place] [address] [phone] * Hepatic Function Panel (06/26/2025 9:09 AM EST) Bilirubin, Total 0.5 0.0 - 1.0 mg/dL LABS Bilirubin, Direct 0.2 0.0 - 0.5 mg/dL LAB[facility] Aspartate Amino Transferase 21 5 - 31 U/L LABS Alanine Aminotransferase 11 0 - 31 U/L LAB[facility] Total Protein 7.3 6.5 - 8.0 g/dL LABS Albumin Level 3.9 3.5 - 5.0 g/dL LAB[facility] Alkaline Phosphatase 77 39 - 117 U/L LABS Blood Venous blood specimen / Unknown 06/26/2025 9:09 AM EST 06/26/2025 11:27 AM EST Nilda Chew MD LAB BLOOD ORDERABLES Final Result Performing Organization Address [facility] Co sc Phone Number LABS [address] [place] [address] [phone] * (ABNORMAL) Lipid Panel, Standard (06/26/2025 9:09 AM EST) Triglycerides 69 <150 mg/dL [facility] Comment:Desirable Triglyceri de: less than 150 mg/dLBorderline High Triglyceride 150-199 mg/dLHigh Triglyceride: 200-499 mg/dLVery High Triglyceride: greater than or equal to 5OO mg/dL Cholesterol 166 <200 mg/dL LABS Comment:Desirable Cholestero l: less than 200 mg/dLBorderline High Cholesterol: 200-239 mg/dLHigh Cholesterol: greater than 239 mg/dL LDL Cholesterol Calculated 104(H) <100 mg/dL LABS Comment:Desirable LDL: less than 100 mg/dLNear Optimal/Above Optimal LDL: 110- 129 mg/dLBorderline High LDL: 130-159 mg/dLHigh LDL: 160-189 mg/dLVery High LDL: greater than or equal to 190 mg/dL HDL Cholesterol 49 >40 mg/dL [facility] Comment:Desirable HDL: great er than 40 mg/dL Note: This HDL assay may give artificially low results in patients with liver disease. Blood Venous blood specimen / Unknown 06/26/2025 9:09 AM EST 06/26/2025 11:27 AM EST us Nilda Chew MD LAB BLOOD ORDERABLES Final Result [facility] [address] [place] [address] [phone] * (ABNORMAL) Basic Metabolic Panel (06/26/2025 9:09 AM EST) Sodium 143 135 - 145 mmol/L LABS Potassium 4.1 3.3 - 5.1 mmol/L LABS Chloride 109(H) 96 - 108 mmol/L LABS Carbon Dioxide 27 22 - 29 mmol/L LABS Anion Gap 11(L) 12 - 20 LABS Urea Nitrogen (BUN) 25(H) 9 - 16 mg/dL LABS Creatinine, Serum 1.13 0.5 - 1.4 mg/dL LABS Estimated Glomerular Filt Rate 48 LABS Comment:Chronic Kidney Disea se: Estimated GFR < 60 mL/min/1.94z5Knkvjo Kidney Disease: Estimated GFR < 15 mL/min/1.73m2 Glucose 98 60 - 115 mg/dL LABS Calcium 9.0 8.4 - 10.2 mg/dL [facility] Blood Venous blood specimen / Unknown 06/26/2025 9:09 AM EST 06/26/2025 11:27 AM EST Nilda Chew MD LAB BLOOD ORDERABLES Final Result LABS [address] [place] [address] [phone] * Automated Visual Field, Extended - OU [...] repeat visual field test following that exam. us Shellie Rose OD OPHTH VISUAL FIELD Final Resu lt * BI Mammogram Screening Tomosynthesis Bilateral (08/04/2024 1:45 PM EST) Anatomical Region Laterality Modality Breast Bilateral Mammography 08/04/2024 1:45 PM EST Narrative 08/11/2024 2:53 PM EST [address] [place] [address] Mammography Report Signed Patient: Kavita Gil MR#: [id number] : 1960 Acct:[id number] Age/Sex: 64 / F ADM Date: 08/04/24 Loc: HO.MAMMO Attending Dr: Nilda Chew MD Ordering Physician: Nilda Chew MD Results: 1N egative Date of Service: 08/04/24 Follow Up: 1 Year From Orig inal Mammogram Procedure(s): MM tomosynthesis screening BI Accession Number(s): [id number] cc: Nilda Chew MD EXAMINATION: MM SCREENING [...] 08/11/24 1450 DD/ 1345 TD/TT: 08/04/24 1400 Community Nutrition Educator: Procedure Note Donotuseinterpreter, Image - 08/11/[address] [place] [address] Mammography Report Signed Patient: Kavita Gil MMR#: [id number] : 8Acct:[id number] Age/Sex: 64 / FADM Date: 08/04/24 Loc: HO.MAMMO Attending Dr: Nilda Chew MD Ordering Physician: Nilda Chew MDResults: 1N egative Date of Service: 08/04/24Follow Up: 1 Year From Orig inal Mammogram Procedure(s): MM tomosynthesis screening BI Accession Number(s): [id number] cc: Nilda Chew MD EXAMINATION: MM SCREENING [...] by: Naomi Galloway DO 08/11/2024 02:50 PM [facility] Dictated By: Naomi Galloway DO Signed By: <Electronically signed by Naomi Galloway DO in OV> 08/11/24 1450 DD/ 1345 TD/TT: 08/04/24 1400 Community Nutrition Educator: us Nilda Chew MD IMG BI PROCEDURES Final Re sult * Hepatitis C Antibody Reflex (03/18/2023 9:30 AM EDT) Hepatitis C Antibody Nonreactive Nonreactive LABS Comment:Antibodies to HCV no t detected; does not exclude early acuteHCV infection. 03/18/2023 9:30 AM EDT 03/18/2023 11:24 AM EDT Nilda Chew MD LAB BLOOD ORDERABLES Final Result Performing Organization Address [facility]/ZIP Co de Phone Number LABS [address] [place] [address] [phone] * HPV E6/E7 RFLX ROBERTA 16 18/45 (03/18/2022 8:56 AM EDT) HPV 16 RNA [facility] HPV 18/45 RNA [facility] HPV E6 E7 ADD [facility] HPV mRNA E6/E7 rflx Not Detected Not Detected [facility] Comment: Methodology: Material Clerk-Mediated Amplification This assay detects E6/E7 viral messenger RNA (mRNA) from 14 high-risk HPV types (16,18,31,33,35,39,45,51,52,56,58,59,66,68). Cervical sources are required for HPV testing. If a vaginal source from a patient who has had a total hysterectomy with removal of cervix was submitted, please contact the testing laboratory for alternative testing options. For additional information, please refer to http://education.Free & Clear/faq/QNX637n6 (This link if provided for information/ educational purposes only.) THIS TEST WAS PERFORMED AT: [facility] [address] [place] [address] [address]LO[address],[place] [address] ATA BLAND MD 03/18/2022 8:56 AM EDT Peng Garcia MD HISTORICAL/NON ORDERABLE LABS Fi nal Result Performing Organization Address City/[facility]/ZIP Co de Phone Number [facility] [address] * Pap Smear (12/22/2016 12:00 AM EDT) Swab Historical Provider LAB CYTOLOGY ORDERABLES F inal Result IMAGING * Hm Colonoscopy (10/23/2011) Colonoscopy Dr. 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
--- OUTSIDE RECORDS SUMMARY | 2025-07-13 02:27 | XMS_ITS | Encounter Summary ---
Author Organization [employer] Address 75 [facility] 7 [place] [address] Care Team Providers Care Land Clearer Name Role Phone Nilda Chew MD Primary Care Provider [phone]- [phone] Daryn Nair MD Unavailable [phone] Reason for Visit * Reason Comments Med Refill Encounter Details Date Type Department Care Team (Late st Contact Info) Description 06/27/2025 Refill [facility] WALK-IN CENTER [address] [place] [address] [phone] Nilda Chew MD [address] [place], [place] [phone] Primary hypertension Social History Tobacco Use Types Packs/Day Years [...] Description 09/06/2025 2:15 PM EST Office Visit [facility] MEDICINE [address] [place] [address] Nilda Chew MD [address] [place] [address] 10/25/2025 11:00 AM EST Office Visit [facility] OPTOMETRY [address] [place] [address] Shellie Rose, CATHLEEN [address] [place] [address] documented as of this encounter Goals Goal Patient Goal Type Associated Problems Recent Progress Patient-Stated? Author Blood Pressure < 140/90 Blood Pressure 146/90( 025 9:27 AM EST) No Piers-Gambl Zayra alfonso, PharmD Record your blood pressure once per day Blood Pressure No Baldevs-Gambl Zayra alfonso, PharmD documented as of this encounter Visit Diagnoses Diagnosis Primary hypertension Unspecified essential hypertension documented in this encounter Additional Health Concerns Assessment Noted Time PHQ-9 Depression Total Score: 0 01/27/20 25 1:31 PM EDT documented as of this encounter Care Teams Land Clearer Relationship Specialty Start Date End Date Nilda Chew MD [address] [place] [address] PCP - General Family Medicine 08/06/12 Daryn Nair MD [address] [place] [address] 3rd [place] [address] Cardiology 02/23/25 documented as of this encounter
--- OUTSIDE RECORDS SUMMARY | 2025-07-13 02:27 | XMS_ITS | Encounter Summary ---
Author Organization [employer] Address 75 [facility] 7 [place] [address] Care Team Providers Care Leadership Program Associate Name Role Phone Nilda Chew MD Primary Care Provider [phone] Zayra Cooley PharmD Unavailable Daryn Nair MD Unavailable [phone] Reason for Visit * Reason Comments Med Refill Encounter Details Date Type Department Care Team (Late st Contact Info) Description 01/31/2024 Refill [facility] MEDICINE [address] [place], [place] [phone] Nilda Chew MD [address] [place], [place] [phone] Dyslipidemia; Type 2 diabetes mellitus with hyperglycemia, without long-term current use of insulin ([facility]) Social History Tobacco Use Types Packs/Day Years [...] PM EST Office Visit [facility] MEDICINE [address] [place] [address] Nilda Chew MD [address] [place] [address] 10/25/2025 11:00 AM EST Office Visit [facility] OPTOMETRY [address] [place] [address] Shellie Rose, CATHLEEN [address] [place] [address] documented as of this encounter Goals Goal [...] documented as of this encounter Care Teams Leadership Program Associate Relationship Specialty Start Date End Date Nilda Chew MD [address] [place] [address] PCP - General Family Medicine 08/06/12 Zayra Cooley, Maria LuisaD [address] [place] [address] Pharmacist Internal Medicine 11/20/22 11/18/24 Daryn Nair MD [address] [place] [address] 3rd [place] [address] Cardiology 02/23/25 documented as of this encounter
--- OUTSIDE RECORDS SUMMARY | 2025-07-13 02:27 | XMS_ITS | Encounter Summary ---
Author Organization [employer] Address 75 [facility] 7 [place] [address] Care Team Providers Care Automatic Equipment Technician Name Role Phone Nilda Chew MD Primary Care Provider + [phone] Zayra Cooley PharmD Unavailable Daryn Nair MD Unavailable [phone] Reason for Visit * Reason Onset Date Comments BAND SAW OPERATOR Services 12/29/2022 I called frandy to the patient's request for BAND SAW OPERATOR services. She stated that she needs assistance with housekeeping, shopping, medications, bathing, and getting dressed. I informed her that after she is referred, she will receive a call to schedule an evaluation. She verbalized understanding. Encounter Details Date Type Department Care Team (Late st Contact Info) Description 12/29/[address] [facility] MEDICINE [address] [place] [address] Nilda Chew MD 230 [place] [address] BAND SAW OPERATOR Services (I called regarding the patient's request for BAND SAW OPERATOR services. She stated that she needs assistance [...] EDT Received auth to release, TC to [facility] piter gifford/Vivi, given all information for referral for BAND SAW OPERATOR services, given dtr information to contact her for set up. * Telephone Encounter - Danna Gonzalez LPN - 12/30/2022 9:10 AM EDT Piter gifford/dtr on what programs we have, she would like to go through [facility] so that her mom can be [...] Description 09/06/2025 2:15 PM EST Office Visit [facility] MEDICINE [address] [place] [address] Nilda Chew MD 230 [place] [address] 10/25/2025 11:00 AM EST Office Visit [facility] OPTOMETRY [address] [place] [address] Milton Shellie, OD [address] [place] [address] documented as of this encounter Goals Goal [...] documented as of this encounter Care Teams Automatic Equipment Technician Relationship Specialty Start Date End Date Nilda Chew MD 230 [place] [address] PCP - General Family Medicine 08/06/12 Zayra Cooley, PharmD 230 [place] [address] Pharmacist Internal Medicine 11/20/22 11/18/24 Daryn Nair MD [address] [place] [address] 3rd [place] [address] Cardiology 02/23/25 documented as of this encounter
--- OUTSIDE RECORDS SUMMARY | 2025-07-13 02:27 | XMS_ITS | Encounter Summary ---
Author Organization [employer] Address 75 [facility] 7 [place] [address] Care Team Providers Care Calender Roll Operator Name Role Phone Nilda Chew MD Primary Care Provider +- [phone] Zayra Cooley PharmD Unavailable [phone] Daryn Nair MD Unavailable [phone] Encounter Details Date Type Department Care Team (Late st Contact Info) Description 07/15/2023 Abstract [facility] MEDICINE 230 [place], [place] [phone] Nilda Chew MD 230 [place], [place] [phone] Social History Tobacco Use Types Packs/Day Years [...] Description 09/06/2025 2:15 PM EST Office Visit [facility] MEDICINE 230 [place] [address] Nilda Chew MD 230 [place] [address] 10/25/2025 11:00 AM EST Office Visit [facility] OPTOMETRY [address] [place] [address] Milton, Shellie, OD [address] [place] [address] documented as of this encounter Goals Goal [...] Region Laterality Modality Other us Historical Provider MD HEALTH MAINTENANCE Final Result documented in this encounter Visit Diagnoses Not on filedocumented in this encounter Additional Health Concerns Assessment Noted Time PHQ-9 Depression Total Score: 5 10/31/19 23 2:24 PM EST documented as of this encounter Care Teams Calender Roll Operator Relationship Specialty Start Date End Date Nilda Chew MD [address] [place] [address] PCP - General Family Medicine 08/06/12 Zayra Cooley, Maria LuisaD 230 [place] [address] Pharmacist Internal Medicine 11/20/22 11/18/24 Daryn Nair MD [address] [place] [address] 3rd [place] [address] Cardiology 02/23/25 documented as of this encounter
--- OUTSIDE RECORDS SUMMARY | 2025-07-13 02:27 | XMS_ITS | Encounter Summary ---
Author Organization [employer] Address 75 [facility] 7 [place] [address] Care Team Providers Care Field Support Representative Name Role Phone Nilda Chew MD Primary Care Provider [phone] Daryn Nair MD Unavailable Reason for Visit * Reason Onset Date Comments Medication Question 06/27/2025 Encounter Details Date Type Department Care Team (Late st Contact Info) Description 06/27/2025 Telephone [facility] MEDICINE 230 [place], [place] [phone] Nilda Chew MD [address] [place], [place] [phone] Medication Question Social History Tobacco Use Types Packs/Day Years [...] encounter Miscellaneous Notes * Telephone Encounter - Donna Pete RN - 06/27/2025 2:28 PM EST Telephone call returned to [facility] Cardiology. Spoke with SISSY Wheeler to clarify requestbelow and why venue manager no longer wants to Rx blood pressure med. Summer reports original prescription for valsartan didn't come from him so despite the fact that they are seeing pt for hypertension and she was just seen in February, Dr Nair is declining to refill Valsartan and is requesting PCP send. * Telephone Encounter - Krishna Brown - 06/27/2025 9:32 AM EST Tc from [facility] with [facility] calling to infrom the doctor wants pt to continue taking valsartan, Dr Nair does not want to refill the medication stating it can go through the pcp. If any questions contact Farida at [phone] documented in this encounter Plan of Treatment Upcoming Encounters Date Type Department Care Team (Late st Contact Info) Description 09/06/2025 2:15 PM EST Office Visit [facility] MEDICINE [address] [place] [address] Nilda Chew MD [address] [place] [address] 10/25/2025 11:00 AM EST Office Visit [facility] OPTOMETRY [address] [place] [address] Milton, Shellie, OD [address] [place] [address] documented as of this encounter Goals Goal Patient Goal Type Associated Problems Recent Progress Patient-Stated? Author Blood Pressure < 140/90 Blood Pressure 146/90( 9:27 AM EST) No Piers-Gambl e, Zayra, PharmD Record your blood pressure once per day Blood Pressure No Piers-Gambl e, Zayra, PharmD documented as of this encounter Visit Diagnoses Not on filedocumented in this encounter Additional Health Concerns Assessment Noted Time PHQ-9 Depression Total Score: 0 01/27/20 25 1:31 PM EDT documented as of this encounter Care Teams Field Support Representative Relationship Specialty Start Date End Date Nilda Chew MD [address] [place] [address] PCP - General Family Medicine 08/06/12 Daryn Nair MD [address] [place] [address] Drive 3rd [place] [address] Cardiology 02/23/25 documented as of this encounter
== END 2025-07-12 14:23 | disposition home or self-care (01) ==
LOC: HO.HKAS 14:05
PROVIDERS: PCP Family Medicine; Referring Provider Family Medicine; Visit Provider Internal Medicine Hypertension Specialist
DX: I12.9 Hypertensive chronic kidney disease with stage 1 through stage 4 chronic kidney disease, or unspecified chronic kidney disease (principal); N18.9 Chronic kidney disease, unspecified
CPT/HCPCS: 99204

== ENCOUNTER 2025-07-12 14:05 | Outpatient (REF) | payer MEDICARE, MEDICAID, SELFPAY ==
[2025-07-13 16:48] LABS: Prot Elec - Albumin 3.7 g/dL (3.8-4.8); Prot Elec - Alpha1 0.4 g/dL (0.2-0.3); Prot Elec - Alpha2 0.8 g/dL (0.5-0.9); Prot Elec - Beta 1 0.5 g/dL (0.4-0.6); Prot Elec - Beta 2 0.6 g/dL (0.2-0.5); Prot Elec - Gamma 1.3 g/dL (0.8-1.7); Prot Elec - Total Protein 7.3 g/dL (6.1-8.1)
[2025-07-13 21:44] LABS: Anti Nuclear Antibody Pattern Nuclear, Nucleolar; Anti Nuclear Antibody Screen POSITIVE (NEGATIVE); Anti Nuclear Antibody Titer 1:320 titer
[2025-07-14 14:08] LABS: Neutrophil Cyto Ab Screen NEGATIVE (NEGATIVE)
[2025-07-18 22:14] LABS: Phospholipase A2 IgG ELISA <4 RU/mL; Phospholipase A2 IgG IFA NEGATIVE (NEGATIVE)
== END 2025-07-12 14:06 | disposition home or self-care (01) ==
LOC: HO.HKASLDS 14:05
PROVIDERS: PCP Family Medicine; Referring Provider Family Medicine; Visit Provider Internal Medicine Hypertension Specialist
DX: I12.9 Hypertensive chronic kidney disease with stage 1 through stage 4 chronic kidney disease, or unspecified chronic kidney disease (principal); N18.9 Chronic kidney disease, unspecified; Z01.84 Encounter for antibody response examination; Z87.891 Personal history of nicotine dependence
CPT/HCPCS: 36415; 83520; 84165; 86036; 86038; 86039; 86160; 86255; 99202

== ENCOUNTER 2025-08-02 08:23 | Outpatient (REF) | payer MEDICARE, MEDICAID, SELFPAY ==
--- NOTE | ~2025-08-02 | US_ITS ---
CLINICAL HISTORY: N18.9 - Chronic kidney disease, unspecified US renal with Color Doppler Comparison: None Findings: Right kidney normal size and heterogeneous echotexture, 9.4 cm length. No hydronephrosis calculus or mass. Normal color flow. Left kidney normal size and heterogeneous echotexture, 13.7 cm length. No hydronephrosis or nephrolithiasis. Normal color flow. Exophytic indeterminate renal cortical lesion measuring 4.8 x 1.4 x 1.7 cm. Impression: 1. Indeterminate exophytic lesion left kidney possible complex cyst. Correlate with contrast-enhanced CT or MRI. This document has been electronically signed by: Nahun Barlow MD on 08/03/2025 09:58:47
== END 2025-08-02 08:24 | disposition home or self-care (01) ==
LOC: HO.US 08:23
PROVIDERS: PCP Family Medicine; Visit Provider Internal Medicine Hypertension Specialist
DX: N18.9 Chronic kidney disease, unspecified (principal)
CPT/HCPCS: 76775

== ENCOUNTER 2025-08-10 11:38 | Outpatient (REF) | payer MEDICARE, MEDICAID, SELFPAY ==
[2025-08-10 14:21] LABS: Appearance Urine Clear; Glucose Urine UA Negative (Negative); PH 6.0 (5.0-9.0); Specific Gravity - Urine 1.025 (1.005-1.025); UMIC TRIGGER UA YES
[2025-08-10 17:16] LABS: Total Protein Urine Random 331 mg/dL (<12)
== END 2025-08-10 11:39 | disposition home or self-care (01) ==
LOC: HO.HKASLDS 11:38
PROVIDERS: PCP Family Medicine; Visit Provider Internal Medicine Hypertension Specialist
DX: N28.1 Cyst of kidney, acquired (principal); I12.9 Hypertensive chronic kidney disease with stage 1 through stage 4 chronic kidney disease, or unspecified chronic kidney disease; N18.9 Chronic kidney disease, unspecified; Z87.891 Personal history of nicotine dependence
CPT/HCPCS: 81001; 82570; 84156

== ENCOUNTER 2025-08-10 11:46 | Outpatient (AMB) | payer MEDICARE, MEDICAID, SELFPAY ==
--- NOTE | 2025-08-10 11:47 | HO.NEPHOV ---
Vital Signs 08/10/25 11:47 Height 5 ft Intake Visit Reasons: F/U Media Buyer Required: No Accompanied by: Son Allergies No Known Allergies Allergy (Verified 08/10/25 11:48) Medication List - Last Reconciled 08/10/25 by Levi Ramirez MD albuterol sulfate 90 mcg/actuation (Ventolin HFA) 2 puffs inhalation Q4H PRN allopurinol 100 mg PO DAILY apixaban (Eliquis) 5 mg PO BID calcium carbonate-vitamin D3 600 mg-10 mcg (400 unit) 1 tab PO diltiazem HCl ER 60 mg PO metoprolol tartrate 100 mg PO BID rosuvastatin 20 mg PO DAILY sertraline 50 mg PO QAM valsartan 320 mg PO QAM HPI Comments Details: The patient is a 64-year-old female presenting for a nephrology consultation to evaluate her kidney function and proteinuria. She has a history of a CKD , history of obstructive uropathy and status post stent placement few years ago. Recent lab work from two weeks prior showed her kidney function was at 48%, which has been stable from a measurement taken two years ago. Serum creatinine is around 1.13 mg/dL and remains relatively stable The patient has a history of hypertension, which is reportedly under control with blood pressure readings around 120/72 mmHg to 136/90 mmHg. She is currently taking valsartan. She is considered to have borderline diabetes but takes no medication for it, and her recent blood sugar levels have been normal. The patient reports swelling in her legs but denies any trouble breathing, nausea, vomiting, or blood in the urine. She has experienced some recent weight loss. The patient reports no known drug allergies. 08/10/25 Televisit [facility] Medical History Morbid obesity Persistent atrial fibrillation Hyperlipidemia HTN (hypertension) Surgical History Hx of tubal ligation History of section Family History Father HTN (hypertension) Mother Epilepsia Alzheimer disease Paternal Uncle HTN (hypertension) Sister HTN (hypertension) Social History (Reviewed 08/10/25 @ 11:47 by AICHA Duong Household Members: Spouse Housing: House Alcohol intake: former Patient Tobacco Use Status: Former Tobacco user Telehealth Telehealth Telehealth Platform: Telephone Location of provider rendering services: practice address Location of patient: address on file Patient Identification confirmed using: Name, : Yes Telehealth method: voice only Patient verbally consented to treatment: Yes Patient verbally consented to billing insurance company: Yes Patient informed of any privacy concerns related to visit: Yes Results Reviewed Results Reviewed: Jul 2025 Renal USG 1. Indeterminate exophytic lesion left kidney possible complex cyst. Correlate with contrast-enhanced CT or MRI. Nephrology Results: Sodium, (135-145) 143 mmol/L 06/26/25 Potassium, (3.3-5.1) 4.1 mmol/L 06/26/25 Chloride, (96-108) 109 mmol/L H 06/26/25 Carbon Dioxide, (22-29) 27 mmol/L 06/26/25 BUN, (9-16) 25 mg/dL H 06/26/25 Creatinine, (0.5-1.4) 1.13 mg/dL 06/26/25 Calcium, (8.4-10.2) 9.0 mg/dL 06/26/25 Urine Creatinine 79.31 mg/dL 06/26/25 Renal US 08/03/25 Assessment & Plan Assessment & Plan (1) Renal cyst, acquired, left: Code(s): N28.1 - Cyst of kidney, acquired Category: Medical (2) Chronic kidney disease: Code(s): N18.9 - Chronic kidney disease, unspecified Category: Medical (3) Essential (primary) hypertension: Code(s): I10 - Essential (primary) hypertension Category: Medical Plan Proteinuria, and Chronic Kidney Disease stage III -in the setting of Hypertension and obesity - The patient's kidney function is at 48%, which has been stable for the past two years. Proteinuria most likely due to combination of obesity and hypertension. - The goal is to maintain the current kidney function and prevent further decline. - Diabetes is an unlikely cause of the proteinuria given her normal blood sugars. - Blood pressure is reasonably controlled - Ordered blood and urine tests to investigate the cause of the proteinuria. - An ultrasound of the kidneys will be scheduled. Serological workup has been ordered. - Continue all current medications without changes, specifically noting that valsartan is beneficial for reducing proteinuria and controlling blood pressure. - The patient was advised to follow a low-salt diet and drink plenty of water. - The patient was counseled to avoid all NSAIDs, including Aleve, Advil, Motrin, naprosyn, and ibuprofen, as they can negatively affect kidney function, especially with valsartan. - Tylenol is considered safe for use. - A follow-up appointment is scheduled in three weeks to review the results. Based on results of the serological tests and workup she might require a kidney biopsy for definite diagnosis 08/10/25 Work up in [facility] USG shows indeterminate left ranl cyst CT scan ordered ( spoke to son also over the phone) Orders: Orders CT abdomen pelvis w IV con Today N28.1 - Cyst of kidney, acquired Coding Level of Care Code Tele New Pt Level 3 (10851) Diagnoses Renal cyst, acquired, left N28.1 Chronic kidney disease N18.9 Essential (primary) hypertension I10
== END 2025-08-10 15:00 | disposition home or self-care (01) ==
LOC: HO.HKA 11:46
PROVIDERS: PCP Family Medicine; Visit Provider Internal Medicine Hypertension Specialist
DX: N28.1 Cyst of kidney, acquired (principal); I12.9 Hypertensive chronic kidney disease with stage 1 through stage 4 chronic kidney disease, or unspecified chronic kidney disease; N18.9 Chronic kidney disease, unspecified
CPT/HCPCS: 99213